=== PATIENT | female | born 1965 | race Caucasian/White ===

== ENCOUNTER 2024-09-06 22:33 | Inpatient (IN) ==
--- NOTE | 2024-09-06 22:55 | Emergency Department Note ---
Impression & Plan Bilateral flank pain, Hyponatremia, Dysuria, Hypomagnesemia, Tachycardia ED Provider Note CHIEF COMPLAINT: UTI, vomiting, fever HISTORY OF PRESENTING ILLNESS: This 59-year-old female patient presents to the emergency department for evaluation of burning with urination, blood in her urine, nausea, vomiting, and bilateral flank pain. Symptoms started 3-4 days ago, but getting progressively worsened. She now feels like she has a fever. She rates her discomfort as 7/10. She has a history of UTIs in the past and has had pyelonephritis in the past. She sees a [facility] Urologist because of frequent infections in the past, but she states that she has been doing well recently. She takes methenamine BID and Vitamin C to prevent UTIs. Denies chest pain or SOB. Denies problems with her BMs. REVIEW OF SYSTEMS: See HPI for pertinent positives and pertinent negatives. ALLERGIES: Doxycycline - unknown reaction, Keflex - Rash MEDICATIONS: Atenolol, Lisinopril, Pristiq, Metformin, Methenamine, Singulair, Pantoprazole, Lipitor, Basaglar PAST MEDICAL HISTORY: HTN, DM, Allergic Rhinitis, GERD, high cholesterol, Depression, frequent UTIs PHYSICAL EXAM: VITALS: Vitals are noted on the nurse's note and reviewed by myself. GENERAL: Non toxic, no acute distress, non-diaphoretic. SKIN: Capillary refill <2 sec. EYES: PERRLA. EOMI. Conjunctivae without injection, sclerae without icterus. NOSE: Patent without discharge. MOUTH: Mucous membranes moist. Uvula midline. Airway patent. NECK: Supple without nuchal rigidity. HEART: Regular rate and rhythm without murmurs gallops or rubs. LUNGS: Clear to auscultation bilaterally without wheezes, rales or rhonchi. No retractions or accessory muscle use. ABDOMEN: Positive bowel sounds x 4. Normal tympanic percussion. Soft, tender to palpation in the bilateral flanks as well as mildly in the left lower quadrant. Mildly positive bilateral CVA tenderness. No masses or organomegaly. Saldaña sign negative. No guarding or rebound tenderness. No focal RLQ tenderness. MUSCULOSKELETAL: No gross musculoskeletal defects. NEURO: Patient was alert and oriented. No focal neurological deficits. DIFFERENTIAL DIAGNOSIS: Differential diagnosis includes hepatitis, pancreatitis, cholecystitis, cholelithiasis, appendicitis, kidney stone, pyelonephritis, UTI, gastritis, gastroenteritis, mesenteric adenitis, obstruction, constipation, hernia, abdominal abscess, perforation, diverticulitis, IBD, ischemic colitis, abdominal aortic aneurysm, , ectopic , ovarian cyst, ovarian torsion, acute salpingitis, or others. ED COURSE AND MEDICAL DECISION MAKING: MEDICATIONS GIVEN: Toradol 10 mg IV, Zofran 4 mg IV, 1 L normal saline solution bolus. 1 g magnesium IV. MONITOR: Continuous equipment monitor phototypesetting: Order was placed for continuous equipment monitor phototypesetting. Patient was placed on the equipment monitor phototypesetting and continuous pulse ox. Patient was noted to be in sinus tachycardia at an initial rate of 105 bpm per my interpretation. EKG: EKG was interpreted by myself and Dr. Tracy as sinus tachycardia at 130 bpm with possible supraventricular tachycardia, but no acute ST or T wave changes. INTERPRETATION OF LABS: I interpreted the labs with full lab results as below in the lab section of this note. Pertinent lab results discussed in the MDM section below. INTERPRETATION OF IMAGING: Chest x-ray was interpreted by myself is negative for acute cardiopulmonary etiology. Radiology report is still pending. Additional imaging studies were interpreted by myself and read by radiology as per the imaging section of this note. CT scan of the abdomen and pelvis with IV contrast showed no evidence of hydronephrosis, nephrolithiasis, or obstructive uropathy. There is hepatic steatosis and status postcholecystectomy. Diverticulosis with no evidence of diverticulitis. No bowel obstruction. No other acute abnormalities. EXTERNAL RECORDS REVIEWED: I reviewed the patient's last PCP visit from April 2024 to confirm her medication list. No recent urology office visit note in the system per case management. CONSULTATIONS: On-call hospitalist MDM SUMMARY: I examined the patient. The patient has a history of frequent UTIs and history of pyelonephritis. She started with urinary symptoms and bilateral flank pain 3 to 4 days ago. She now feels like she might have a fever, but was afebrile upon presentation. The patient states that she had been doing well recently with her UTIs after being started on methenamine BID and Vitamin C to prevent UTIs. An IV lock was placed and labs were drawn. The patient's blood sugar was elevated at 315 and she was initially tachycardic at 126, but she improved to the low 100s to 90s after 1 L normal saline solution bolus. She was given Toradol 10 mg IV and Zofran 4 mg IV with improvement of her pain. White blood cell count elevated 11.43. Hemoglobin normal at 12.8. Platelet count normal at 329. PT/INR normal. Sodium low at 124 with a normal potassium of 3.6. Glucose elevated at 315 and alk phos 125, but CMP otherwise unremarkable. Magnesium low 1.6 and she was given 1 g of magnesium IV. Lipase normal. Urinalysis with 2+ glucose, but no evidence for UTI and no blood. CT scan of the abdomen and pelvis with IV contrast showed no evidence of hydronephrosis, nephrolithiasis, or obstructive uropathy. There is hepatic steatosis and status postcholecystectomy. Diverticulosis with no evidence of diverticulitis. No bowel obstruction. No other acute abnormalities. When I was discussing the results of the patient's CT scan findings, the patient's heart rate went into the 150s. The patient states that she felt like her heart was beating faster, but she denied any chest pain or shortness of breath. EKG was interpreted by myself and Dr. Tracy as sinus tachycardia at 130 bpm with possible supraventricular tachycardia, but no acute ST or T wave changes. The patient's heart rate quickly resolved down to the low 100s and 90s again without any intervention. High-sensitivity troponin x 2 were normal. Chest x-ray was interpreted by myself is negative for acute cardiopulmonary etiology. I had a meaningful discussion about this patient with Dr. Tracy who agrees with my assessment and the treatment plan. Due to the patient's hyponatremia, hypomagnesemia, and episode of sinus tachycardia versus supraventricular tachycardia, we feel the patient requires admission for further evaluation and treatment. I spoke with the on-call hospitalist who agreed to admit the patient for further management. Please refer to their dictation for further details. The patient's care was transferred in stable condition. DIAGNOSIS: Bilateral flank pain Dysuria Hyponatremia Hypomagnesemia Tachycardia Past Med/Surg History Problem List (Updated 09/07/24 @ 20:30 by Marietta Barkley PA-C) Tachycardia (Acute) Hypomagnesemia (Acute) Dysuria (Acute) Hyponatremia (Acute) Bilateral flank pain (Acute) Irritable bladder Hypothyroidism Insulin-requiring or dependent type II diabetes mellitus Psychogenic polydipsia Hypo-osmolar hyponatremia Hyponatremia Social History Smoking Status: Never smoker Second Hand Exposure: No; Do You Dip or Chew Tobacco: No; Tobacco Cessation Education Requested by Patient: No Hx Alcohol Use: No Hx Substance Use: No Preferred Language: Monegasque Communication Ability: Effective Banquet Server Required: No Beliefs That Will Affect Care: None Current Living Situation: Alone Other Information That Helps Us Care for You: No Feels Safe at Home: Yes Safety Concerns: Feels Safe At This Time Assistive Devices: None Allergies Allergies Allergy/AdvReac Type Severity Reaction Status Date / Time cephalexin [From Keflex] Allergy Rash Verified 09/06/24 23:12 doxycycline Allergy Verified 09/06/24 23:12 Home Meds Home Medications Medication Instructions Recorded Confirmed atenolol 25 mg tablet 25 mg PO DAILY 09/07/24 09/07/24 atorvastatin 40 mg tablet (Lipitor) 40 mg PO DAILY 09/07/24 09/07/24 dulaglutide 4.5 mg/0.5 mL 4.5 mg subcut WK 09/07/24 09/07/24 subcutaneous pen injector (Trulicity) insulin aspart U-100 100 unit/mL subcut 09/07/24 (3 mL) subcutaneous pen (Novolog FlexPen U-100 Insulin aspart) insulin glargine 100 unit/mL (3 16 unit subcut 09/07/24 mL) subcutaneous pen (Basaglar KwikPen U-100 Insulin) levothyroxine 25 mcg tablet 25 mcg PO DAILY 09/07/24 09/07/24 lisinopril 2.5 mg tablet 2.5 mg PO DAILY 09/07/24 09/07/24 metformin 1,000 mg tablet 1,000 mg PO BID 09/07/24 09/07/24 methenamine hippurate 1 gram tablet g 09/07/24 montelukast 10 mg tablet 10 mg PO 09/07/24 nitrofurantoin 100 mg PO BID 09/07/24 09/07/24 monohydrate/macrocrystals 100 mg capsule pantoprazole 40 mg tablet,delayed 40 mg PO DAILY 09/07/24 09/07/24 release pregabalin 75 mg capsule 75 mg PO BID 09/07/24 09/07/24 trospium 20 mg tablet 20 mg PO BID 09/07/24 09/07/24 Results & Data (ED) Vital Signs Vital Signs - 24 hr 09/06/24 22:38 09/06/24 22:52 09/06/24 23:01 Temperature 36.2 C L Temperature Source Temporal Artery Scan Pulse Rate 126 H 103 H Pulse Rate [Left] 102 H Pulse Rhythm Pulse Rhythm [Left] Regular Pulse Strength [Left] Normal Respiratory Rate 17 20 Respiratory Effort / Characteristics Non-Labored Spontaneous Non-Labored Spontaneous Respiratory Depth Normal Normal Respiratory Pattern Regular Regular Blood Pressure 158/79 H Blood Pressure [Left Arm] 156/81 H Blood Pressure Mean 105 Blood Pressure Mean [Left Arm] 106 Blood Pressure Position [Left Arm] Lying Pulse Oximetry 99 100 Oxygen Delivery Method Room Air Room Air Sepsis Recent Fever Within 48 Hours Yes Sepsis New/Unexplained Change in Mental Status No Sepsis Action Taken by Nursing No Action Required 09/06/24 23:13 09/07/24 01:00 09/07/24 02:52 Temperature Temperature Source Pulse Rate 108 H 127 H Pulse Rate [Left] 104 H Pulse Rhythm Regular Pulse Rhythm [Left] Regular Pulse Strength [Left] Normal Respiratory Rate 20 20 Respiratory Effort / Characteristics Non-Labored Spontaneous Respiratory Depth Normal Respiratory Pattern Blood Pressure Blood Pressure [Left Arm] 147/83 H Blood Pressure Mean Blood Pressure Mean [Left Arm] 104 Blood Pressure Position [Left Arm] Lying Pulse Oximetry 100 99 Oxygen Delivery Method Room Air Room Air Sepsis Recent Fever Within 48 Hours Sepsis New/Unexplained Change in Mental Status Sepsis Action Taken by Nursing Laboratory Data 09/07/24 06:35 09/07/24 06:35 Lab Results 09/06/24 09/07/24 Range/Units 22:47 02:57 WBC 11.43 H (4.8-10.8) K/ul RBC 4.34 (4.20-5.40) M/uL Hgb 12.8 (12.0-16.0) g/dl Hct 36.1 L (37.0-47.0) % MCV 83.2 (80.0-100.0) fL MCH 29.5 (25.0-34.0) pg MCHC 35.5 (32.0-36.0) g/dL RDW Std Deviation 37.4 (36.4-46.3) fL RDW Coeff of Tye 12.3 (11.5-14.5) % Plt Count 329 (130-400) K/uL MPV 10.9 (9.4-12.4) fL Immature Gran % (Auto) 0.4 % Neut % (Auto) 68.2 % Lymph % (Auto) 22.3 % [place] % (Auto) 8.1 % Eos % (Auto) 0.6 % Baso % (Auto) 0.4 % Neut # (Auto) 7.78 H (1.40-6.50) K/uL Lymph # (Auto) 2.55 (1.20-3.40) K/uL [facility] # (Auto) 0.93 H (0.11-0.59) K/uL Eos # (Auto) 0.07 (0.00-0.50) K/uL Baso # (Auto) 0.05 (0.00-0.20) K/uL Immature Gran # (Auto) 0.05 (0.01-0.20) K/uL PT 10.3 (9.0-12.0) Seconds INR 0.9 (0.9-1.1) Sodium 124 L (136-145) mmol/L Potassium 3.6 (3.5-5.1) mmol/L Chloride 89 L (98-107) mmol/L Carbon Dioxide 26 (21-32) mmol/L Anion Gap 9 (3-11) BUN 7 (6-23) mg/dl Creatinine 0.62 (0.6-1.2) mg/dl Est Cr Clr Drug Dosing 99.2 ml/min eGFR 102.52 BUN/Creatinine Ratio 11.3 (10-20) Glucose 315 H* (70-99(Fasting)) mg/dl Osmolality 272 L (280-300) mOsm/kg Calcium 10.2 (8.6-10.3) mg/dl Magnesium 1.6 L (1.7-2.4) mg/dl Total Bilirubin 0.7 (0.2-1.0) mg/dl AST 16 (13-39) U/L ALT 20 (7-52) U/L Alkaline Phosphatase 125 H (34-104) U/L Troponin I High Sens 6.0 4.4 (0-14) pg/ml Total Protein 7.9 (6.0-8.3) gm/dl Albumin 4.7 (3.4-5.0) gm/dl Globulin 3.2 (2.5-4.0) gm/dl Albumin/Globulin Ratio 1.5 (0.9-2) Lipase 12 (11-82) U/L Procalcitonin < 0.02 (0-0.5) ng/ml TSH 2.532 (0.300-4.500) uIu/ml Urine Color Yellow Urine Appearance Clear (Clear) Urine pH 5.5 (4.5-7.5) Ur Specific [place] 1.005 (1.000-1.030) Urine Protein Negative (Negative) Urine Glucose (UA) 2+ H (Negative) Urine Ketones Negative (Negative) Urine Blood Negative (Negative) Urine Nitrite Negative (Negative) Urine Bilirubin Negative (Negative) Urine Urobilinogen Negative (Negative) Ur Leukocyte Esterase Negative (Negative) Urine Osmolality 81 L (500-800) mOsm/kg Ur Random Sodium < 10 mmol/L Urine Opiates Screen Neg (Neg) Ur Methadone, Qual Neg (Neg) Urine Fentanyl Screen Neg (Neg) Urine Barbiturates Neg (Neg) Ur Phencyclidine (PCP) Neg (Neg) U Amphetamin/Meth Scrn Neg (Neg) MDMA (Ecstasy) Screen Neg (Neg) U Benzodiazepines Scrn Neg (Neg) Ur Cocaine Metabolite Neg (Neg) U Marijuana (THC) Screen Neg (Neg) Administered Medications Acetaminophen (Acetaminophen 500 Mg Tab) 500 mg PO Q6H PRN PRN Reason: fever/pain Stop: 10/07/24 04:30 Last Admin: 09/07/24 13:31 Dose: 500 mg Documented By: LESA Atenolol (Atenolol 25 Mg Tablet) 25 mg PO DAILY [facility] Stop: 10/07/24 08:59 Last Admin: 09/07/24 08:29 Dose: 25 mg Documented By: LESA Atorvastatin Calcium (Atorvastatin 40 Mg Tab) 40 mg PO DAILY [facility] Stop: 10/07/24 08:59 Last Admin: 09/07/24 08:29 Dose: 40 mg Documented By: LESA Enoxaparin Sodium (Enoxaparin Inj 40 Mg/0.4 Ml Syr) 40 mg SQ QAM [facility] Stop: 10/07/24 08:59 Last Admin: 09/07/24 08:29 Dose: 40 mg Documented By: LESA Insulin Aspart (Insulin Aspart Per Unit Charge) 0 units SC ACHS [facility] Stop: 10/07/24 11:29 Last Admin: 09/07/24 17:05 Dose: 5 units Documented By: LESA Co-signed By: YVONNE Admin: 09/07/24 11:51 Dose: 8 units Documented By: LESA Co-signed By: KEVIN Levothyroxine Sodium (Levothyroxine Sodium 25 Mcg Tablet) 25 mcg PO DAILYBB TONEY Stop: 10/07/24 06:29 Last Admin: 09/07/24 08:29 Dose: 25 mcg Documented By: LESA Oxybutynin Chloride (Oxybutynin Chloride Xl 5 Mg Tabcr) 5 mg PO DAILY TONEY Stop: 10/07/24 08:59 Last Admin: 09/07/24 08:29 Dose: 5 mg Documented By: LESA Pantoprazole Sodium (Pantoprazole 40 Mg Tab) 40 mg PO DAILY TONEY Stop: 10/07/24 08:59 Last Admin: 09/07/24 08:29 Dose: 40 mg Documented By: LESA Pregabalin (Pregabalin 75 Mg Cap) 75 mg PO BID TONEY Stop: 10/07/24 08:59 Last Admin: 09/07/24 08:27 Dose: Not Given Documented By: LESA Discontinued Medications Sodium Chloride (Nss) 1,000 mls @ 999 mls/hr IV .Q1H1M ONE Stop: 09/07/24 01:14 Last Infusion: 09/07/24 02:03 Dose: Infused Documented By: Admin: 09/07/24 00:38 Dose: 999 mls/hr Documented By: KT Magnesium Sulfate/Dextrose (Magnesium Sulfate / D5w) 1 gm in 100 mls @ 100 mls/hr IV NOW STA Stop: 09/07/24 03:59 Last Infusion: 09/07/24 05:12 Dose: Infused Documented By: Admin: 09/07/24 04:12 Dose: 100 mls/hr Documented By: HÉCTOR Insulin Aspart (Insulin Aspart Per Unit Charge) 0 units SC ONE STA Stop: 09/07/24 03:59 Last Admin: 09/07/24 04:15 Dose: 6 units Documented By: HÉCTOR Co-signed By: CARTER Insulin Glargine (Lantus Per Unit Charge) 10 units SQ NOW STA Stop: 09/07/24 03:32 Last Admin: 09/07/24 04:15 Dose: 10 units Documented By: HÉCTOR Co-signed By: CARTER Ioversol (Optiray 320 100ml) 100 ml IV ONCE ONE Stop: 09/07/24 00:28 Last Admin: 09/07/24 00:27 Dose: 93 ml Documented By: RUBY Ketorolac Tromethamine (Ketorolac Tromethamine 15 Mg/Ml Vial) 10 mg IV NOW STA Stop: 09/06/24 23:13 Last Admin: 09/06/24 23:19 Dose: 10 mg Documented By: KT Metoprolol Tartrate (Metoprolol Tartrate 1 Mg/Ml Vial) 2.5 mg IV NOW STA Stop: 09/07/24 03:13 Last Admin: 09/07/24 04:14 Dose: 2.5 mg Documented By: HÉCTOR Nitrofurantoin Macrocrystals (Nitrofurantoin Monohydrate 100 Mg Cap) 100 mg PO BID TONEY Stop: 10/07/24 08:59 Last Admin: 09/07/24 08:29 Dose: 100 mg Documented By: LESA Ondansetron HCl (Ondansetron Inj 2 Mg/Ml 2 Ml Vial) 4 mg IV NOW STA Stop: 09/06/24 23:13 Last Admin: 09/06/24 23:19 Dose: 4 mg Documented By: KT Potassium Chloride (Potassium Chloride Pwd 20 Meq Pack) 40 meq PO NOW STA Stop: 09/07/24 05:36 Last Admin: 09/07/24 06:39 Dose: 40 meq Documented By: IVETTE Discharge Plan Visit Data Chief Complaint: Hematuria Stated Complaint: UTI, VOMIT, FEVER CHILLS, ED Provider: Meet Tracy ED Midlevel Provider: Marietta Barkley Discharge Problem: Bilateral flank pain, Hyponatremia, Dysuria, Hypomagnesemia, Tachycardia Patient Disposition: Admitted As Inpatient Condition: Good Discharge Instructions Interventions: ED Discharge Assessment Last Done: 09/07/24 04:50
[2024-09-06] MEDS: ONDANSETRON INJ 2 MG/ML 2 ML VIAL IV STA (23:19)
[2024-09-06] MEDS: KETOROLAC TROMETHAMINE 15 MG/ML VIAL IV STA (23:19)
[2024-09-06 23:37] LABS: Appearance Urine Clear (Clear); Basophils # (auto) 0.05 K/uL (0.00-0.20); Basophils % (auto) 0.4 %; Bilirubin Urine Negative (Negative); Blood Urine Negative (Negative); Color Urine Yellow; Eosinophils # (auto) 0.07 K/uL (0.00-0.50); Eosinophils % (auto) 0.6 %; Glucose Urine UA 2+ (Negative); Hematocrit (blood only) 36.1 % (37.0-47.0); Hemoglobin 12.8 g/dl (12.0-16.0); Immature Granulocytes # (auto) 0.05 K/uL (0.01-0.20); Immature Granulocytes % (auto) 0.4 %; Ketones Urine Negative (Negative); Leukocyte Esterase Urine Negative (Negative); Lymphocytes # (auto) 2.55 K/uL (1.20-3.40); Lymphocytes % (auto) 22.3 %; Mean Corpuscular Hemoglobin 29.5 pg (25.0-34.0); Mean Corpuscular Hgb Conc 35.5 g/dL (32.0-36.0); Mean Corpuscular Volume 83.2 fL (80.0-100.0); Mean Platelet Volume 10.9 fL (9.4-12.4); Monocytes # (auto) 0.93 K/uL (0.11-0.59); Monocytes % (auto) 8.1 %; Neutrophils # (auto) 7.78 K/uL (1.40-6.50); Neutrophils % (auto) 68.2 %; Nitrite Urine Negative (Negative); Platelet Count 329 K/uL (130-400); Protein Urine Negative (Negative); RDW Coefficient of Variation 12.3 % (11.5-14.5); RDW Standard Deviation 37.4 fL (36.4-46.3); Red Blood Count 4.34 M/uL (4.20-5.40); Specific Gravity Urine 1.005 (1.000-1.030); Urobilinogen Urine Negative (Negative); White Blood Count 11.43 K/ul (4.8-10.8); pH Urine 5.5 (4.5-7.5)
[2024-09-07 00:03] LABS: INR 0.9 (0.9-1.1); Prothrombin Time 10.3 Seconds (9.0-12.0)
[2024-09-07 00:11] LABS: Albumin Globulin Ratio 1.5 (0.9-2); Albumin Level 4.7 gm/dl (3.4-5.0); BUN Creatinine Ratio 11.3 (10-20); Bilirubin,Total 0.7 mg/dl (0.2-1.0); Calcium 10.2 mg/dl (8.6-10.3); Creatinine Clr Calc Pharmacy 99.2 ml/min; Globulin 3.2 gm/dl (2.5-4.0); Magnesium 1.6 mg/dl (1.7-2.4); Potassium 3.6 mmol/L (3.5-5.1); Total Protein 7.9 gm/dl (6.0-8.3)
[2024-09-07] MEDS: OPTIRAY 320 100ml IV ONE (00:27)
[2024-09-07] MEDS: SODIUM CHLORIDE 0.9% 1,000 ML IV ONE (00:38)
--- NOTE | 2024-09-07 02:27 | CT Scan Report ---
Exam(s): CT ABDOMEN + PELVIS With Contrast IV Amt: 93 ML OPTIRAY 320 EXAM: CT Abdomen and Pelvis With Intravenous Contrast CLINICAL HISTORY: Reason for exam: Bilateral flank pain, urinary symptoms, h/o pyelo. TECHNIQUE: Axial computed tomography images of the abdomen and pelvis with intravenous contrast. CTDI is 20 mGy and DLP is 1065 mGy-cm. Automated exposure control was utilized for the study. A dose lowering technique was utilized adhering to the principles of ALARA. CONTRAST: Patient received 93 ML OPTIRAY 320 of IV contrast COMPARISON: No relevant prior studies available. FINDINGS: Lung bases: Unremarkable. No mass. No consolidation. ABDOMEN: Liver: Hepatic steatosis. Gallbladder and bile ducts: Cholecystectomy. No ductal dilation. Pancreas: Unremarkable. No mass. No ductal dilation. Spleen: Unremarkable. No splenomegaly. Adrenals: Unremarkable. No mass. Kidneys and ureters: Unremarkable. No hydronephrosis, nephrolithiasis, or obstructive uropathy. Stomach and bowel: No acute diverticulitis. No small bowel obstruction. No free intraperitoneal air. PELVIS: Appendix: No findings to suggest acute appendicitis. Bladder: Unremarkable. No mass. Reproductive: Unremarkable as visualized. ABDOMEN and PELVIS: Intraperitoneal space: Unremarkable. No free air. No significant fluid collection. Bones/joints: Degenerative changes of the spine. No acute fracture. No dislocation. Soft tissues: Unremarkable. Vasculature: Atherosclerotic changes of the aorta. No abdominal aortic aneurysm. Lymph nodes: Unremarkable. No enlarged lymph nodes. IMPRESSION: 1. No hydronephrosis, nephrolithiasis, or obstructive uropathy. 2. Hepatic steatosis. 3. Cholecystectomy. 4. No acute diverticulitis. No small bowel obstruction. No free intraperitoneal air. Electronically signed by: Noé Melendez MD 09/07/24 02:26 AM
--- NOTE | 2024-09-07 03:29 | History & Physical Report ---
Date of Service September 07, 2024 Assessment & Plan (1) Hyponatremia: Plan: Acute on chronic Corrected serum sodium level for hyperglycemia 127 Possible to underlying psychogenic polydipsia Tachycardia secondary to illness rule out active amphetamine abuse hypertension, slightly elevated hyperlipidemia, on statin Rx bronchial asthma, not in acute exacerbation DM 2 insulin requiring, hyperglycemia on ER blood work, suboptimal control as of outpatient hemoglobin A1c of 7.7 from last year hypothyroidism, euthyroid as of today's TSH chronic anemia, hemoglobin better than baseline possibly from mild hemoconcentration IBS recurrent UTIs on chronic methenamine suppression Rx/chronic cystitis/history stress/urge urinary incontinence/neurogenic bladder as per records, workup negative for acute infection, suspect psychiatric component to patient's symptom s given normal UA and review of outpatient provider notes. schizoaffective disorder/anxiety/mood disorder, at baseline as per patient chronic pain/chronic fatigue syndrome past tobacco abuse PCU given tachycardia 1.5 L fluid restriction for now Hyponatremia workup Recheck serum sodium after initial fluid bolus at the ER Hold lisinopril for now given chronic hyponatremia Nephrology consult Re: Hyponatremia Urine tox IV Lopressor [address] of patient's home atenolol Basal bolus insulin, ISS BG goal 1 10-1 40, carb count coverage, update hemoglobin A1c DVT prophylaxis. Lovenox subcu Full code Text document was generated using [employer] voice recognition software. It may contain grammatical or spelling errors. Kindly contact undersigned for clarification of any documentation item in question. History of Present Illness Chief Complaint: UTI, hematuria Primary Care Provider: Dr. Escalera/Sandy TORRES History obtained from patient and records. Medical history significant for hypertension, hyperlipidemia, bronchial asthma, DM 2 insulin requiring, hypothyroidism, chronic hyponatremia, chronic anemia (baseline hemoglobin of 11), IBS, recurrent UTIs on chronic methenamine suppression Rx, chronic cystitis, history stress/urge urinary incontinence, neurogenic bladder as per records, schizoaffective disorder as per records, anxiety/mood disorder, chronic pain, chronic fatigue syndrome, history amphe tamine abuse as per records, past tobacco abuse. Patient is a resident of [place], [place] who drove to town yesterday looking for shopping places. Recent overnight confinement at [place], [place] last April 2024 for UTI symptoms and hyponatremia. Serum sodium 127 at time of admission. Hyponatremia attributed by patient to stress and dehydration as per documentation. Contradictory prescriptions during confinement as per discharge note. As per patient, she was pulled over the road by police because there were " a lot of accidents yesterday." She then told police dispatcher that she has had 2 days history of achy abdominal and flank pain and hematuria symptoms. No fever, no chills, no chest pain, no SOB. Admits to drinking at least 2 L of water every day. Denies unusual stress. She requested to be brought to a nearby hospital to get checked out while her vehicle was impounded. Highest heart rate of 150 documented at the ER. Medical History as above Surgical History : Dental surgery, silicone implant, cholecystectomy, urologic procedures Family History : Heart disease, DM, mental illness Personal/Social history : Past tobacco abuse, no EtOH intake Allergies Allergy/AdvReac Type Severity Reaction Status Date / Time cephalexin [From Keflex] Allergy Rash Verified 09/06/24 23:12 doxycycline Allergy Verified 09/06/24 23:12 Home Medications Medication Instructions Recorded Confirmed Type atenolol 25 mg tablet 25 mg PO DAILY 09/07/24 09/07/24 History atorvastatin 40 mg tablet (Lipitor) 40 mg PO DAILY 09/07/24 09/07/24 History dulaglutide 4.5 mg/0.5 mL 4.5 mg subcut WK 09/07/24 09/07/24 History subcutaneous pen injector (Trulicity) insulin aspart U-100 100 unit/mL subcut 09/07/24 History (3 mL) subcutaneous pen (Novolog FlexPen U-100 Insulin aspart) insulin glargine 100 unit/mL (3 16 unit subcut 09/07/24 History mL) subcutaneous pen (Basaglar KwikPen U-100 Insulin) levothyroxine 25 mcg tablet 25 mcg PO DAILY 09/07/24 09/07/24 History lisinopril 2.5 mg tablet 2.5 mg PO DAILY 09/07/24 09/07/24 History metformin 1,000 mg tablet 1,000 mg PO BID 09/07/24 09/07/24 History methenamine hippurate 1 gram tablet g 09/07/24 History montelukast 10 mg tablet 10 mg PO 09/07/24 History nitrofurantoin 100 mg PO BID 09/07/24 09/07/24 History monohydrate/macrocrystals 100 mg capsule pantoprazole 40 mg tablet,delayed 40 mg PO DAILY 09/07/24 09/07/24 History release pregabalin 75 mg capsule 75 mg PO BID 09/07/24 09/07/24 History trospium 20 mg tablet 20 mg PO BID 09/07/24 09/07/24 History Past Med/Surg History Problem List (Updated 09/07/24 @ 05:36 by Corona Phillips MD) Hyponatremia Social History Smoking Status: Never smoker Second Hand Exposure: No; Do You Dip or Chew Tobacco: No; Tobacco Cessation Education Requested by Patient: No Hx Alcohol Use: No Hx Substance Use: No Preferred Language: Lithuanian Communication Ability: Effective Technical Artist Required: No Beliefs That Will Affect Care: None Current Living Situation: Alone Other Information That Helps Us Care for You: No Feels Safe at Home: Yes Safety Concerns: Feels Safe At This Time Assistive Devices: None Review of Systems Review of Systems: As per HPI, all other systems reviewed and negative Physical Exam Physical Exam: GENERAL: Comfortable, pleasant, no respiratory distress SKIN: Normal color, warm HEENT: [place] palpebral conjunctivae, no ptosis, dry buccal mucosa NECK : Supple, no tenderness CHEST : CTA, no tenderness HEART : Tachycardic, no obvious murmurs ABDOMEN: Some distention, minimal hypogastric tenderness EXTREMITIES : No LE swelling/tenderness, no other conspicuous deformities noted NEUROLOGIC : Coherent, no facial asymmetry, no other gross focality Results & Data Results & Data Vital Signs (Past 12 Hours) Vital Signs Temp Pulse Pulse Resp BP BP Pulse Ox 09/07/24 01:00 104 H 20 147/83 H 99 09/06/24 23:13 108 H 20 100 09/06/24 23:01 102 H 20 156/81 H 100 09/06/24 22:52 103 H 09/06/24 22:38 36.2 C L 126 H 17 158/79 H 99 O2 Del Method 09/07/24 01:00 Room Air 09/06/24 23:13 Room Air 09/06/24 23:01 Room Air 09/06/24 22:52 09/06/24 22:38 Room Air Laboratory Results Laboratory Results WBC 11.43 K/ul (4.8-10.8) H 09/06/24 22:47 RBC 4.34 M/uL (4.20-5.40) 09/06/24 22:47 Hgb 12.8 g/dl (12.0-16.0) 09/06/24 22:47 Hct 36.1 % (37.0-47.0) L 09/06/24 22:47 MCV 83.2 fL (80.0-100.0) 09/06/24 22:47 MCH 29.5 pg (25.0-34.0) 09/06/24 22:47 MCHC 35.5 g/dL (32.0-36.0) 09/06/24 22:47 RDW Std Deviation 37.4 fL (36.4-46.3) 09/06/24 22:47 RDW Coeff of Tye 12.3 % (11.5-14.5) 09/06/24 22:47 Plt Count 329 K/uL (130-400) 09/06/24 22:47 MPV 10.9 fL (9.4-12.4) 09/06/24 22:47 Immature Gran % (Auto) 0.4 % 09/06/24 22:47 Neut % (Auto) 68.2 % 09/06/24 22:47 Lymph % (Auto) 22.3 % 09/06/24 22:47 [place] % (Auto) 8.1 % 09/06/24 22:47 Eos % (Auto) 0.6 % 09/06/24 22:47 Baso % (Auto) 0.4 % 09/06/24 22:47 Neut # (Auto) 7.78 K/uL (1.40-6.50) H 09/06/24 22:47 Lymph # (Auto) 2.55 K/uL (1.20-3.40) 09/06/24 22:47 [place] # (Auto) 0.93 K/uL (0.11-0.59) H 09/06/24 22:47 Eos # (Auto) 0.07 K/uL (0.00-0.50) 09/06/24 22:47 Baso # (Auto) 0.05 K/uL (0.00-0.20) 09/06/24 22:47 Immature Gran # (Auto) 0.05 K/uL (0.01-0.20) 09/06/24 22:47 PT 10.3 Seconds (9.0-12.0) 09/06/24 22:47 INR 0.9 (0.9-1.1) 09/06/24 22:47 Sodium 124 mmol/L (136-145) L 09/06/24 22:47 Potassium 3.6 mmol/L (3.5-5.1) 09/06/24 22:47 Chloride 89 mmol/L (98-107) L 09/06/24 22:47 Carbon Dioxide 26 mmol/L (21-32) 09/06/24 22:47 Anion Gap 9 (3-11) 09/06/24 22:47 BUN 7 mg/dl (6-23) 09/06/24 22:47 Creatinine 0.62 mg/dl (0.6-1.2) 09/06/24 22:47 Est Cr Clr Drug Dosing 99.2 ml/min 09/06/24 22:47 eGFR 102.52 09/06/24 22:47 BUN/Creatinine Ratio 11.3 (10-20) 09/06/24 22:47 Glucose 315 mg/dl (70-99(Fasting)) H* 09/06/24 22:47 Osmolality 272 mOsm/kg (280-300) L 09/06/24 22:47 Calcium 10.2 mg/dl (8.6-10.3) 09/06/24 22:47 Magnesium 1.6 mg/dl (1.7-2.4) L 09/06/24 22:47 Total Bilirubin 0.7 mg/dl (0.2-1.0) 09/06/24 22:47 AST 16 U/L (13-39) 09/06/24 22:47 ALT 20 U/L (7-52) 09/06/24 22:47 Alkaline Phosphatase 125 U/L (34-104) H 09/06/24 22:47 Troponin I High Sens 6.0 pg/ml (0-14) 09/06/24 22:47 Total Protein 7.9 gm/dl (6.0-8.3) 09/06/24 22:47 Albumin 4.7 gm/dl (3.4-5.0) 09/06/24 22:47 Globulin 3.2 gm/dl (2.5-4.0) 09/06/24 22:47 Albumin/Globulin Ratio 1.5 (0.9-2) 09/06/24 22:47 Lipase 12 U/L (11-82) 09/06/24 22:47 Urine Color Yellow 09/06/24 22:47 Urine Appearance Clear (Clear) 09/06/24 22:47 Urine pH 5.5 (4.5-7.5) 09/06/24 22:47 Ur Specific [place] 1.005 (1.000-1.030) 09/06/24 22:47 Urine Protein Negative (Negative) 09/06/24 22:47 Urine Glucose (UA) 2+ (Negative) H 09/06/24 22:47 Urine Ketones Negative (Negative) 09/06/24 22:47 Urine Blood Negative (Negative) 09/06/24 22:47 Urine Nitrite Negative (Negative) 09/06/24 22:47 Urine Bilirubin Negative (Negative) 09/06/24 22:47 Urine Urobilinogen Negative (Negative) 09/06/24 22:47 Ur Leukocyte Esterase Negative (Negative) 09/06/24 22:47 Impressions Abdomen/Pelvis CT 09/06/24 23:13 Exam(s): CT ABDOMEN + PELVIS With Contrast IV Amt: 93 ML OPTIRAY 320 EXAM: CT Abdomen and Pelvis With Intravenous Contrast CLINICAL HISTORY: Reason for exam: Bilateral flank pain, urinary symptoms, h/o pyelo. TECHNIQUE: Axial computed tomography images of the abdomen and pelvis with intravenous contrast. CTDI is 20 mGy and DLP is 1065 mGy-cm. Automated exposure control was utilized for the study. A dose lowering technique was utilized adhering to the principles of ALARA. CONTRAST: Patient received 93 ML OPTIRAY 320 of IV contrast COMPARISON: No relevant prior studies available. FINDINGS: Lung bases: Unremarkable. No mass. No consolidation. ABDOMEN: Liver: Hepatic steatosis. Gallbladder and bile ducts: Cholecystectomy. No ductal dilation. Pancreas: Unremarkable. No mass. No ductal dilation. Spleen: Unremarkable. No splenomegaly. Adrenals: Unremarkable. No mass. Kidneys and ureters: Unremarkable. No hydronephrosis, nephrolithiasis, or obstructive uropathy. Stomach and bowel: No acute diverticulitis. No small bowel obstruction. No free intraperitoneal air. PELVIS: Appendix: No findings to suggest acute appendicitis. Bladder: Unremarkable. No mass. Reproductive: Unremarkable as visualized. ABDOMEN and PELVIS: Intraperitoneal space: Unremarkable. No free air. No significant fluid collection. Bones/joints: Degenerative changes of the spine. No acute fracture. No dislocation. Soft tissues: Unremarkable. Vasculature: Atherosclerotic changes of the aorta. No abdominal aortic aneurysm. Lymph nodes: Unremarkable. No enlarged lymph nodes. IMPRESSION: 1. No hydronephrosis, nephrolithiasis, or obstructive uropathy. 2. Hepatic steatosis. 3. Cholecystectomy. 4. No acute diverticulitis. No small bowel obstruction. No free intraperitoneal air. Electronically signed by: Noé Melendez MD 09/07/24 02:26 AM Diagnostic Findings Laboratory Results EKG could not be located at time of dictation.
[2024-09-07] MEDS ORDERED: GLUCOSE 40% GEL 15 GM TUBE PO PRN (03:31)
[2024-09-07] MEDS ORDERED: CARBOHYDRATES FOR HYPOGLYCEMIA PO PRN (03:31)
[2024-09-07] MEDS ORDERED: GLUCAGON FOR INJ 1 MG VIAL SQ PRN (03:31)
[2024-09-07] MEDS ORDERED: GLUCOSE 10 TAB/TUBE PO PRN (03:31)
[2024-09-07] MEDS ORDERED: DEXTROSE 50% 50 ML SYRINGE IV PRN (03:31)
[2024-09-07 03:37] LABS: Troponin I High Sensitivity 4.4 pg/ml (0-14)
[2024-09-07 03:46] LABS: Thyroid Stimulating Hormone 2.532 uIu/ml (0.300-4.500)
[2024-09-07] MEDS: MAGNESIUM SULFATE / D5W 1 GM/100 ML BAG IV STA (04:12)
[2024-09-07] MEDS: METOPROLOL TARTRATE 1 MG/ML VIAL IV STA (04:14)
[2024-09-07] MEDS: LANTUS PER UNIT CHARGE SQ STA (04:15)
[2024-09-07] MEDS: INSULIN ASPART PER UNIT CHARGE SC STA (04:15)
[2024-09-07] MEDS ORDERED: oxyCODONE HCL IR 5 MG TAB (IMMEDIATE RELEASE) PO PRN (04:31)
[2024-09-07 05:21] LABS: Amphetamines+Metham, Urine Neg (Neg); Barbiturates, Urine Neg (Neg); Benzodiazepine, Urine Neg (Neg); Cocaine, Urine Neg (Neg); Fentanyl, Urine Neg (Neg); MDMA (Ecstacy), Urine Neg (Neg); Marijuana, Urine Neg (Neg); Methadone, Urine Neg (Neg); Opiate, Urine Neg (Neg); Phencyclidine, Urine Neg (Neg)
[2024-09-07] MEDS: POTASSIUM CHLORIDE PWD 20 MEQ PACK PO STA (06:39)
[2024-09-07 07:00] LABS: Basophils # (auto) 0.03 K/uL (0.00-0.20); Basophils % (auto) 0.4 %; Eosinophils # (auto) 0.19 K/uL (0.00-0.50); Eosinophils % (auto) 2.3 %; Hematocrit (blood only) 33.6 % (37.0-47.0); Hemoglobin 11.5 g/dl (12.0-16.0); Immature Granulocytes # (auto) 0.03 K/uL (0.01-0.20); Immature Granulocytes % (auto) 0.4 %; Lymphocytes # (auto) 2.55 K/uL (1.20-3.40); Lymphocytes % (auto) 31.1 %; Mean Corpuscular Hemoglobin 29.3 pg (25.0-34.0); Mean Corpuscular Hgb Conc 34.2 g/dL (32.0-36.0); Mean Corpuscular Volume 85.5 fL (80.0-100.0); Mean Platelet Volume 10.3 fL (9.4-12.4); Monocytes # (auto) 1.01 K/uL (0.11-0.59); Monocytes % (auto) 12.3 %; Neutrophils # (auto) 4.39 K/uL (1.40-6.50); Neutrophils % (auto) 53.5 %; Platelet Count 269 K/uL (130-400); RDW Coefficient of Variation 12.6 % (11.5-14.5); RDW Standard Deviation 39.4 fL (36.4-46.3); Red Blood Count 3.93 M/uL (4.20-5.40)
--- NOTE | 2024-09-07 07:21 | XRay Report ---
XR chest 1V portable HISTORY: 59 years-old Female Bilateral flank pain acute chest and bilateral flank pain COMPARISON: CT abdomen and pelvis of same day TECHNIQUE: AP view of the chest FINDINGS: Cardiomediastinal and hilar silhouettes are normal. No pneumothorax, pleural effusion or airspace con solidation. Spondylotic spurring of the spine. IMPRESSION: No acute process. ACT 112: Negative or not required by law. The above report was generated using voice recognition software. It may contain grammatical, syntax o r spelling errors. Electronically signed by: Karel Sargent M.D. 09/07/2024 7:19 AM
[2024-09-07 07:54] LABS: BUN Creatinine Ratio 12.5 (10-20); Calcium 9.4 mg/dl (8.6-10.3); Creatinine Clr Calc Pharmacy 104.5 ml/min; Magnesium 2.1 mg/dl (1.7-2.4)
[2024-09-07] MEDS: PREGABALIN 75 MG CAP PO SCH (08:27)
[2024-09-07] MEDS: ENOXAPARIN INJ 40 MG/0.4 ML SYR SQ SCH (08:29)
[2024-09-07] MEDS: OXYBUTYNIN CHLORIDE XL 5 MG TABCR PO SCH (08:29)
[2024-09-07] MEDS: ATENOLOL 25 MG TABLET PO SCH (08:29)
[2024-09-07] MEDS: ATORVASTATIN 40 MG TAB PO SCH (08:29)
[2024-09-07] MEDS: PANTOprazole 40 MG TAB PO SCH (08:29)
[2024-09-07] MEDS: NITROFURANTOIN MONOHYDRATE 100 MG CAP PO SCH (08:29)
[2024-09-07] MEDS: LEVOTHYROXINE SODIUM 25 MCG TABLET PO SCH (08:29)
--- NOTE | 2024-09-07 10:47 | Electrocardiogram Report ---
Test Reason : Blood Pressure : */* mmHG Vent. Rate : 130 BPM Atrial Rate : 130 BPM P-R Int : 88 ms QRS Dur : 88 ms QT Int : 414 ms P-R-T Axes : 60 27 56 degrees QTcB Int : 609 ms Supraventricular tachycardia Abnormal ECG No previous ECGs available Confirmed by Manjit Spear ([id number]) on 09/07/2024 10:46:19 AM Referred By: REFERRED SELF Confirmed By: Manjit Spear
[2024-09-07] MEDS: INSULIN ASPART PER UNIT CHARGE SC SCH (11:51)
[2024-09-07] MEDS: ACETAMINOPHEN 500 MG TAB PO PRN (13:31)
--- NOTE | 2024-09-07 13:38 | Hospitalist Progress Note ---
Date of Service September 07, 2024 Assessment & Plan (1) Hypo-osmolar hyponatremia: (2) Psychogenic polydipsia: (3) Insulin-requiring or dependent type II diabetes mellitus: (4) Hypothyroidism: (5) Irritable bladder: Plan Patient presented with symptomatic hyponatremia, now significantly improved with nearly fluid restriction. Continue fluid restriction [facility] recommendations pending Activity as tolerated Stressed to the patient importance of fluid restriction as the main treatment for her recurrent hyponatremia Anticipate if sodium remains stable discharge home tomorrow Admission and Anticipated Discharge Date Admission Date: September 07, 2024 Subjective Patient very evasive to direct questions and how much water she actually drinks. Nurse reports that she is constantly asking for more water and suspicious that she may be getting water from the bathroom faucet. Physical Exam Physical Exam: Constitutional: Alert, nontoxic, no acute distress HEENT: Mucous membranes moist. Lungs: Clear to auscultation, decreased, no wheezes rales or rhonchi CV: S1-S2, regular Abdomen: Soft, nontender, nondistended Extremities: No significant edema Neuro: No focal deficits Psych: Cooperative, normal mood Results & Data Results & Data Vital Signs (Past 12 Hours) Vital Signs Temp Pulse Pulse Resp BP BP BP 09/07/24 10:32 37.0 C 81 17 128/77 09/07/24 08:29 92 H 09/07/24 07:33 37.0 C 105 H 18 125/73 09/07/24 05:04 09/07/24 05:04 37.1 C 99 H 18 153/81 H 09/07/24 04:29 99 H 147/80 H 09/07/24 03:48 123 H 18 153/84 H 09/07/24 02:52 127 H Pulse Ox O2 Del Method 09/07/24 10:32 97 Room Air 09/07/24 08:29 09/07/24 07:33 99 Room Air 09/07/24 05:04 Room Air 09/07/24 05:04 99 Room Air 09/07/24 04:29 09/07/24 03:48 98 Room Air 09/07/24 02:52 Diagnostic Findings Reviewed imaging, laboratory and diagnostic studies. Pertinent findings as below. Hemoglobin 11.5 Sodium 133, significantly improved Creatinine 0.56 Osmolality 272 TSH 2.53 Urine osmolality 81 Urine sodium less than 10
--- NOTE | 2024-09-07 16:47 | Nephrology Consultation ---
Date of Consultation September 07, 2024 Assessment & Plan (1) Hypo-osmolar hyponatremia: Patient with hyponatremia due to psychogenic polydipsia. Admission sodium of 124 but with a glucose of 315. Patient admitted to drinking way too much water yesterday. Her urine osmolality was 81 and urine sodium less than 10. She has been on a fluid restriction of 1.5 L. Sodium is up to 133 today. - Okay to monitor sodium daily - continue fluid limit of 1.5 L daily. Patient should be encouraged to continue fluid limit even after discharge. (2) Insulin-requiring or dependent type II diabetes mellitus: Patient with uncontrolled type 2 diabetes. The hyperglycemia is also contributing to her hyponatremia. She will continue insulin per primary team. History of Present Illness Reason for Consultation: Hyponatremia Requesting Physician: Dayo Howard DO Attending Physician: Dayo Howard DO History of Present Illness this is a 59-year-old female with history of hypertension, hyperlipidemia, asthma, type 2 diabetes, hypothyroidism, bipolar disorder, chronic hyponatremia resident of [place] who was admitted yesterday with hyponatremia with sodium of 124. Glucose was 315. Patient drove to the area for shopping and was reportedly pulled over by police for making a wrong turn. Patient has been trying to get off her diabetes medications by diet and exercise. She has lost weight about 60 lb. She is still takes insulin and Trulicity. Sodium is up trending to 133 today. She is making urine. Urine osmolality was 81 and urine sodium was less than 10. Patient knows she is supposed to have a fluid limit but for some reason yesterday she drank too much. She was also recently admitted at the [facility] for hyponatremia with sodium of 127 back in May 10, 2024. She feels better this morning denies any shortness of breath or urinary symptoms such as dysuria and frequency. No leg swelling. She is eating well. No diarrhea or vomiting. Allergies Allergy/AdvReac Type Severity Reaction Status Date / Time cephalexin [From Keflex] Allergy Rash Verified 09/06/24 23:12 doxycycline Allergy Verified 09/06/24 23:12 Home Medications Medication Instructions Recorded Confirmed Type atenolol 25 mg tablet 25 mg PO DAILY 09/07/24 09/07/24 History atorvastatin 40 mg tablet (Lipitor) 40 mg PO DAILY 09/07/24 09/07/24 History dulaglutide 4.5 mg/0.5 mL 4.5 mg subcut WK 09/07/24 09/07/24 History subcutaneous pen injector (Trulicity) insulin aspart U-100 100 unit/mL subcut 09/07/24 History (3 mL) subcutaneous pen (Novolog FlexPen U-100 Insulin aspart) insulin glargine 100 unit/mL (3 16 unit subcut 09/07/24 History mL) subcutaneous pen (Basaglar KwikPen U-100 Insulin) levothyroxine 25 mcg tablet 25 mcg PO DAILY 09/07/24 09/07/24 History lisinopril 2.5 mg tablet 2.5 mg PO DAILY 09/07/24 09/07/24 History metformin 1,000 mg tablet 1,000 mg PO BID 09/07/24 09/07/24 History methenamine hippurate 1 gram tablet g 09/07/24 History montelukast 10 mg tablet 10 mg PO 09/07/24 History nitrofurantoin 100 mg PO BID 09/07/24 09/07/24 History monohydrate/macrocrystals 100 mg capsule pantoprazole 40 mg tablet,delayed 40 mg PO DAILY 09/07/24 09/07/24 History release pregabalin 75 mg capsule 75 mg PO BID 09/07/24 09/07/24 History trospium 20 mg tablet 20 mg PO BID 09/07/24 09/07/24 History Patient History Social History Smoking Status: Never smoker Second Hand Exposure: No; Do You Dip or Chew Tobacco: No; Tobacco Cessation Education Requested by Patient: No Hx Alcohol Use: No Hx Substance Use: No Preferred Language: Wallisian Communication Ability: Effective Apprenticeship Representative Required: No Beliefs That Will Affect Care: None Current Living Situation: Alone Other Information That Helps Us Care for You: No Feels Safe at Home: Yes Safety Concerns: Feels Safe At This Time Assistive Devices: None Review of Systems 2 Review of Systems: All other systems were reviewed and negative except as noted in HPI Physical Exam 2 Physical Exam: General exam: Appears comfortable, no acute distress HEENT: Pupils are equal and reactive to light Neck: No JVD, neck is supple trachea is midline Respiratory system: Clear breath sounds bilaterally. Gastrointestinal: Abdomen is soft, non distended, non tender, bowel sounds are present CVS: Regular rate and rhythm. No murmurs, rubs or gallops Musculoskeletal: No joint or muscle tenderness Extremities: Non tender, no edema, peripheral pulses are present Neuro: Oriented, no tremors, no focal neurological deficits Skin: No rashes Results & Data Vital Signs (Past 12 Hours) Vital Signs Temp Pulse Pulse Resp BP BP Pulse Ox 09/07/24 14:54 37.1 C 90 17 110/69 95 09/07/24 10:32 37.0 C 81 17 128/77 97 09/07/24 08:29 92 H 09/07/24 07:33 37.0 C 105 H 18 125/73 99 09/07/24 05:04 09/07/24 05:04 37.1 C 99 H 18 153/81 H 99 O2 Del Method 09/07/24 14:54 Room Air 09/07/24 10:32 Room Air 09/07/24 08:29 09/07/24 07:33 Room Air 09/07/24 05:04 Room Air 09/07/24 05:04 Room Air Laboratory Results 09/07/24 06:35 09/06/24 09/07/24 22:47 06:35 WBC 11.43 H 8.20 RBC 4.34 3.93 L MCV 83.2 85.5 MCH 29.5 29.3 MCHC 35.5 34.2 RDW Std Deviation 37.4 39.4 RDW Coeff of Tye 12.3 12.6 Plt Count 329 269 MPV 10.9 10.3 Albumin 4.7
[2024-09-08 07:40] LABS: BUN Creatinine Ratio 15.8 (10-20); Calcium 9.2 mg/dl (8.6-10.3); Potassium 4.3 mmol/L (3.5-5.1)
[2024-09-08] MEDS: LANTUS PER UNIT CHARGE SQ SCH (08:30)
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
--- NOTE | 2024-09-08 16:56 | Hospitalist Progress Note ---
Date of Service September 08, 2024 Assessment & Plan (1) Psychogenic polydipsia: (2) Schizoaffective disorder: (3) Hypo-osmolar hyponatremia: (4) Insulin-requiring or dependent type II diabetes mellitus: (5) Hypothyroidism: (6) Irritable bladder: (7) Bipolar disorder with psychotic features: Plan Patient presented with symptomatic hyponatremia due to psychogenic polydipsia. With fluid restriction her sodium levels rapidly improved. She initially did not seem to be unstable with her psychiatric disease and plan was for her to be discharged today. However when preparing for discharge she had no one to pick her up that we could confirm, she reports that she did not have her car and it was impounded by the police. We were able to confirm that her car is impounded by the [place] police. 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 During this time she has unfortunately not been able to control her urges to drink water. She has been observed getting water out of the toilet to drink and has consumes significantly more than her fluid restriction. This is despite given strict instructions this morning by myself to only drink 3 cups of her bedside water container per day. She now has started to have emesis due to the excessive amounts of water that she has consumed. She is at high risk for further decompensation, severe hyponatremia and severe adverse events from this. She needs to be maintained in the hospital. Cancel discharge due to unstable psychiatric disease causing psychogenic polydipsia and high risk for recurrent symptomatic hyponatremia. One-to-one observation to ensure fluid restriction and no other self-harm Nurse given instructions to not allow patient to drink anything for at least 6 hours Consult psychiatry, communication with Dr. Sanford-he is aware of the patient and will evaluate her tomorrow for possible behavioral health unit admission. Check BMP in a.m. Case management involved to continue to help coordinate discharge plan Extensive review of outside records/epic chart. Patient has documented numerous no-show/cancellation to [facility] psychiatry appointments. She also apparently sees [facility] health. Reportedly she was to be on Depakote. Patient had a hospitalization at [facility] in [place] in April 2024 for hyponatremia with a problem list there stating she has severe bipolar disorder. Admission and Anticipated Discharge Date Admission Date: September 07, 2024 Subjective Patient sodium level was normal this morning. Discharge orders were written, however patient was unable to get transportation. And has been staying here in the hospital. Since this morning she was told not to drink out of the faucet. However, patient was observed getting water out of toilet. Patient has no insight into her need for fluid restriction. Also concerned that there is really no one that is coming to pick her up. Have not been able to confirm any of her story or contacts. Physical Exam Physical Exam: Constitutional: Alert, not toxic in appearance HEENT: Mucous membranes moist. Lungs: Clear to auscultation, decreased, no wheezes rales or rhonchi CV: S1-S2, regular Abdomen: Soft, nontender, nondistended Extremities: No significant edema Neuro: No focal deficits Psych: No insight into her condition, multiple excuses for why she drinks so much water, denies that she is drinking a lot of water despite the fact that she has been observed taking water from the toilet when then we restricted her from the faucet. Results & Data Results & Data Vital Signs (Past 12 Hours) Vital Signs Temp Pulse Resp BP BP Pulse Ox O2 Del Method 09/08/24 15:26 36.6 C 72 155/70 H 100 Room Air 09/08/24 09:37 36.8 C 99 H 16 125/73 128/82 96 09/08/24 07:07 36.8 C 99 H 128/82 96 Room Air Diagnostic Findings Reviewed imaging, laboratory and diagnostic studies. Pertinent findings as below. Sodium 139 glucose 186
[2024-09-09 07:10] LABS: BUN Creatinine Ratio 16.9 (10-20); Calcium 9.7 mg/dl (8.6-10.3); Potassium 4.3 mmol/L (3.5-5.1)
[2024-09-09] MEDS ORDERED: IBUPROFEN 200 MG TAB PO PRN (14:02)
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
[2024-09-09] MEDS ORDERED: haloperidoL 5 MG TAB PO PRN (14:53)
[2024-09-09] MEDS ORDERED: HALOPERIDOL LACTATE 5 MG/ML 1 ML VIAL IM PRN (14:53)
[2024-09-09] MEDS ORDERED: LORazepam 2 MG/1 ML VIAL IM PRN (14:53)
--- NOTE | 2024-09-09 15:46 | Discharge Summary ---
Discharge Summary Date of Service September 09, 2024 Principal Dx & Hospital Course #1 = Principal Diagnosis (1) Bipolar disorder with psychotic features: (2) Psychogenic polydipsia: (3) Schizoaffective disorder: (4) Hypo-osmolar hyponatremia: (5) Insulin-requiring or dependent type II diabetes mellitus: (6) Hypothyroidism: (7) Irritable bladder: Plan Patient presented to the emergency room with initial complaints of urinary discomfort. In the emergency room was noted to be tachycardic and significantly hyponatremic. She was admitted to the hospital. Her history revealed concern for psychogenic polydipsia. Laboratory testing confirmed a hypoosmolar hyponatremia. She was placed on strict fluid restriction. With fluid restriction her sodium normalized. There is no significant issues with cardiac arrhythmia on telemetry. She was seen by nephrology who agreed with fluid restriction and management of her diabetes. She is continued to be monitored in the hospital overnight. She continued to do well with the fluid restriction without someone watching her. On the morning of discharge her vital signs are stable. Her sodium was 139. It was stressed to her multiple times the need for fluid restriction and management of her diabetes. She expressed understanding. She will be discharged home to follow-up with her outpatient providers. As to the time of discharge, patient reports that her car has been impounded and she may not have any rod. Patient will be referred to case management social worker to help coordinate discharge to the impound yard. Unfortunately, case management, nursing staff was unable to confirm with the patient someone to pick her up. The patient spent much of the day in the hospital. During this time patient became much more persistent on drinking large amounts of water. She rapidly exceeded her fluid restricted amount. Nursing staff noted that when she was restricted from the faucet she took water from the toilet to drink. She drank so much water that she ended up having emesis. I evaluated the patient and decided to cancel the discharge and consult psychiatry. Patient was placed on one-to-one observation to make sure that she did not exceed her fluid restriction. More extensive review of outside EMR revealed that she does have a history of schizoaffective disorder and bipolar disorder. Notes revealed that she had numerous cancellations and missed office visits with psychiatry. Also appears is that she was not taking medications for her mental health disorder as what had been on med list from previous visits. She was completely restricted from warm water or fluids for the next 6 hours after this behavior was noted. She otherwise had an uneventful night. On the morning of anticipated discharge her sodium was 138. Her other electrolytes within normal range. Her creatinine was 0.65. Psychiatry evaluated the patient they felt that the patient had poor insight into her condition and was in early phases of acute manic episode with psychosis. They pursued a 302 involuntary commitment. Patient will be discharged to behavioral health unit when this is completed. Psychiatry recommended use of Haldol and/or Ativan if the patient become more agitated or anxious. Recommend continuing her other medications for her diabetes, hypothyroidism and dyslipidemia and hypertension. Notes For Next Care Provider Medication Changes From Visit Haldol and Ativan added for behavior control if needed Admission HPI Per Admitting Provider History obtained from patient and records. Medical history significant for hypertension, hyperlipidemia, bronchial asthma, DM 2 insulin requiring, hypothyroidism, chronic hyponatremia, chronic anemia (baseline hemoglobin of 11), IBS, recurrent UTIs on chronic methenamine suppression Rx, chronic cystitis, history stress/urge urinary incontinence, neurogenic bladder as per records, schizoaffective disorder as per records, anxiety/mood disorder, chronic pain, chronic fatigue syndrome, history amphetamine abuse as per records, past tobacco abuse. Patient is a resident of [place], [place] who drove to [facility] yesterday looking for shopping places. Recent overnight confinement at [place], [place] last April 2024 for UTI symptoms and hyponatremia. Serum sodium 127 at time of admission. Hyponatremia attributed by patient to stress and dehydration as per documentation. Contradictory prescriptions during confinement as per discharge note. As per patient, she was pulled over the road by police because there were " a lot of accidents yesterday." She then told master police detective that she has had 2 days history of achy abdominal and flank pain and hematuria symptoms. No fever, no chills, no chest pain, no SOB. Admits to drinking at least 2 L of water every day. Denies unusual stress. She requested to be brought to a nearby hospital to get checked out while her vehicle was impounded. Highest heart rate of 150 documented at the ER. Medical History as above Surgical History : Dental surgery, silicone implant, cholecystectomy, urologic procedures Family History : Heart disease, DM, mental illness Personal/Social history : Past tobacco abuse, no EtOH intake Admission Exam Per Admitting Provider See H&P Discharge Exam Constitutional: Alert, nontoxic HEENT: Mucous membranes moist. Lungs: Clear to auscultation, decreased, no wheezes rales or rhonchi CV: S1-S2, regular Abdomen: Soft, nontender, nondistended Extremities: No significant edema Neuro: No focal deficits Psych: Overall cooperative with a one-to-one observer, seems to be quite paranoid, quite suspicious, often speaking in a low voice so others would not hear her. Seems to have some ideas of grandeur. Has no insight into her behaviors as a cause of her medical issues. Has no insight at all into her mental health issues. In fact even at 1 time stated that she did not have schizophrenia. Updated Medication List Medication Instructions Recorded Confirmed Type atenolol 25 mg tablet 25 mg PO DAILY 09/07/24 09/07/24 History atorvastatin 40 mg tablet (Lipitor) 40 mg PO DAILY 09/07/24 09/07/24 History dulaglutide 4.5 mg/0.5 mL 4.5 mg subcut WK 09/07/24 09/07/24 History subcutaneous pen injector (Trulicity) insulin aspart U-100 100 unit/mL subcut 09/07/24 History (3 mL) subcutaneous pen (Novolog FlexPen U-100 Insulin aspart) insulin glargine 100 unit/mL (3 16 unit subcut 09/07/24 History mL) subcutaneous pen (Basaglar KwikPen U-100 Insulin) levothyroxine 25 mcg tablet 25 mcg PO DAILY 09/07/24 09/07/24 History metformin 1,000 mg tablet 1,000 mg PO BID 09/07/24 09/07/24 History methenamine hippurate 1 gram tablet g 09/07/24 History montelukast 10 mg tablet 10 mg PO 09/07/24 History pantoprazole 40 mg tablet,delayed 40 mg PO DAILY 09/07/24 09/07/24 History release pregabalin 75 mg capsule 75 mg PO BID 09/07/24 09/07/24 History trospium 20 mg tablet 20 mg PO BID 09/07/24 09/07/24 History Hospital Stay Data Consultations 09/07/24 03:07 ED Decision to Admit Stat 09/07/24 05:39 Consult Nephrology Routine 09/08/24 16:41 Consult Psychiatry Routine Diagnostic Imagining Performed 09/06/24 23:13 CT abd pelvis IV con only Stat Reviewed imaging, laboratory and diagnostic studies. Pertinent findings as below. Hemoglobin 11.5 Sodium 139, 138 potassium 4.3 Creatinine 0.56 Glucose 200 TSH 2.5 Pending Results Patient Have Any Pending Studies at Discharge: No Discharge Instructions Given to Patient (Per Discharging Provider) It is critical that you adhere to the fluid restriction. Continue to monitor your glucose and discuss further treatment options with your PCP Total Time Total Time Spent Total Time Spent (In Minutes): 39
[2024-09-09] MEDS: KETOROLAC TROMETHAMINE 10 MG TABLET PO PRN (17:07)
--- NOTE | 2024-09-09 18:24 | Communication Note ---
Date of Service: September 09, 2024 Following up on c/s from 09/07 for hyponatremia attributed to psychogenic polydipsia Pt not seen yesterday since plan was for d/c ; however after reevaluation, today decision made for 302 given concerns for active lilly and psychosis. Serum sodium corrected easily with 1.5L fluid limit. Attempted to see the patient this evening to reinforce importance of fluid limit > on my arrival to the room, she was very agitated about change in her care and concerns her pain and UTI not being addressed and that she was in wrong facility and numerous other ongoing issues. 2 nurses already in room listening to her, keeping her safe, monitoring situation. Do not believe that pt in this state will be able to understand/reflect on information about need for limiting fluid intake. Inpatient visit deferred. Will sign off NEPHRO D/C RECOMMENDATIONS -consider trial of 2L fluid limit while inpatient at [facility] >> believe she should be able to tolerate this -if fluid limit liberalized, monitor bmp daily x 4 days -will need a workable strategy for/help with limiting daily fluid intake after discharge -suggest weekly bmp x 3 if not under close supervision of fluid intake to ensure sodium not downtrending -follow up with nephrology prn
[2024-09-09] MEDS: LORazepam 1 MG TAB PO PRN (18:42)
--- NOTE | 2024-09-09 21:02 | Communication Note ---
Date of Service: September 09, 2024 8:55 PM Patient complaining of chest pain going to the left jaw and heart arm as per RN. Patient about to be discharged to [facility] as per RN. Think she is having a heart attack. Similar episode in 2004 related to her psych meds being messed up. Chest pain improved by nitroglycerin as per patient. PPE Irate, tearful EKG as per my interpretation : Rate 90, NSR, normal axis, T wave inversions anterolateral leads QTc greater than 500 Troponin 138 AP NSTEMI QTc prolongation Cancel discharge to [facility] PCU transfer Aspirin, beta-cheri (metoprolol in place of patient's atenolol), statin Rx, IV heparin TTE, Cardiology consult Re: NSTEMI N.p.o. anticipation of ischemic workup Hold Haldol given QTc prolongation Patient demanded to be transferred to facility close to residence, [facility] in [place], [place], citing displeasure with care at [facility]. Patient request cannot be accommodated due to active 302 involuntary commitment as per discussion with upper caser on-call/[facility] transfer center agent.
[2024-09-09] MEDS: NITROGLYCERIN SL 0.4 MG/TAB TAB SL STA (21:27)
[2024-09-09] MEDS: NITROGLYCERIN SL 0.4 MG/TAB TAB SL PRN (22:10)
[2024-09-09] MEDS: SODIUM CHLORIDE 0.9% 1,000 ML IV ONE (22:27)
[2024-09-09] MEDS: ASPIRIN 81 MG ECTAB PO SCH (22:27)
[2024-09-09] MEDS: ACETAMINOPHEN 1,000 MG/100 ML VIAL IV STA (22:27)
[2024-09-09 22:43] LABS: Partial Thromboplastin Time 26 Seconds (21-31)
[2024-09-09] MEDS ORDERED: MoRPHine SULFATE 4 MG/ML 1 ML CARP\\VIAL IV PRN (23:04)
[2024-09-10] MEDS: HEPARIN SODIUM/DEXTROSE 25,000 UNITS/500 ML BAG IV SCH (00:02)
[2024-09-10 00:21] LABS: Basophils # (auto) 0.07 K/uL (0.00-0.20); Basophils % (auto) 0.6 %; Eosinophils # (auto) 0.26 K/uL (0.00-0.50); Eosinophils % (auto) 2.1 %; Hematocrit (blood only) 34.7 % (37.0-47.0); Hemoglobin 11.8 g/dl (12.0-16.0); Immature Granulocytes # (auto) 0.06 K/uL (0.01-0.20); Immature Granulocytes % (auto) 0.5 %; Lymphocytes # (auto) 3.87 K/uL (1.20-3.40); Mean Corpuscular Hemoglobin 29.6 pg (25.0-34.0); Mean Corpuscular Volume 87.2 fL (80.0-100.0); Mean Platelet Volume 10.4 fL (9.4-12.4); Monocytes # (auto) 1.24 K/uL (0.11-0.59); Monocytes % (auto) 9.9 %; Neutrophils # (auto) 6.98 K/uL (1.40-6.50); Neutrophils % (auto) 55.9 %; Platelet Count 288 K/uL (130-400); RDW Coefficient of Variation 13.5 % (11.5-14.5); RDW Standard Deviation 42.6 fL (36.4-46.3); Red Blood Count 3.98 M/uL (4.20-5.40); White Blood Count 12.48 K/ul (4.8-10.8)
[2024-09-10 00:55] LABS: ANTI-Xa, UFH(UnfractionatedHep < 0.10 IU/ml (0.3-0.7); Partial Thromboplastin Time 26 Seconds (21-31)
[2024-09-10] MEDS: Heparin IV Adult Wt-Based Standard *NO* INITIAL Bolus Protocol IV STA (01:49)
[2024-09-10] MEDS: oxyCODONE HCL IR 5 MG TAB (IMMEDIATE RELEASE) PO PRN (02:58)
[2024-09-10] MEDS ORDERED: Nursing to Pharmacy Communication SCH (05:15)
[2024-09-10] MEDS: INSULIN ASPART PER UNIT CHARGE SC SCH ×2 (06:05→12:17)
[2024-09-10 06:58] LABS: Basophils # (auto) 0.07 K/uL (0.00-0.20); Basophils % (auto) 0.7 %; Eosinophils # (auto) 0.39 K/uL (0.00-0.50); Eosinophils % (auto) 4.1 %; Hematocrit (blood only) 36.2 % (37.0-47.0); Immature Granulocytes # (auto) 0.05 K/uL (0.01-0.20); Immature Granulocytes % (auto) 0.5 %; Lymphocytes # (auto) 3.48 K/uL (1.20-3.40); Lymphocytes % (auto) 36.3 %; Mean Corpuscular Hemoglobin 29.3 pg (25.0-34.0); Mean Corpuscular Hgb Conc 33.1 g/dL (32.0-36.0); Mean Corpuscular Volume 88.3 fL (80.0-100.0); Mean Platelet Volume 10.3 fL (9.4-12.4); Monocytes # (auto) 0.97 K/uL (0.11-0.59); Monocytes % (auto) 10.1 %; Neutrophils # (auto) 4.63 K/uL (1.40-6.50); Neutrophils % (auto) 48.3 %; Platelet Count 265 K/uL (130-400); RDW Coefficient of Variation 13.5 % (11.5-14.5); RDW Standard Deviation 43.4 fL (36.4-46.3); White Blood Count 9.59 K/ul (4.8-10.8)
[2024-09-10 07:09] LABS: BUN Creatinine Ratio 23.3 (10-20); Calcium 8.9 mg/dl (8.6-10.3); Chol HDL Ratio 2.8 (0-5); Creatinine Clr Calc Pharmacy 80.2 ml/min; Potassium 3.9 mmol/L (3.5-5.1)
[2024-09-10 07:17] LABS: ANTI-Xa, UFH(UnfractionatedHep 0.41 IU/ml (0.3-0.7)
[2024-09-10 07:18] LABS: Troponin I High Sensitivity 67.8 pg/ml (0-14)
[2024-09-10 08:01] LABS: Estimated Average Glucose 166 mg/dl; Hemoglobin A1C 7.4 % (4.5-5.6)
[2024-09-10] MEDS: METOPROLOL SUCC 25MG EXT REL TAB PO SCH ×2 (08:10→20:22)
[2024-09-10] MEDS: LANTUS PER UNIT CHARGE SQ SCH (08:13)
--- NOTE | 2024-09-10 09:28 | Cardiology Consultation ---
Date of Consultation September 10, 2024 Assessment & Plan (1) Elevated troponin: (2) Precordial chest pain: (3) Abnormal echocardiogram: (4) Schizoaffective disorder: (5) Insulin-requiring or dependent type II diabetes mellitus: Plan Patient is a 59-year-old female admitted with hypo osmolar hyponatremia, acute lilly in association with chronic schizophrenic disorder. Marked emotional stressors in hospital Chest pain last evening throughout the night with associated EKG changes and elevation in troponin Echocardiogram today consistent with apical ballooning cardiomyopathy versus ischemic wall motion abnormalities with focal apical expansion and hypokinesis with hyperdynamic basilar sections. Reduced ejection fraction 40% Discussed above findings in detail with patient who appears to understand well Recommended proceeding urgently to diagnostic cardiac catheterization given ongoing symptoms of chest pain Patient agreeable Planned procedure this morning History of Present Illness Reason for Consultation: Chest pain, abnormal EKG, abnormal echocardiogram Requesting Physician: Gildardo jaffeist Attending Physician: Dayo Howard, DO History of Present Illness Patient is a 59-year-old female with cardiovascular risk factors of type 2 diabetes mellitus, hyperlipidemia on therapy admitted with hypoosmolar hyponatremia. Underlying issues include schizoaffective disorder. Patient notes marked emotional stressors in association with prehospital encounters with police and subsequent admission. Per records yesterday marked agitation and subsequent chest pain last night. Cardiac enzymes elevated EKG with T wave inversion in the lateral and anterior leads Echocardiogram this morning with wall motion abnormalities at the apex consistent with apical ballooning cardiomyopathy versus acute ischemia. Currently anticoagulated with heparin Has received aspirin Does admit to chest pressure pain on initial evaluation She notes having seen senior court office assistant in the remote past. Possible symptoms of myocardial infarction in 2004 but no findings of blockages per patient. History of "tachycardia" No congestive heart failure. Functional capacity high without exertional chest pain shortness of breath or dizziness Symptoms predominantly in association with current presentation Hyponatremia improved with fluid restriction No fevers or chills Ports possible recurrent urinary tract infections with hematuria. Noted hematuria this morning though not observed by nursing staff Appetite and weight are stable Allergies Allergy/AdvReac Type Severity Reaction Status Date / Time cephalexin [From Keflex] Allergy Rash Verified 09/06/24 23:12 doxycycline Allergy Verified 09/06/24 23:12 Home Medications Medication Instructions Recorded Confirmed Type atenolol 25 mg tablet 25 mg PO DAILY 09/07/24 09/07/24 History atorvastatin 40 mg tablet (Lipitor) 40 mg PO DAILY 09/07/24 09/07/24 History dulaglutide 4.5 mg/0.5 mL 4.5 mg subcut WK 09/07/24 09/07/24 History subcutaneous pen injector (Trulicity) insulin aspart U-100 100 unit/mL subcut 09/07/24 History (3 mL) subcutaneous pen (Novolog FlexPen U-100 Insulin aspart) insulin glargine 100 unit/mL (3 16 unit subcut 09/07/24 History mL) subcutaneous pen (Basaglar KwikPen U-100 Insulin) levothyroxine 25 mcg tablet 25 mcg PO DAILY 09/07/24 09/07/24 History metformin 1,000 mg tablet 1,000 mg PO BID 09/07/24 09/07/24 History methenamine hippurate 1 gram tablet g 09/07/24 History montelukast 10 mg tablet 10 mg PO 09/07/24 History pantoprazole 40 mg tablet,delayed 40 mg PO DAILY 09/07/24 09/07/24 History release pregabalin 75 mg capsule 75 mg PO BID 09/07/24 09/07/24 History trospium 20 mg tablet 20 mg PO BID 09/07/24 09/07/24 History Patient History Social History Smoking Status: Never smoker Second Hand Exposure: No; Do You Dip or Chew Tobacco: No; Tobacco Cessation Education Requested by Patient: No Hx Alcohol Use: No Hx Substance Use: No Preferred Language: Bangladeshi Communication Ability: Effective 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: No Beliefs That Will Affect Care: None Current Living Situation: Alone Other Information That Helps Us Care for You: No Feels Safe at Home: Yes Safety Concerns: Feels Safe At This Time Assistive Devices: None Review of Systems Review of Systems: All systems reviewed & are unremarkable except as noted in HPI & below Physical Exam Constitutional: + behavioral limitations (Tangential spe ech); no acute distress Eyes: PERRL, conjunctivae normal, anicteric sclerae ENMT: external ear and nose normal, oropharynx normal Neck: trachea midline, no thyromegaly Respiratory: normal respiratory effort, lungs clear to auscultation Cardiovascular: Rate/Rhythm: regular rate and regular rhythm Heart Sounds: normal S1 and normal S2; no murmur and no cardiac rub Vessels: femoral pulses present and radial pulses present; no JVD, no carotid bruit and no femoral bruit Gastrointestinal (Abdomen): normal bowel sounds, soft, nontender, no hepatosplenomegaly Musculoskeletal: no cyanosis or clubbing, extremities motor strength 5/5 Results & Data Vital Signs (Past 12 Hours) Vital Signs Temp Pulse Pulse Resp BP BP Pulse Ox 09/10/24 08:44 115 H 09/10/24 07:26 36.7 C 90 18 120/78 97 09/10/24 04:00 36.8 C 87 16 121/78 94 09/09/24 23:27 90 09/09/24 22:59 36.6 C 91 H 18 125/84 96 09/09/24 21:34 36.3 C L 92 H 16 122/78 94 O2 Del Method 09/10/24 08:44 09/10/24 07:26 Room Air 09/10/24 04:00 Room Air 09/09/24 23:27 09/09/24 22:59 Room Air 09/09/24 21:34 Room Air Laboratory Results Laboratory Results - last 24 hr 09/09/24 09/09/24 09/09/24 11:51 16:40 21:28 WBC RBC Hgb Hct MCV MCH MCHC RDW Std Deviation RDW Coeff of Tye Plt Count MPV Immature Gran % (Auto) Neut % (Auto) Lymph % (Auto) Hardin % (Auto) Eos % (Auto) Baso % (Auto) Neut # (Auto) Lymph # (Auto) Hardin # (Auto) Eos # (Auto) Baso # (Auto) Immature Gran # (Auto) PT INR APTT PTT Ratio Heparin Anti-Xa, Unfract Sodium Potassium Chloride Carbon Dioxide Anion Gap BUN Creatinine Est Cr Clr Drug Dosing eGFR BUN/Creatinine Ratio Glucose POC Glucose 183 H 240 H 108 H Estimat Average Glucose Hemoglobin A1c Calcium Troponin I High Sens Triglycerides Cholesterol LDL Cholesterol, Calc VLDL Cholesterol, Calc HDL Cholesterol Cholesterol/HDL Ratio SARS-CoV-2, RNA, NAAT 09/09/24 09/09/24 09/09/24 21:59 23:57 Unknown WBC 12.48 H RBC 3.98 L Hgb 11.8 L Hct 34.7 L MCV 87.2 MCH 29.6 MCHC 34.0 RDW Std Deviation 42.6 RDW Coeff of Tye 13.5 Plt Count 288 MPV 10.4 Immature Gran % (Auto) 0.5 Neut % (Auto) 55.9 Lymph % (Auto) 31.0 Hardin % (Auto) 9.9 Eos % (Auto) 2.1 Baso % (Auto) 0.6 Neut # (Auto) 6.98 H Lymph # (Auto) 3.87 H Hardin # (Auto) 1.24 H Eos # (Auto) 0.26 Baso # (Auto) 0.07 Immature Gran # (Auto) 0.06 PT 11.0 INR 1.0 APTT 26 26 PTT Ratio 1.0 1.0 Heparin Anti-Xa, Unfract < 0.10 L Sodium Potassium Chloride Carbon Dioxide Anion Gap BUN Creatinine Est Cr Clr Drug Dosing eGFR BUN/Creatinine Ratio Glucose POC Glucose Estimat Average Glucose Hemoglobin A1c Calcium Troponin I High Sens 138.3 H* Triglycerides Cholesterol LDL Cholesterol, Calc VLDL Cholesterol, Calc HDL Cholesterol Cholesterol/HDL Ratio SARS-CoV-2, RNA, NAAT NEGATIVE 09/10/24 09/10/24 05:55 06:28 WBC 9.59 RBC 4.10 L Hgb 12.0 Hct 36.2 L MCV 88.3 MCH 29.3 MCHC 33.1 RDW Std Deviation 43.4 RDW Coeff of Tye 13.5 Plt Count 265 MPV 10.3 Immature Gran % (Auto) 0.5 Neut % (Auto) 48.3 Lymph % (Auto) 36.3 Hardin % (Auto) 10.1 Eos % (Auto) 4.1 Baso % (Auto) 0.7 Neut # (Auto) 4.63 Lymph # (Auto) 3.48 H Hardin # (Auto) 0.97 H Eos # (Auto) 0.39 Baso # (Auto) 0.07 Immature Gran # (Auto) 0.05 PT INR APTT PTT Ratio Heparin Anti-Xa, Unfract 0.41 Sodium 138 Potassium 3.9 Chloride 104 Carbon Dioxide 26 Anion Gap 8 BUN 17 Creatinine 0.73 Est Cr Clr Drug Dosing 80.2 eGFR 94.68 BUN/Creatinine Ratio 23.3 H Glucose 172 H POC Glucose 170 H Estimat Average Glucose 166 Hemoglobin A1c 7.4 H Calcium 8.9 Troponin I High Sens 67.8 H* D Triglycerides 115 Cholesterol 138 LDL Cholesterol, Calc 66 VLDL Cholesterol, Calc 23 HDL Cholesterol 49 Cholesterol/HDL Ratio 2.8 SARS-CoV-2, RNA, NAAT
[2024-09-10] MEDS: niCARdipine HCL INJ 2.5 MG/ML 10 ML AMP ONE (10:37)
[2024-09-10] MEDS: NITROGLYCERIN/D5W 100MCG/ML 20ML SYR ONE (10:38)
[2024-09-10] MEDS: ONDANSETRON INJ 2 MG/ML 2 ML VIAL ONE (10:39)
[2024-09-10] MEDS: fentaNYL citrate PF 100 MCG/2 ML VIAL ONE (10:45)
[2024-09-10] MEDS: MIDAZOLAM HCL 1 MG/ML 2ML VIAL ONE (10:45)
[2024-09-10] MEDS: OPTIRAY 350 ONE (10:46)
--- NOTE | 2024-09-10 10:52 | Pre Anesthesia Assessment ---
Date of Service September 10, 2024 Pre Sedation Assessment Vital Signs Temp Pulse Pulse Resp BP BP Pulse Ox 09/10/24 10:02 86 16 137/83 98 09/10/24 08:44 115 H 09/10/24 07:26 98.1 F 90 18 120/78 97 09/10/24 04:00 98.2 F 87 16 121/78 94 09/09/24 23:27 90 09/09/24 22:59 97.9 F 91 H 18 125/84 96 09/09/24 21:34 97.3 F L 92 H 16 122/78 94 09/09/24 20:36 98.1 F 92 H 18 112/75 99 09/09/24 20:11 98.4 F 95 H 16 125/80 145/85 H 99 O2 Del Method 09/10/24 10:02 Room Air 09/10/24 08:44 09/10/24 07:26 Room Air 09/10/24 04:00 Room Air 09/09/24 23:27 09/09/24 22:59 Room Air 09/09/24 21:34 Room Air 09/09/24 20:36 Room Air 09/09/24 20:11 Cardiovascular + regular rate Respiratory + respiratory effort normal Pre-Sedation Airway Assessment Smoking Status: Never smoker Hx Sleep Apnea: No Hx Difficult Intubation: No Short, Thick Neck: No Thyromental Distance: > or= 3.5 Finger Breadths Oral Cavity: + Dentures Mallampati Class: II ASA: ASA3 NPO Status Date of Last Intake of Fluids: 09/09/24 Time of Last Intake of Fluids: 21:00 Date of Last Intake of Solid Food: 09/09/24 Time of Last Intake of Solid Foods: 21:00 Procedure Planning Contraindications for Sedation: none Current Medications Reviewed: Yes Notes The planned sedation has been discussed with the patient. Informed Consent was obtained. I have identified the patient, determined the appropriateness of sedation and have assessed the patient immediately prior to the procedure. All medicine(s) and interventions are by my order.
--- NOTE | 2024-09-10 10:52 | Post Anesthesia Assessment ---
Date of Service September 10, 2024 Post Sedation Assessment Vital Signs Temp Pulse Pulse Resp BP BP Pulse Ox 09/10/24 10:02 86 16 137/83 98 09/10/24 08:44 115 H 09/10/24 07:26 98.1 F 90 18 120/78 97 09/10/24 04:00 98.2 F 87 16 121/78 94 09/09/24 23:27 90 09/09/24 22:59 97.9 F 91 H 18 125/84 96 09/09/24 21:34 97.3 F L 92 H 16 122/78 94 09/09/24 20:36 98.1 F 92 H 18 112/75 99 09/09/24 20:11 98.4 F 95 H 16 125/80 145/85 H 99 O2 Del Method 09/10/24 10:02 Room Air 09/10/24 08:44 09/10/24 07:26 Room Air 09/10/24 04:00 Room Air 09/09/24 23:27 09/09/24 22:59 Room Air 09/09/24 21:34 Room Air 09/09/24 20:36 Room Air 09/09/24 20:11 Recovery Score Activity: Moves 4 extremities Respiration: Deep Breath/Cough Circulation: +/-20% PreAnes Value Consciousness: Fully Awake Oxygen Saturation: O2 needed for >90% Discharge Sedation Level of Care: Fast Track Phase II Post Sedation Plan On clinical assessment, the patient appears to have tolerated the sedation without complications. Patient is recovering as anticipated. Patient will continue to be monitored by nursing and may be discharged when sedation discharge criteria are met per below protocol. Upon Completions of procedure up to 15 minutes continue every 5 minute vital signs and the P.A.R. score; then discharge to a Phase I or Fast Track to Phase II per the following guidelines: * Discharge Patient to appropriate Phase II area if PAR is 8 or greater or return to pre- procedure baseline. The post - procedure orders will be as directed. * If PAR score is less than 8 or not return to pre-procedure baseline then patient will follow Phase I monitoring till PAR is reached for Phase II. The Phase I may be done in procedure room or may call to secure a Phase I area. * If naloxone or flumazenil are used for reversal, hold in Phase I for continued monitoring from when last reversal dose was given for a minimum of 60 minutes or longer pending the nurse and/or physician discretion of patient condition before discharge to Phase II. Please call the Sedation Physician to re-evaluate and complete post-note for discharge to Phase II area. Do NOT discharge from procedure sedation or Phase 1 until post- sedation evaluation note is complete by procedure /sedation MD Sedation Discharge Instructions to be given to the patient at discharge to home.
--- NOTE | 2024-09-10 11:01 | Cardiac Catheterization ---
[facility] Data: Cipher Expert Cardiac Status Clinical evaluation leading to the procedure CAD Presenation: Non STEMI Anginal Classification: CCS IV Diagnostic Physicians Name: Bogdan Bloom MD Closure Device Recommendations: Medical Therapy and/or Counseling Cardiac Cath Procedure Full Procedure Date September 10, 2024 Pre-Procedure Diagnosis Pre-Procedure Diagnosis: Non STEMI and Cardiomyopathy AUC Score AUC Score: 7 Post-Procedure Diagnosis Post-Procedure Diagnosis: Normal Coronary Arteries and Normal Intracardiac Pressures Procedure(s) Performed Procedure(s) Performed: Coronary Angiography and Left Heart Cath Driver Medic Bogdan Bloom MD Intermission Coordinator(s) aT Estimated Blood Loss Estimated Blood Loss: 5 Medication(s) Medication(s): Fentanyl, Lidocaine 1%, Nicardipine, Nitroglycerin and Versed Summary of Findings Indication: NSTEMI, apical wall motion abnormality on echo Access: 6 Fr slender right radial artery Catheters: Hercules Findings: LM -normal caliber, no significant disease LAD -medium caliber, no significant disease, distal vessel wraps around apex. Small D1, D2 without disease. Circumflex -medium caliber, no significant disease. Small OM1 with 20% ostial stenosis. Medium OM 3 without significant disease. RCA -dominant, medium caliber, no significant disease. PDA with luminal irregularities. LVEDP -13 Arterial Closure: TR band Summary: 1. Angiographically normal coronary arteries 2. Normal intracardiac filling pressure Recommendations: No acute or high risk CAD to explain patient's recent symptoms. Echo findings suggestive of Takotsubo's cardiomyopathy. Continue GDMT, ASCVD risk factor modification per Dr. Luna. Hemodynamics Rest Ao:: 105/58/78 Final Ao: 114/60/75 LV: 107/13 Recommendations Recommendations: Medical Therapy and/or Counseling Radiation Exposure (mGy) 431 Contrast (mls) 35 Anesthesia Moderate [id number] Procedural Complication(s) None Disposition Cipher Expert Holding/Recovery I attest to the content of the Intraoperative Record and any orders documented therein. Any exceptions are noted below. [facility] Card Cath Procedure Codes Cardiac Catheterization Procedure 1: Cardiovascular Cath Procedures: 00335 Coronaries and LHC (+/-LV) Moderate Sedation Procedure 1: Sedation/Anesthesia: 85517 Mod Sedation by the same physician;Init15 Min Child Age 5 & Up PG Care Time/CCT Total # of Minutes Spent Total Time Spent with Patient: Total time spent is greater than 50% in coordination of care (as documented) at patient's floor/unit and/or counseling patient:
--- NOTE | 2024-09-10 11:53 | Communication Note ---
Date of Service: September 10, 2024 Patient referred and underwent diagnostic coronary angiography demonstrating normal coronaries, normal intravascular filling pressures Patient tolerated procedure well Recommendations: Continue aspirin 81 mg/day, increase metoprolol succinate to 25 mg twice per day. Telemetry overnight Treat underlying psychiatric concerns Repeat echocardiogram 1 month
--- NOTE | 2024-09-10 15:03 | Psychiatric Progress Note ---
Date of Service September 10, 2024 Impression / Recommendations Impression 59-year-old female history of recurrent UTIs, hypertension, hyperlipidemia, asthma, diabetes type 2 on insulin, hypothyroidism, IBS, chronic anemia who presents on 09/07/2024 with psychogenic polydipsia, hyponatremia with a corrected sodium of 127 in the context of excess water consumption and poor adherence to insulin. Sodium level corrected and within expected limits now. Past hospitalization in April 2024 for hyponatremia and UTI. Psychiatry consulted for evaluation. Concern for active lilly and psychosis. Differential includes SAD bipolar type vs Bipolar 1 Lilly with psychosis vs unspecified psychosis. Likely psychogenic polydipsia from active mood and psychotic condition and expecting resolution once underling condition improves. Patient presents poor insight and judgement and unable to engage in rational conversation regarding her care. Concern for her physical safety and worsening health condition if discharged in her current state. Would benefit from inpatient psychiatry admission under involuntary commitment. 302 commitment accepted. Patient presented recent chest pain and undergoing w/u. EKG showing NSTEMI and prolonged QTc. Limit antipsychotics at this time and utilize benzodiazepines for agitation and anxiety management. Overall, I spent a total of 40 minutes with this case including review of chart records, nursing report, review of lab work, direct evaluation of the patient at bedside, counseling the patient, discussion with the psychiatric liaison during clinical rounds, and documentation in the electronic health record. (1) Lilly: (2) Psychotic disorder: (3) Psychogenic polydipsia: (4) Insulin-requiring or dependent type II diabetes mellitus: Plan -302 involuntary commitment for inpatient behavioral health once medically cleared -[facility] -Fluid restriction -Lorazepam 2mg HS scheduled -Lorazepam 2mg PO/IM Q6hr PRN for agitation, anxiety Interval History Identifying Information 59-year-old female history of recurrent UTIs, hypertension, hyperlipidemia, asthma, diabetes type 2 on insulin, hypothyroidism, IBS, chronic anemia who presents on 09/07/2024 with psychogenic polydipsia, hyponatremia with a corrected sodium of 127 in the context of excess water consumption and poor adherence to insulin. Sodium level corrected and within expected limits now. Past hospitalization in April 2024 for hyponatremia and UTI. Psychiatry consulted for evaluation. Chief Complaint "Apartment is secure" Subjective Subjective Patient was seen & assessed and interval progress reviewed with treatment team nursing and social work Upon interview she immediately tells me that her apartment is secure and that she lives in a 2 bedroom apartment. She starts to ramble and says that I am a good doctor. Reports coming to [employer] for a [place] [employer] game. When she was told that there was no game this past weekend she says that she came here to see the [facility]. She reports she got in trouble for campaigning for [employer] as the emmie she was with did not like that and was a racist but she is not a racist. Reports having a heart attack and stroke when the police initially came. When asked about past mental health conditions she minimally denies having schizophrenia and bipolar and says that she is depressed. She denies suicidal ideation and reports feeling safe. She then talks in a whisper tone and says that the nurses are doing things behind her back. Talks about her not minding conflict and that Latinos don't like conflict. She reports past treatment with Pristiq 100 mg, risperidone, clonazepam, Wellbutrin 150 mg. Reports past psychiatric follow-up at [facility] in [place]. She provides permission for us to contact her brother-Patrice Virgen [phone] Procedures Performed Operation Date: 09/10/24 10:00 Actual Procedures p Cineradiography w/Routine Exam - Bogdan Bloom MD p Cath, Left with Cors and Vent - Bogdan Bloom MD Physical Exam Mental Examination Appearance: Disheveled Eye Contact: Prolonged Contact Motor Behavior: Restless Speech: Excessive, Tangential and Pressured Mood: Irritable and Expansive Affect: Congruent Thought Process: Disorganized and Tangential Thought Content: Preoccupation (paranoia, delusions) Hallucinations: None Insight: Poor Judgement: Poor Vital Signs (Past 24 Hours) Last Vital Signs Temp 36.8 C 09/10/24 13:11 Pulse 94 H 09/10/24 13:11 Resp 18 09/10/24 13:11 BP 115/71 09/10/24 13:11 Pulse Ox 95 09/10/24 13:11 O2 Del Method Room Air 09/10/24 13:11 Results & Data ([facility]) Laboratory Results Laboratory Results - last 24 hr 09/09/24 09/09/24 09/09/24 16:40 21:28 21:59 WBC RBC Hgb Hct MCV MCH MCHC RDW Std Deviation RDW Coeff of Tye Plt Count MPV Immature Gran % (Auto) Neut % (Auto) Lymph % (Auto) Republic % (Auto) Eos % (Auto) Baso % (Auto) Neut # (Auto) Lymph # (Auto) Republic # (Auto) Eos # (Auto) Baso # (Auto) Immature Gran # (Auto) PT INR APTT 26 PTT Ratio 1.0 Heparin Anti-Xa, Unfract Sodium Potassium Chloride Carbon Dioxide Anion Gap BUN Creatinine Est Cr Clr Drug Dosing eGFR BUN/Creatinine Ratio Glucose POC Glucose 240 H 108 H Estimat Average Glucose Hemoglobin A1c Calcium Troponin I High Sens 138.3 H* Triglycerides Cholesterol LDL Cholesterol, Calc VLDL Cholesterol, Calc HDL Cholesterol Cholesterol/HDL Ratio SARS-CoV-2, RNA, NAAT 09/09/24 09/09/24 09/10/24 23:57 Unknown 05:55 WBC 12.48 H RBC 3.98 L Hgb 11.8 L Hct 34.7 L MCV 87.2 MCH 29.6 MCHC 34.0 RDW Std Deviation 42.6 RDW Coeff of Tye 13.5 Plt Count 288 MPV 10.4 Immature Gran % (Auto) 0.5 Neut % (Auto) 55.9 Lymph % (Auto) 31.0 Republic % (Auto) 9.9 Eos % (Auto) 2.1 Baso % (Auto) 0.6 Neut # (Auto) 6.98 H Lymph # (Auto) 3.87 H Republic # (Auto) 1.24 H Eos # (Auto) 0.26 Baso # (Auto) 0.07 Immature Gran # (Auto) 0.06 PT 11.0 INR 1.0 APTT 26 PTT Ratio 1.0 Heparin Anti-Xa, Unfract < 0.10 L Sodium Potassium Chloride Carbon Dioxide Anion Gap BUN Creatinine Est Cr Clr Drug Dosing eGFR BUN/Creatinine Ratio Glucose POC Glucose 170 H Estimat Average Glucose Hemoglobin A1c Calcium Troponin I High Sens Triglycerides Cholesterol LDL Cholesterol, Calc VLDL Cholesterol, Calc HDL Cholesterol Cholesterol/HDL Ratio SARS-CoV-2, RNA, NAAT NEGATIVE 09/10/24 09/10/24 06:28 11:22 WBC 9.59 RBC 4.10 L Hgb 12.0 Hct 36.2 L MCV 88.3 MCH 29.3 MCHC 33.1 RDW Std Deviation 43.4 RDW Coeff of Tye 13.5 Plt Count 265 MPV 10.3 Immature Gran % (Auto) 0.5 Neut % (Auto) 48.3 Lymph % (Auto) 36.3 Republic % (Auto) 10.1 Eos % (Auto) 4.1 Baso % (Auto) 0.7 Neut # (Auto) 4.63 Lymph # (Auto) 3.48 H Republic # (Auto) 0.97 H Eos # (Auto) 0.39 Baso # (Auto) 0.07 Immature Gran # (Auto) 0.05 PT INR APTT PTT Ratio Heparin Anti-Xa, Unfract 0.41 Sodium 138 Potassium 3.9 Chloride 104 Carbon Dioxide 26 Anion Gap 8 BUN 17 Creatinine 0.73 Est Cr Clr Drug Dosing 80.2 eGFR 94.68 BUN/Creatinine Ratio 23.3 H Glucose 172 H POC Glucose 119 H Estimat Average Glucose 166 Hemoglobin A1c 7.4 H Calcium 8.9 Troponin I High Sens 67.8 H* D Triglycerides 115 Cholesterol 138 LDL Cholesterol, Calc 66 VLDL Cholesterol, Calc 23 HDL Cholesterol 49 Cholesterol/HDL Ratio 2.8 SARS-CoV-2, RNA, NAAT Current Inpatient Medications Current Inpatient Medications: Current Inpatient Medications Acetaminophen (Acetaminophen 500 Mg Tab) 500 mg PO Q6H PRN PRN Reason: fever/pain Stop: 10/07/24 04:30 Last Admin: 09/07/24 20:43 Dose: 500 mg Aspirin (Aspirin 81 Mg Ectab) 81 mg PO DAILY TONEY Stop: 10/09/24 21:59 Last Admin: 09/09/24 22:27 Dose: 81 mg Atorvastatin Calcium (Atorvastatin 40 Mg Tab) 40 mg PO DAILY TONEY Stop: 10/07/24 08:59 Last Admin: 09/10/24 09:18 Dose: 40 mg Dextrose (Dextrose 50% 50 Ml Syringe) 25 - 50 ml IV UD PRN; Protocol PRN Reason: Hypoglycemia Protocol Stop: 10/07/24 03:30 Glucagon (Glucagon For Inj 1 Mg Vial) 1 mg SQ UD PRN; Protocol PRN Reason: Hypoglycemia Protocol Stop: 10/07/24 03:30 Glucose (Glucose 40% Gel 15 Gm Tube) 15 - 30 gm PO UD PRN; Protocol PRN Reason: Hypoglycemia Protocol Stop: 10/07/24 03:30 Glucose (Glucose 10 Tab/Tube) 4 - 8 tab PO UD PRN; Protocol PRN Reason: Hypoglycemia Treatment Stop: 10/07/24 03:30 Haloperidol (Haloperidol 5 Mg Tab) 5 mg PO Q6H PRN PRN Reason: Anxiety/Agitation Stop: 10/09/24 14:59 Haloperidol Lactate (Haloperidol Lactate 5 Mg/Ml 1 Ml Vial) 5 mg IM Q6H PRN PRN Reason: Agitation Stop: 10/09/24 14:52 Promethazine HCl (Phenergan) 6.25 mg in 50.25 mls @ 201 mls/hr IV Q6H PRN PRN Reason: Nausea And Vomiting Stop: 10/07/24 04:30 Insulin Aspart (Insulin Aspart Per Unit Charge) 0 units SC ACHS TONEY Stop: 10/10/24 11:29 Last Admin: 09/10/24 12:17 Dose: 2 units Insulin Glargine (Lantus Per Unit Charge) 5 units SQ DAILY TONEY Stop: 10/10/24 08:59 Last Admin: 09/10/24 08:13 Dose: 5 units Levothyroxine Sodium (Levothyroxine Sodium 25 Mcg Tablet) 25 mcg PO DAILYBB [facility] Stop: 10/07/24 06:29 Last Admin: 09/10/24 09:18 Dose: 25 mcg Lorazepam (Lorazepam 2 Mg/1 Ml Vial) 2 mg IM Q6H PRN PRN Reason: Agitation Stop: 10/09/24 14:59 Lorazepam (Lorazepam 1 Mg Tab) 2 mg PO Q6H PRN PRN Reason: Anxiety/Agitation Stop: 10/09/24 14:52 Last Admin: 09/09/24 18:47 Dose: 1 mg Metoprolol Succinate (Metoprolol Succ 25mg Ext Rel Tab) 25 mg PO BID [facility] Stop: 10/10/24 20:59 Miscellaneous (Carbohydrates For Hypoglycemia ) 15 - 30 gm PO UD PRN PRN Reason: Hypoglycemia Protocol Stop: 10/07/24 03:30 Morphine Sulfate (Morphine Sulfate 4 Mg/Ml 1 Ml Carp\\Vial) 4 mg IV Q4H PRN PRN Reason: Pain Stop: 09/23/24 23:03 Nitroglycerin (Nitroglycerin Sl 0.4 Mg/Tab Tab) 0.4 mg SL Q5M PRN PRN Reason: Chest Pain Stop: 10/09/24 21:54 Last Admin: 09/09/24 22:10 Dose: 0.4 mg Oxybutynin Chloride (Oxybutynin Chloride Xl 5 Mg Tabcr) 5 mg PO DAILY TONEY Stop: 10/07/24 08:59 Last Admin: 09/10/24 08:11 Dose: Not Given Oxycodone HCl (Oxycodone Hcl Ir 5 Mg Tab (Immediate Release)) 5 mg PO Q4H PRN PRN Reason: Pain Stop: 09/23/24 21:05 Pantoprazole Sodium (Pantoprazole 40 Mg Tab) 40 mg PO DAILY TONEY Stop: 10/07/24 08:59 Last Admin: 09/10/24 09:18 Dose: 40 mg Pregabalin (Pregabalin 75 Mg Cap) 75 mg PO BID TONEY Stop: 10/07/24 08:59 Last Admin: 09/10/24 08:10 Dose: 75 mg
--- NOTE | 2024-09-10 15:37 | Hospitalist Progress Note ---
Date of Service September 10, 2024 Assessment & Plan (1) Bipolar disorder with psychotic features: (2) Non-ST elevated myocardial infarction (non-STEMI): (3) Cardiomyopathy, dilated, nonischemic: (4) Psychogenic polydipsia: (5) Schizoaffective disorder: (6) Hypo-osmolar hyponatremia: (7) Insulin-requiring or dependent type II diabetes mellitus: (8) Hypothyroidism: (9) Irritable bladder: Plan Events of last night reviewed, communication with cardiology team, cardiac cath this morning. No significant coronary disease no interventions required Medical management of cardiomyopathy Reviewed psychiatry recommendations Continue postcardiac cath care Continue telemetry monitoring overnight Continue to monitor glucose and treat with insulin Follow EKG for QTc duration for management of psychiatric meds Anticipate if no significant arrhythmias or other acute issues I will plan for [facility] transfer tomorrow Admission and Anticipated Discharge Date Admission Date: September 07, 2024 Subjective Patient seen postcardiac cath. Chest pain resolved. Physical Exam Physical Exam: Constitutional: Alert, sitting up eating lunch HEENT: Mucous membranes moist. Lungs: Clear to auscultation, decreased, no wheezes rales or rhonchi CV: S1-S2, regular Abdomen: Soft, nontender, nondistended Extremities: No significant edema Neuro: No focal deficits Psych: Cooperative, depressed, not willing to talk a whole lot, did agree to exam Results & Data Results & Data Vital Signs (Past 12 Hours) Vital Signs Temp Pulse Pulse Resp BP BP Pulse Ox 09/10/24 15:04 36.6 C 98 H 17 126/75 99 09/10/24 13:11 36.8 C 94 H 18 115/71 95 09/10/24 12:45 36.5 C 81 17 109/70 98 09/10/24 12:15 36.4 C L 78 17 113/70 98 09/10/24 12:00 36.4 C L 82 18 112/61 99 09/10/24 11:45 36.3 C L 80 18 105/70 99 09/10/24 11:26 36.5 C 79 16 115/69 98 09/10/24 10:58 79 14 138/90 95 09/10/24 10:02 86 16 137/83 98 09/10/24 08:44 115 H 09/10/24 07:26 36.7 C 90 18 120/78 97 09/10/24 04:00 36.8 C 87 16 121/78 94 O2 Del Method 09/10/24 15:04 Room Air 09/10/24 13:11 Room Air 09/10/24 12:45 Room Air 09/10/24 12:15 Room Air 09/10/24 12:00 Room Air 09/10/24 11:45 Room Air 09/10/24 11:26 Room Air 09/10/24 10:58 Room Air 09/10/24 10:02 Room Air 09/10/24 08:44 09/10/24 07:26 Room Air 09/10/24 04:00 Room Air Diagnostic Findings [facility] Cardiac cath report reviewed, no significant coronary artery disease, no event intervention Echocardiogram reviewed, ejection fraction 40 to 45%, severe hypokinesis of the apical segments with some apical ballooning, refer to the full report for details Troponin peaked at 138.3, declining 67.8 Hemoglobin A1c 7.4% Sodium 138 Personally reviewed EKGs, sinus rhythm, anterior lateral ischemic changes
[2024-09-10] MEDS: HEPARIN (PORCINE) 1000 UNIT/ML 10 ML (CATH LAB USE ONLY) ONE (16:15)
[2024-09-10] MEDS: IODIXANOL (VISIPAQUE) 320 MG/ML 100ML IV ONE (16:15)
[2024-09-10] MEDS: ACETAMINOPHEN 325 MG TAB PO PRN (17:09)
--- NOTE | 2024-09-10 17:35 | Hospitalist Progress Note ---
Date of Service September 09, 2024 This is a late note for services provided on 09/09/2024. Patient initially was planning to be discharged however discharge was discontinued due to that patient started to have additional symptoms. Assessment & Plan (1) Bipolar disorder with psychotic features: (2) Non-ST elevated myocardial infarction (non-STEMI): (3) Cardiomyopathy, dilated, nonischemic: (4) Psychogenic polydipsia: (5) Schizoaffective disorder: (6) Hypo-osmolar hyponatremia: (7) Insulin-requiring or dependent type II diabetes mellitus: (8) Hypothyroidism: (9) Irritable bladder: Plan Continue current medical management Await psychiatry consultation, anticipate transfer to [facility] for admission possibly under 302. Encouraged patient to go voluntarily Update: Discharge was discontinued due to the fact the patient started with substernal chest pain late in the evening of 09/09/2024. Troponins elevated. Was treated for non-STEMI. 52 minutes spent in coordinating care with specialist throughout the day, review of records. Admission and Anticipated Discharge Date Admission Date: September 07, 2024 Subjective Patient seen early in the morning of September 09, was very suspicious of those around her, somewhat paranoid, at times speaking in whispers to no one could overhear her. Denied any chest pain denied any shortness of breath. Very poor insight into her water intake and how her behaviors impacted her medical status. Physical Exam Physical Exam: Constitutional: Alert HEENT: Mucous membranes moist. Lungs: Clear to auscultation, decreased, no wheezes rales or rhonchi CV: S1-S2, regular Abdomen: Soft, nontender, nondistended Extremities: No significant edema Neuro: No focal deficits Psych: Cooperative with the one-to-one observer, somewhat paranoid and suspicious, some delusions of grandeur, Results & Data Results & Data Vital Signs (Past 12 Hours) Vital Signs Temp Pulse Pulse Resp BP BP Pulse Ox 09/10/24 15:44 85 09/10/24 15:04 36.6 C 98 H 17 126/75 99 09/10/24 13:11 36.8 C 94 H 18 115/71 95 09/10/24 12:45 36.5 C 81 17 109/70 98 09/10/24 12:15 36.4 C L 78 17 113/70 98 09/10/24 12:00 36.4 C L 82 18 112/61 99 09/10/24 11:45 36.3 C L 80 18 105/70 99 09/10/24 11:26 36.5 C 79 16 115/69 98 09/10/24 10:58 79 14 138/90 95 09/10/24 10:02 86 16 137/83 98 09/10/24 08:44 115 H 09/10/24 07:26 36.7 C 90 18 120/78 97 O2 Del Method 09/10/24 15:44 09/10/24 15:04 Room Air 09/10/24 13:11 Room Air 09/10/24 12:45 Room Air 09/10/24 12:15 Room Air 09/10/24 12:00 Room Air 09/10/24 11:45 Room Air 09/10/24 11:26 Room Air 09/10/24 10:58 Room Air 09/10/24 10:02 Room Air 09/10/24 08:44 09/10/24 07:26 Room Air Diagnostic Findings Sodium 138
[2024-09-10] MEDS: LORazepam 1 MG TAB PO SCH (20:22)
[2024-09-10] MEDS: PROMETHAZINE 6.25 MG/50.25 ML BAG IV PRN (22:35)
[2024-09-11 06:29] LABS: Hematocrit (blood only) 35.5 % (37.0-47.0); Hemoglobin 11.9 g/dl (12.0-16.0); Mean Corpuscular Hemoglobin 29.5 pg (25.0-34.0); Mean Corpuscular Hgb Conc 33.5 g/dL (32.0-36.0); Mean Corpuscular Volume 88.1 fL (80.0-100.0); Mean Platelet Volume 10.4 fL (9.4-12.4); Platelet Count 288 K/uL (130-400); RDW Coefficient of Variation 13.3 % (11.5-14.5); RDW Standard Deviation 43.2 fL (36.4-46.3); Red Blood Count 4.03 M/uL (4.20-5.40); White Blood Count 8.21 K/ul (4.8-10.8)
[2024-09-11 06:52] LABS: Magnesium 1.8 mg/dl (1.7-2.4); Potassium 3.9 mmol/L (3.5-5.1)
--- NOTE | 2024-09-11 10:00 | Discharge Summary ---
Discharge Summary Date of Service September 11, 2024 Principal Dx & Hospital Course #1 = Principal Diagnosis (1) Bipolar disorder with psychotic features: (2) Non-ST elevated myocardial infarction (non-STEMI): (3) Cardiomyopathy, dilated, nonischemic: (4) Psychogenic polydipsia: (5) Schizoaffective disorder: (6) Hypo-osmolar hyponatremia: (7) Insulin-requiring or dependent type II diabetes mellitus: (8) Hypothyroidism: (9) Irritable bladder: Plan Patient presented to the emergency room with initial complaints of urinary discomfort. In the emergency room was noted to be tachycardic and significantly hyponatremic. She was admitted to the hospital. Her history revealed concern for psychogenic polydipsia. Laboratory testing confirmed a hypoosmolar hyponatremia. She was placed on strict fluid restriction. With fluid restriction her sodium normalized. There is no significant issues with cardiac arrhythmia on telemetry. She was seen by nephrology who agreed with fluid restriction and management of her diabetes. She is continued to be monitored in the hospital overnight. She continued to do well with the fluid restriction without someone watching her. On the morning of discharge her vital signs are stable. Her sodium was 139. It was stressed to her multiple times the need for fluid restriction and management of her diabetes. She expressed understanding. She will be discharged home to follow-up with her outpatient providers. As to the time of discharge, patient reports that her car has been impounded and she may not have any rod. Patient will be referred to social sciences instructor to help coordinate discharge to the impound yard. Unfortunately, case management, nursing staff was unable to confirm with the patient someone to pick her up. The patient spent much of the day in the hospital. During this time patient became much more persistent on drinking large amounts of water. She rapidly exceeded her fluid restricted amount. Nursing staff noted that when she was restricted from the faucet she took water from the toilet to drink. She drank so much water that she ended up having emesis. I evaluated the patient and decided to cancel the discharge and consult psychiatry. Patient was placed on one-to-one observation to make sure that she did not exceed her fluid restriction. More extensive review of outside EMR revealed that she does have a history of schizoaffective disorder and bipolar disorder. Notes revealed that she had numerous cancellations and missed office visits with psychiatry. Also appears is that she was not taking medications for her mental health disorder as what had been on med list from previous visits. She was completely restricted from warm water or fluids for the next 6 hours after this behavior was noted. She otherwise had an uneventful night. On the morning of anticipated discharge her sodium was 138. Her other electrolytes within normal range. Her creatinine was 0.65. Psychiatry evaluated the patient they felt that the patient had poor insight into her condition and was in early phases of acute manic episode with psychosis. They pursued a 302 involuntary commitment. Patient will be discharged to behavioral health unit when this is completed. Psychiatry recommended use of Haldol and/or Ativan if the patient become more agitated or anxious. Recommend continuing her other medications for her diabetes, hypothyroidism and dyslipidemia and hypertension. On the evening that patient was anticipating going to behavioral health unit, she started to complain of substernal chest pain. EKG question some ischemic changes and troponins were elevated. She was treated for non-STEMI with IV heparin. Cardiology consultation was obtained. Her troponins continue to trend upward in the following days patient underwent cardiac catheterization. She also had an echocardiogram performed. Cardiac catheterization did not show any of the occlusive coronary artery disease but did show some ballooning of the apex. It was recommended medical management with adjustment of her beta-cheri to metoprolol and daily aspirin use. Her postcardiac cath course was uneventful. There was no significant arrhythmias on monitoring. Her radial c ath site was stable. She was now much more significantly depressed on the day of discharge. Anticipate patient will go to behavioral health for ongoing psychiatric treatments with outpatient cardiology and PCP follow-up. Notes For Next Care Provider Medication Changes From Visit Atenolol changed for metoprolol Aspirin added Admission HPI Per Admitting Provider History obtained from patient and records. Medical history significant for hypertension, hyperlipidemia, bronchial asthma, DM 2 insulin requiring, hypothyroidism, chronic hyponatremia, chronic anemia (baseline hemoglobin of 11), IBS, recurrent UTIs on chronic methenamine suppress ion Rx, chronic cystitis, history stress/urge urinary incontinence, neurogenic bladder as per records, schizoaffective disorder as per records, anxiety/mood disorder, chronic pain, chronic fatigue syndrome, history amphetamine abuse as per records, past tobacco abuse. Patient is a resident of [place], [place] who drove to town yesterday looking for shopping places. Recent overnight confinement at [place], [place] last April 2024 for UTI symptoms and hyponatremia. Serum sodium 127 at time of admission. Hyponatremia attributed by patient to stress and dehydration as per d ocumentation. Contradictory prescriptions during confinement as per discharge note. As per patient, she was pulled over the road by police because there were " a lot of accidents yesterday." She then told water resources technical officer that she has had 2 days history of achy abdominal and flank pain and hematuria symptoms. No fever, no chills, no chest pain, no SOB. Admits to drinking at least 2 L of water every day. Denies unusual stress. She requested to be brought to a nearby hospital to get checked out while her vehicle was impounded. Highest heart rate of 150 documented at the ER. Medical History as above Surgical History : Dental surgery, silicone implant, cholecystectomy, urologic procedures Family History : Heart disease, DM, mental illness Personal/Social history : Past tobacco abuse, no EtOH intake Admission Exam Per Admitting Provider See H&P Discharge Exam Constitutional: Alert, no acute distress HEENT: Mucous membranes moist. Lungs: Clear to auscultation, decreased, no wheezes rales or rhonchi CV: S1-S2, regular Abdomen: Soft, nontender, nondistended Extremities: No significant edema, radial cath site stable Neuro: No focal deficits Psych: Today very depressed, withdrawn, does not make eye contact, 1-2 word statements in random order without any significant meaning. Updated Medication List Medication Instructions Recorded Confirmed Type atorvastatin 40 mg tablet (Lipitor) 40 mg PO DAILY 09/07/24 09/07/24 History dulaglutide 4.5 mg/0.5 mL 4.5 mg subcut WK 09/07/24 09/07/24 History subcutaneous pen injector (Trulicity) insulin aspart U-100 100 unit/mL subcut 09/07/24 History (3 mL) subcutaneous pen (Novolog FlexPen U-100 Insulin aspart) insulin glargine 100 unit/mL (3 16 unit subcut 09/07/24 History mL) subcutaneous pen (Basaglar KwikPen U-100 Insulin) levothyroxine 25 mcg tablet 25 mcg PO DAILY 09/07/24 09/07/24 History metformin 1,000 mg tablet 1,000 mg PO BID 09/07/24 09/07/24 History methenamine hippurate 1 gram tablet g 09/07/24 History montelukast 10 mg tablet 10 mg PO 09/07/24 History pantoprazole 40 mg tablet,delayed 40 mg PO DAILY 09/07/24 09/07/24 History release pregabalin 75 mg capsule 75 mg PO BID 09/07/24 09/07/24 History trospium 20 mg tablet 20 mg PO BID 09/07/24 09/07/24 History aspirin 81 mg tablet,delayed 81 mg PO DAILY #1 tab 09/11/24 Rx release insulin glargine 100 unit/mL 5 unit (0.05 mL) subcut DAILY #10 09/11/24 Rx subcutaneous solution (Lantus mL U-100 Insulin) lorazepam 1 mg tablet 2 mg (2 x 1 mg) PO HS #1 tab 09/11/24 Rx lorazepam 1 mg tablet 2 mg (2 x 1 mg) PO Q6H PRN anxiety 09/11/24 Rx #1 tab lorazepam 2 mg/mL injection 2 mg IM Q6H PRN anxiety #1 mL 09/11/24 Rx solution metoprolol succinate 25 mg 25 mg PO BID 30 days #60 tabs 09/11/24 Rx tablet,extended release 24 hr Hospital Stay Data Consultations 09/07/24 03:07 ED Decision to Admit Stat 09/07/24 05:39 Consult Nephrology Routine 09/08/24 16:41 Consult Psychiatry Routine 09/09/24 22:45 Consult Cardiology Routine Procedures Performed Operation Date: 09/10/24 10:00 Actual Procedures p Cineradiography w/Routine Exam - Bogdan Bloom MD p Cath, Left with Cors and Vent - Bogdan Bloom MD Diagnostic Imagining Performed 09/06/24 23:13 CT abd pelvis IV con only Stat 09/10/24 09:32 CL Cath Imgs for PACS use only Routine Cardiac catheterization, no occlusive disease, ejection fraction 4045%, refer you for report for details Echocardiogram showed ejection fraction 4045%, severe hypokinesis of the apical segments with some apical ballooning consistent with cardiomyopathy. I refer you to the full report for details EKG reviewed by myself on the day of discharge sinus rhythm with ST-T wave abnormalities anterior laterally and inferiorly. QTc 528 ms Hemoglobin 11.9, other indices within normal range Sodium 136 Creatinine 0.63 Glucose 202 Pending Results Patient Have Any Pending Studies at Discharge: No Discharge Instructions Given to Patient (Per Discharging Provider) It is critical that you adhere to the fluid restriction. Continue to monitor your glucose and discuss further treatment options with your PCP Follow-up with cardiology after your discharge from [facility] Total Time Total Time Spent Total Time Spent (In Minutes): 35
--- NOTE | 2024-09-11 12:12 | Cardiology Progress Note ---
Date of Service September 11, 2024 Assessment & Plan (1) Elevated troponin: (2) Precordial chest pain: (3) Abnormal echocardiogram: (4) Schizoaffective disorder: (5) Insulin-requiring or dependent type II diabetes mellitus: (6) Apical ballooning syndrome: (7) Cardiomyopathy, dilated, nonischemic: Plan Patient is a 59-year-old female admitted with hypo osmolar hyponatremia, acute lilly in association with chronic schizophrenic disorder. Marked emotional stressors in hospital Chest pain last evening throughout the night with associated EKG changes and elevation in troponin Echocardiogram today consistent with apical ballooning cardiomyopathy versus ischemic wall motion abnormalities with focal apical expansion and hypokinesis with hyperdynamic basilar sections. Reduced ejection fraction 40% Discussed above findings in detail with patient who appears to understand well Recommended proceeding urgently to diagnostic cardiac catheterization given ongoing symptoms of chest pain Patient agreeable Planned procedure this morning 09/11/2024 Patient underwent cardiac catheterization on 09/10/2024 with normal coronary arteries. Echocardiogram consistent with stress mediated apical ballooning cardiomyopathy. Expect improvement with beta-cheri therapy and would continue metoprolol succinate 25 mg twice per day. No signs or symptoms of congestive heart for Needs echocardiogram 1 month Follow-up cardiology after echocardiogram Okay to proceed with inpatient psychiatric management Admission and Anticipated Discharge Date Admission Date: September 07, 2024 Subjective Patient seen and examined, chart, telemetry reviewed. No further chest pain Feels more fatigued when up but no signs of fluid retention or edema Right radial access site healing well Results of testing reviewed in detail with patient Review of Systems Review of Systems: All systems reviewed & are unremarkable except as noted in Subjective Physical Exam Constitutional: no acute distress Eyes: PERRL, conjunctivae normal, anicteric sclerae ENMT: external ear and nose normal, oropharynx normal Neck: trachea midline, no thyromegaly Respiratory: normal respiratory effort, lungs clear to auscultation Cardiovascular: Rate/Rhythm: regular rate and regular rhythm Heart Sounds: normal S1 and normal S2; no murmur and no cardiac rub Vessels: femoral pulses present and radial pulses present (Right radial access site healing well); no JVD, no carotid bruit and no femoral bruit Gastrointestinal (Abdomen): normal bowel sounds, soft, nontender, no hepatospl enomegaly Musculoskeletal: no cyanosis or clubbing, extremities motor strength 5/5 Results & Data Vital Signs (Past 12 Hours) Vital Signs Temp Pulse Pulse Resp BP Pulse Ox O2 Del Method 09/11/24 11:03 36.6 C 78 20 120/74 100 Room Air 09/11/24 09:00 Room Air 09/11/24 06:55 36.6 C 90 19 133/81 99 Room Air 09/11/24 06:00 72 09/11/24 04:43 36.8 C 84 16 118/65 97 Room Air, Nasal Cannula Laboratory Results Laboratory Results - last 24 hr 09/10/24 09/10/24 09/11/24 15:52 20:06 05:51 WBC 8.21 RBC 4.03 L Hgb 11.9 L Hct 35.5 L MCV 88.1 MCH 29.5 MCHC 33.5 RDW Std Deviation 43.2 RDW Coeff of Tye 13.3 Plt Count 288 MPV 10.4 Sodium 136 Potassium 3.9 Chloride 103 Carbon Dioxide 25 Anion Gap 8 BUN 12 Creatinine 0.63 Est Cr Clr Drug Dosing 91.0 eGFR 102.13 BUN/Creatinine Ratio 19.0 Glucose 190 H POC Glucose 148 H 171 H Calcium 9.0 Magnesium 1.8 09/11/24 09/11/24 07:45 11:10 WBC RBC Hgb Hct MCV MCH MCHC RDW Std Deviation RDW Coeff of Tye Plt Count MPV Sodium Potassium Chloride Carbon Dioxide Anion Gap BUN Creatinine Est Cr Clr Drug Dosing eGFR BUN/Creatinine Ratio Glucose POC Glucose 202 H 219 H Calcium Magnesium
--- NOTE | 2024-09-11 15:11 | Psychiatric Progress Note ---
Date of Service September 11, 2024 Impression / Recommendations Impression 59-year-old female history of recurrent UTIs, hypertension, hyperlipidemia, asthma, diabetes type 2 on insulin, hypothyroidism, IBS, chronic anemia who presents on 09/07/2024 with psychogenic polydipsia, hyponatremia with a corrected sodium of 127 in the context of excess water consumption and poor adherence to insulin. Sodium level corrected and within expected limits now. Past hospitalization in April 2024 for hyponatremia and UTI. Psychiatry consulted for evaluation. Concern for active lilly and psychosis. Differential includes Bipolar 1 Lilly with psychosis vs SAD bipolar type vs unspecified psychosis. Likely psychogenic polydipsia from active mood and psychotic condition and expecting resolution once underling condition improves. Patient continues to present goal directed activity, pressured speech, dec need for sleep, paranoia. Demonstrates poor insight into condition, [facility]. Continues to have an increased thirst response. Concern for her physical safety and worsening health condition if discharged in her current state. Would benefit from inpatient psychiatry admission under involuntary commitment. Under 302 commitment. EKG continues to show prolonged QTc. Recommend to monitor and repeat EKG tomorrow.Limit antipsychotics at this time and utilize benzodiazepines for agitation and anxiety management. Overall, I spent a total of 50 minutes with this case including review of chart records, nursing report, review of lab work, direct evaluation of the patient at bedside, counseling the patient, discussion with the psychiatric liaison during clinical rounds, and documentation in the electronic health record. (1) Lilly: (2) Psychotic disorder: (3) Psychogenic polydipsia: (4) Insulin-requiring or dependent type II diabetes mellitus: Plan -302 involuntary commitment for inpatient behavioral health once medically cleared -[facility] -Fluid restriction -Lorazepam 2mg HS scheduled -Lorazepam 2mg PO/IM Q6hr PRN for agitation, anxiety Interval History Identifying Information 59-year-old female history of recurrent UTIs, hypertension, hyperlipidemia, asthma, diabetes type 2 on insulin, hypothyroidism, IBS, chronic anemia who presents on 09/07/2024 with psychogenic polydipsia, hyponatremia with a corrected sodium of 127 in the context of excess water consumption and poor adherence to insulin. Sodium level corrected and within expected limits now. Past hospitalization in April 2024 for hyponatremia and UTI. Psychiatry consulted for evaluation. Chief Complaint Lilly Subjective Subjective Chart review: EKG with QTc of 528 ms, normal rate Collateral from brother: half brother with same mother. Patient's mother had severe bipolar disorder. Patient has 6 siblings all with different fathers. She is the youngest sibling. Half sibling sister by overdose. Father killed himself while patient was baby. Past day hospitalization. Patient grew up in the foster care system. [facility] The patient reports sleeping well last night. Complements me as a doctor immediately. Says that her psychiatrist did the lead interview on [place]. Says that she only needs antidepressants. Says she came to [facility]. because she went the wrong way and was then arrested. Says that she went to [email or web address] to go shopping and that she wanted to go to [employer]. She is tangential and speaks of different topics. Reports being unemployed and currently on disability "temporarily". Making multiple plans. Nursing reports patient continues to keep asking for water. Procedures Performed Operation Date: 09/10/24 10:00 Actual Procedures p Cineradiography w/Routine Exam - Bogdan Bloom MD p Cath, Left with Cors and Vent - Bogdan Bloom MD Physical Exam Mental Examination Appearance: Disheveled Eye Contact: Prolonged Contact Motor Behavior: Restless Speech: Excessive, Tangential and Pressured Mood: Irritable and Expansive Affect: Congruent Thought Process: Disorganized and Tangential Thought Content: Preoccupation (paranoia, delusions) Hallucinations: None Insight: Poor Judgement: Poor Vital Signs (Past 24 Hours) Last Vital Signs Temp 36.7 C 09/11/24 15:10 Pulse 87 09/11/24 15:10 Resp 20 09/11/24 15:10 BP 128/79 09/11/24 15:10 Pulse Ox 97 09/11/24 15:10 O2 Del Method Room Air 09/11/24 15:10 Results & Data ([facility]) Laboratory Results Laboratory Results - last 24 hr 09/10/24 09/10/24 09/11/24 15:52 20:06 05:51 WBC 8.21 RBC 4.03 L Hgb 11.9 L Hct 35.5 L MCV 88.1 MCH 29.5 MCHC 33.5 RDW Std Deviation 43.2 RDW Coeff of Tye 13.3 Plt Count 288 MPV 10.4 Sodium 136 Potassium 3.9 Chloride 103 Carbon Dioxide 25 Anion Gap 8 BUN 12 Creatinine 0.63 Est Cr Clr Drug Dosing 91.0 eGFR 102.13 BUN/Creatinine Ratio 19.0 Glucose 190 H POC Glucose 148 H 171 H Calcium 9.0 Magnesium 1.8 09/11/24 09/11/24 07:45 11:10 WBC RBC Hgb Hct MCV MCH MCHC RDW Std Deviation RDW Coeff of Tye Plt Count MPV Sodium Potassium Chloride Carbon Dioxide Anion Gap BUN Creatinine Est Cr Clr Drug Dosing eGFR BUN/Creatinine Ratio Glucose POC Glucose 202 H 219 H Calcium Magnesium Current Inpatient Medications Current Inpatient Medications: Current Inpatient Medications Acetaminophen (Acetaminophen 325 Mg Tab) 650 mg PO Q4H PRN PRN Reason: fever/pain Stop: 10/07/24 04:30 Last Admin: 09/11/24 06:23 Dose: 650 mg Aspirin (Aspirin 81 Mg Ectab) 81 mg PO DAILY TONEY Stop: 10/09/24 21:59 Last Admin: 09/11/24 08:31 Dose: 81 mg Atorvastatin Calcium (Atorvastatin 40 Mg Tab) 40 mg PO DAILY TONEY Stop: 10/07/24 08:59 Last Admin: 09/11/24 08:31 Dose: 40 mg Dextrose (Dextrose 50% 50 Ml Syringe) 25 - 50 ml IV UD PRN; Protocol PRN Reason: Hypoglycemia Protocol Stop: 10/07/24 03:30 Glucagon (Glucagon For Inj 1 Mg Vial) 1 mg SQ UD PRN; Protocol PRN Reason: Hypoglycemia Protocol Stop: 10/07/24 03:30 Glucose (Glucose 40% Gel 15 Gm Tube) 15 - 30 gm PO UD PRN; Protocol PRN Reason: Hypoglycemia Protocol Stop: 10/07/24 03:30 Glucose (Glucose 10 Tab/Tube) 4 - 8 tab PO UD PRN; Protocol PRN Reason: Hypoglycemia Treatment Stop: 10/07/24 03:30 Promethazine HCl (Phenergan) 6.25 mg in 50.25 mls @ 201 mls/hr IV Q6H PRN PRN Reason: Nausea And Vomiting Stop: 10/07/24 04:30 Insulin Aspart (Insulin Aspart Per Unit Charge) 0 units SC ACHS TONEY Stop: 10/10/24 11:29 Last Admin: 09/11/24 12:03 Dose: 6 units Insulin Glargine (Lantus Per Unit Charge) 5 units SQ DAILY TONEY Stop: 10/10/24 08:59 Last Admin: 09/11/24 08:38 Dose: 5 units Levothyroxine Sodium (Levothyroxine Sodium 25 Mcg Tablet) 25 mcg PO DAILYBB TONEY Stop: 10/07/24 06:29 Last Admin: 09/11/24 06:16 Dose: 25 mcg Lorazepam (Lorazepam 2 Mg/1 Ml Vial) 2 mg IM Q6H PRN PRN Reason: Agitation Stop: 10/09/24 14:59 Lorazepam (Lorazepam 1 Mg Tab) 2 mg PO Q6H PRN PRN Reason: Anxiety/Agitation Stop: 10/09/24 14:52 Last Admin: 09/09/24 18:47 Dose: 1 mg Lorazepam (Lorazepam 1 Mg Tab) 2 mg PO HS TONEY Stop: 10/10/24 20:59 Last Admin: 09/10/24 20:22 Dose: Not Given Metoprolol Succinate (Metoprolol Succ 25mg Ext Rel Tab) 25 mg PO BID TONEY Stop: 10/10/24 20:59 Last Admin: 09/11/24 08:33 Dose: 25 mg Miscellaneous (Carbohydrates For Hypoglycemia ) 15 - 30 gm PO UD PRN PRN Reason: Hypoglycemia Protocol Stop: 10/07/24 03:30 Nitroglycerin (Nitroglycerin Sl 0.4 Mg/Tab Tab) 0.4 mg SL Q5M PRN PRN Reason: Chest Pain Stop: 10/09/24 21:54 Last Admin: 09/09/24 22:10 Dose: 0.4 mg Oxybutynin Chloride (Oxybutynin Chloride Xl 5 Mg Tabcr) 5 mg PO DAILY TONEY Stop: 10/07/24 08:59 Last Admin: 09/11/24 08:31 Dose: 5 mg Pantoprazole Sodium (Pantoprazole 40 Mg Tab) 40 mg PO DAILY TONEY Stop: 10/07/24 08:59 Last Admin: 09/11/24 08:32 Dose: 40 mg Pregabalin (Pregabalin 75 Mg Cap) 75 mg PO BID TONEY Stop: 10/07/24 08:59 Last Admin: 09/11/24 08:37 Dose: 75 mg
--- NOTE | 2024-09-11 15:18 | Hospitalist Progress Note ---
Date of Service September 11, 2024 Assessment & Plan (1) Bipolar disorder with psychotic features: (2) Non-ST elevated myocardial infarction (non-STEMI): (3) Cardiomyopathy, dilated, nonischemic: (4) Psychogenic polydipsia: (5) Schizoaffective disorder: (6) Hypo-osmolar hyponatremia: (7) Insulin-requiring or dependent type II diabetes mellitus: (8) Hypothyroidism: (9) Irritable bladder: (10) Prolonged QT interval: Plan Continue current care Communication with cardiology no further recommendations, okay for transfer to [facility] Communication with psychiatry, prefer to see QTc below 500 before excepting transfer to [facility] Continue daily EKG Admission and Anticipated Discharge Date Admission Date: September 07, 2024 Subjective No acute issues overnight Physical Exam Physical Exam: Constitutional: Alert, no acute distress HEENT: Mucous membranes moist. Lungs: Clear to auscultation, decreased, no wheezes rales or rhonchi CV: S1-S2, regular Abdomen: Soft, nontender, nondistended Extremities: No significant edema, radial cath site stable Neuro: No focal deficits Psych: Today very depressed, withdrawn, does not make eye contact, 1-2 word statements in random order without any significant meaning. Results & Data Results & Data Vital Signs (Past 12 Hours) Vital Signs Temp Pulse Pulse Resp BP Pulse Ox O2 Del Method 09/11/24 15:10 36.7 C 87 20 128/79 97 Room Air 09/11/24 14:41 85 09/11/24 11:03 36.6 C 78 20 120/74 100 Room Air 09/11/24 09:00 Room Air 09/11/24 06:55 36.6 C 90 19 133/81 99 Room Air 09/11/24 06:00 72 09/11/24 04:43 36.8 C 84 16 118/65 97 Room Air, Nasal Cannula Diagnostic Findings Personally reviewed EKG, sinus rhythm, ST-T wave abnormalities anterior laterally and inferiorly, QTc 528 ms Sodium 136
[2024-09-12] MEDS: METOPROLOL SUCC 50MG EXT REL TAB PO SCH (08:46)
--- NOTE | 2024-09-12 10:31 | Cardiology Progress Note ---
Date of Service September 12, 2024 Assessment & Plan (1) Elevated troponin: (2) Precordial chest pain: (3) Abnormal echocardiogram: (4) Schizoaffective disorder: (5) Insulin-requiring or dependent type II diabetes mellitus: (6) Apical ballooning syndrome: (7) Cardiomyopathy, dilated, nonischemic: Plan Patient is a 59-year-old female admitted with hypo osmolar hyponatremia, acute lilly in association with chronic schizophrenic disorder. Marked emotional stressors in hospital Chest pain last evening throughout the night with associated EKG changes and elevation in troponin Echocardiogram today consistent with apical ballooning cardiomyopathy versus ischemic wall motion abnormalities with focal apical expansion and hypokinesis with hyperdynamic basilar sections. Reduced ejection fraction 40% Discussed above findings in detail with patient who appears to understand well Recommended proceeding urgently to diagnostic cardiac catheterization given ongoing symptoms of chest pain Patient agreeable Planned procedure this morning 09/11/2024 Patient underwent cardiac catheterization on 09/10/2024 with normal coronary arteries. Echocardiogram consistent with stress mediated apical ballooning cardiomyopathy. Expect improvement with beta-cheri therapy and would continue metoprolol succinate 25 mg twice per day. No signs or symptoms of congestive heart for Needs echocardiogram 1 month Follow-up cardiology after echocardiogram Okay to proceed with inpatient psychiatric management 09/12/2024 Issues addressed as follows 1. Apical ballooning cardiomyopathy with return to normal LV function on echocardiogram today. Discussed management with patient would continue metoprolol succinate at least 3 months. Episode stress mediated. Patient notes having obfuscated morning metoprolol dosing. Will repeat continue 50 mg twice per day. If blood pressure remains elevated would add losartan 25 mg/day 2. Abnormal EKG consistent with apical ballooning cardiomyopathy continuing to improve QT corrected below 500 Okay to proceed with psychiatric evaluation Admission and Anticipated Discharge Date Admission Date: September 07, 2024 Subjective Patient was seen and examined, chart, medications, telemetry reviewed. No arrhythmias on telemetry Patient leery of medications and notes did not take her morning metoprolol succinate by hiding pill. Physical Exam Constitutional: + behavioral limitations (Tangential spe ech); no acute distress Eyes: PERRL, conjunctivae normal, anicteric sclerae ENMT: external ear and nose normal, oropharynx normal Neck: trachea midline, no thyromegaly Respiratory: normal respiratory effort, lungs clear to auscultation Cardiovascular: Rate/Rhythm: regular rate and regular rhythm Heart Sounds: normal S1 and normal S2; no murmur and no cardiac rub Vessels: femoral pulses present and radial pulses present (Right radial access site healing well); no JVD, no carotid bruit and no femoral bruit Gastrointestinal (Abdomen): normal bowel sounds, soft, nontender, no hepatosplenomegaly Musculoskeletal: no cyanosis or clubbing, extremities motor strength 5/5 Results & Data Vital Signs (Past 12 Hours) Vital Signs Temp Pulse Pulse Resp BP Pulse Ox O2 Del Method 09/12/24 08:00 82 09/12/24 07:08 37.0 C 109 H 20 164/96 H 100 Room Air Diagnostic Findings Laboratory Results - last 24 hr 09/11/24 09/11/24 09/11/24 11:10 16:26 19:50 POC Glucose 219 H 149 H 156 H 09/12/24 07:39 POC Glucose 148 H Limited echocardiogram 09/12/2024 Very mild hypokinesis of the apical septum with marked improvement in LV systolic function and apical expansion. EF 55 to 60% ECG Additional Comments: EKG 09/12/2024 Normal sinus rhythm at 77 bpm with T wave inversion anterolateral leads QT corrected 497
--- NOTE | 2024-09-12 13:46 | Psychiatric Progress Note ---
Date of Service September 12, 2024 Impression / Recommendations Impression 59-year-old female history of recurrent UTIs, hypertension, hyperlipidemia, asthma, diabetes type 2 on insulin, hypothyroidism, IBS, chronic anemia who presents on 09/07/2024 with psychogenic polydipsia, hyponatremia with a corrected sodium of 127 in the context of excess water consumption and poor adherence to insulin. Sodium level corrected and within expected limits now. Past hospitalization in April 2024 for hyponatremia and UTI. Psychiatry consulted for evaluation. Concern for active lilly and psychosis. Differential includes Bipolar 1 Lilly with psychosis vs SAD bipolar type vs unspecified psychosis. Likely psychogenic polydipsia from active mood and psychotic condition and expecting resolution once underling condition improves. Patient continues to present goal directed activity, pressured speech, dec need for sleep, paranoia. Demonstrates poor insight into condition, [facility], after care plans. Continues to have an increased thirst response. Concern for her physical safety and worsening health condition if discharged in her current state. Would benefit from inpatient psychiatry admission under involuntary commitment. Under 302 commitment. EKG continues to show prolonged QTc, however improved from yesterday. Limit antipsychotics at this time and utilize benzodiazepines for agitation and anxiety management. Overall, I spent a total of 50 minutes with this case including review of chart records, nursing report, review of lab work, direct evaluation of the patient at bedside, counseling the patient, discussion with the psychiatric liaison during clinical rounds, and documentation in the electronic health record. (1) Lilly: (2) Psychotic disorder: (3) Psychogenic polydipsia: (4) Insulin-requiring or dependent type II diabetes mellitus: Plan -Transfer to inpatient behavioral health -302 involuntary commitment for inpatient behavioral health -[facility] -Fluid restriction -Lorazepam 2mg HS scheduled -Lorazepam 2mg PO/IM Q6hr PRN for agitation, anxiety Interval History Identifying Information 59-year-old female history of recurrent UTIs, hypertension, hyperlipidemia, asthma, diabetes type 2 on insulin, hypothyroidism, IBS, chronic anemia who presents on 09/07/2024 with psychogenic polydipsia, hyponatremia with a co rrected sodium of 127 in the context of excess water consumption and poor adherence to insulin. Sodium level corrected and within expected limits now. Past hospitalization in April 2024 for hyponatremia and UTI. Psychiatry consulted for evaluation. Chief Complaint "Serious issues" Subjective Subjective Patient reports here to get her heart stabilized and has serious issues. "Type of myocardium, heart attack". She immediately starts complimenting the nurse liaison. 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 Reports good sleep overnight and energy is "not good". 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 When asked about next steps she seems confused and then says that she just has to call. When asked about where she would work she could not immediately state a location or place. Tangential on interview. Report multiple people are after her and wants to put them in a PFA. When told about inpatient behavioral health stay she says her counselor does not feel that she needs inpatient. When asked her if we can talk to her counselor she says she does not have her number. Procedures Performed Operation Date: 09/10/24 10:00 Actual Procedures p Cineradiography w/Routine Exam - Bogdan Bloom MD p Cath, Left with Cors and Vent - Bogdan Bloom MD Physical Exam Mental Examination Appearance: Disheveled Eye Contact: Prolonged Contact Motor Behavior: Unremarkable Speech: Excessive and Tangential Mood: Euphoric Affect: Congruent Thought Process: Disorganized and Tangential Thought Content: Preoccupation (paranoia, delusions) Hallucinations: None Insight: Poor Judgement: Poor Vital Signs (Past 24 Hours) Last Vital Signs Temp 37.0 C 09/12/24 12:49 Pulse 103 H 09/12/24 12:49 Resp 18 09/12/24 12:49 BP 142/67 H 09/12/24 12:49 Pulse Ox 100 09/12/24 12:49 O2 Del Method Room Air 09/12/24 11:33 Results & Data ([facility]) Laboratory Results Laboratory Results - last 24 hr 09/11/24 09/11/24 09/12/24 16:26 19:50 07:39 POC Glucose 149 H 156 H 148 H 09/12/24 11:55 POC Glucose 221 H Current Inpatient Medications Current Inpatient Medications: Current Inpatient Medications Acetaminophen (Acetaminophen 325 Mg Tab) 650 mg PO Q4H PRN PRN Reason: fever/pain Stop: 10/07/24 04:30 Last Admin: 09/11/24 18:02 Dose: 650 mg Aspirin (Aspirin 81 Mg Ectab) 81 mg PO DAILY TNOEY Stop: 10/09/24 21:59 Last Admin: 09/12/24 09:06 Dose: Not Given Atorvastatin Calcium (Atorvastatin 40 Mg Tab) 40 mg PO DAILY TONEY Stop: 10/07/24 08:59 Last Admin: 09/12/24 09:07 Dose: Not Given Dextrose (Dextrose 50% 50 Ml Syringe) 25 - 50 ml IV UD PRN; Protocol PRN Reason: Hypoglycemia Protocol Stop: 10/07/24 03:30 Glucagon (Glucagon For Inj 1 Mg Vial) 1 mg SQ UD PRN; Protocol PRN Reason: Hypoglycemia Protocol Stop: 10/07/24 03:30 Glucose (Glucose 40% Gel 15 Gm Tube) 15 - 30 gm PO UD PRN; Protocol PRN Reason: Hypoglycemia Protocol Stop: 10/07/24 03:30 Glucose (Glucose 10 Tab/Tube) 4 - 8 tab PO UD PRN; Protocol PRN Reason: Hypoglycemia Treatment Stop: 10/07/24 03:30 Promethazine HCl (Phenergan) 6.25 mg in 50.25 mls @ 201 mls/hr IV Q6H PRN PRN Reason: Nausea And Vomiting Stop: 10/07/24 04:30 Insulin Aspart (Insulin Aspart Per Unit Charge) 0 units SC ACHS TONEY Stop: 10/10/24 11:29 Last Admin: 09/12/24 12:10 Dose: 7 units Insulin Glargine (Lantus Per Unit Charge) 5 units SQ DAILY TONEY Stop: 10/10/24 08:59 Last Admin: 09/12/24 08:57 Dose: 5 units Levothyroxine Sodium (Levothyroxine Sodium 25 Mcg Tablet) 25 mcg PO DAILYBB [facility] Stop: 10/07/24 06:29 Last Admin: 09/12/24 06:28 Dose: Not Given Lorazepam (Lorazepam 2 Mg/1 Ml Vial) 2 mg IM Q6H PRN PRN Reason: Agitation Stop: 10/09/24 14:59 Lorazepam (Lorazepam 1 Mg Tab) 2 mg PO Q6H PRN PRN Reason: Anxiety/Agitation Stop: 10/09/24 14:52 Last Admin: 09/09/24 18:47 Dose: 1 mg Lorazepam (Lorazepam 1 Mg Tab) 2 mg PO HS TONEY Stop: 10/10/24 20:59 Last Admin: 09/11/24 20:51 Dose: Not Given Metoprolol Succinate (Metoprolol Succ 50mg Ext Rel Tab) 50 mg PO BID TONEY Stop: 10/12/24 08:59 Last Admin: 09/12/24 10:28 Dose: 50 mg Miscellaneous (Carbohydrates For Hypoglycemia ) 15 - 30 gm PO UD PRN PRN Reason: Hypoglycemia Protocol Stop: 10/07/24 03:30 Nitroglycerin (Nitroglycerin Sl 0.4 Mg/Tab Tab) 0.4 mg SL Q5M PRN PRN Reason: Chest Pain Stop: 10/09/24 21:54 Last Admin: 09/09/24 22:10 Dose: 0.4 mg Oxybutynin Chloride (Oxybutynin Chloride Xl 5 Mg Tabcr) 5 mg PO DAILY TONEY Stop: 10/07/24 08:59 Last Admin: 09/12/24 08:46 Dose: 5 mg Pantoprazole Sodium (Pantoprazole 40 Mg Tab) 40 mg PO DAILY TONEY Stop: 10/07/24 08:59 Last Admin: 09/12/24 08:46 Dose: 40 mg Pregabalin (Pregabalin 75 Mg Cap) 75 mg PO BID TONEY Stop: 10/07/24 08:59 Last Admin: 09/12/24 08:58 Dose: 75 mg
[2024-09-12 16:09] VITALS: BP 132/83; PULSE 80; RESP 17; TEMP 97.3; O2SAT 99
--- NOTE | 2024-09-13 05:14 | Electrocardiogram Report ---
Test Reason : Blood Pressure : */* mmHG Vent. Rate : 90 BPM Atrial Rate : 90 BPM P-R Int : 154 ms QRS Dur : 90 ms QT Int : 414 ms P-R-T Axes : 21 31 150 degrees QTcB Int : 506 ms Normal sinus rhythm Prolonged QT Abnormal ECG When compared with ECG of 07-Sep-2024 02:53, T wave inversion now evident in Lateral leads Confirmed by Gadiel Villeda ([id number]) on 09/13/2024 5:14:05 AM Referred By: REFERRED SELF Confirmed By: Gadiel Villeda
--- NOTE | 2024-09-13 05:20 | Electrocardiogram Report ---
Test Reason : Blood Pressure : */* mmHG Vent. Rate : 90 BPM Atrial Rate : 90 BPM P-R Int : 160 ms QRS Dur : 88 ms QT Int : 434 ms P-R-T Axes : 33 27 168 degrees QTcB Int : 530 ms Normal sinus rhythm Prolonged QT Abnormal ECG When compared with ECG of 09-Sep-2024 21:12, T wave inversion more evident in Lateral leads Confirmed by Gadiel Villeda ([id number]) on 09/13/2024 5:20:14 AM Referred By: REFERRED SELF Confirmed By: Gadiel Villeda
--- NOTE | 2024-09-13 05:49 | Electrocardiogram Report ---
Test Reason : Blood Pressure : */* mmHG Vent. Rate : 73 BPM Atrial Rate : 73 BPM P-R Int : 154 ms QRS Dur : 90 ms QT Int : 480 ms P-R-T Axes : 80 81 193 degrees QTcB Int : 528 ms Normal sinus rhythm Prolonged QT Abnormal ECG When compared with ECG of 10-Sep-2024 05:54, T wave inversion more evident in Inferior leads Confirmed by Gadiel Villeda ([id number]) on 09/13/2024 5:48:58 AM Referred By: REFERRED SELF Confirmed By: Gadiel Villeda
--- NOTE | 2024-09-13 05:49 | Electrocardiogram Report ---
Test Reason : Blood Pressure : */* mmHG Vent. Rate : 77 BPM Atrial Rate : 77 BPM P-R Int : 150 ms QRS Dur : 92 ms QT Int : 440 ms P-R-T Axes : 68 63 153 degrees QTcB Int : 497 ms Normal sinus rhythm Prolonged QT Abnormal ECG When compared with ECG of 11-Sep-2024 05:35, T wave inversion less evident in Inferior leads Confirmed by Gadiel Villeda ([id number]) on 09/13/2024 5:49:13 AM Referred By: REFERRED SELF Confirmed By: Gadiel Villeda
== END 2024-09-12 20:05 | DRG 640 ==
LOC: ED 22:33 → 2S 09-07 03:30 → 3N 09-07 18:15 → 2S 09-09 22:56

== ENCOUNTER 2024-09-12 13:57 | Inpatient (IN) ==
[2024-09-12] MEDS ORDERED: hydrOXYzine HCl 25 MG TAB PO PRN (14:32)
[2024-09-12] MEDS ORDERED: SODIUM CHLORIDE 0.65% NA SOLN 45 ML (OCEAN) PRN (14:32)
[2024-09-12] MEDS ORDERED: ALUMINUM/MAGNESIUM SUSP 30 ML UDC PO PRN (14:32)
[2024-09-12] MEDS ORDERED: BISMUTH SUBSALICYLATE 262 MG CHEW PO PRN (14:32)
[2024-09-12] MEDS ORDERED: LORazepam 1 MG TAB PO PRN (14:35)
[2024-09-12] MEDS ORDERED: LORazepam 2 MG/1 ML VIAL IM PRN ×2 (14:35→21:02)
[2024-09-12] MEDS: LORazepam 1 MG TAB PO SCH (21:21)
[2024-09-12] MEDS: INSULIN ASPART PER UNIT CHARGE SC SCH (21:30)
[2024-09-12] MEDS: PREGABALIN 75 MG CAP PO SCH (21:32)
[2024-09-12] MEDS: METOPROLOL SUCC 50MG EXT REL TAB PO SCH (21:39)
[2024-09-12] MEDS ORDERED: PHARMACY GLYCEMIC MGMT CONSULT PRN (22:56)
--- NOTE | 2024-09-13 09:44 | Pharmacy Report ---
Pharmacy Glycemic Short Note 2 - Date of Service September 13, 2024 - Glycemic Short BSG Results (Last 24 hours): 09/12/24 09/13/24 20:41 09:25 POC Glucose 212 H 145 H OUTPATIENT ANTIDIABETIC REGIMEN: * Basaglar 16 units SC HS * Novolog Sliding scale * Metformin 1 gm PO BID * Trulicity 4.5 mg SC weekly ASSESSMENT: * 59 y/o F admitted on inpatient unit around a week ago for hyponatremia, UTI and cardiac condition requiring cath in addition to llily. She has history of bipolar disorder and schizophrenia, Type 2 diabetes requiring insulin. Transferred to [facility] last night for psychiatric evaluation. * On the inpatient unit, patient had been receiving 5 units of basal insulin and Novolog ACHS- correction factor with stress between 2 and 3 but looser carb ratio. * BSGs yesterday were [phone] mg/dl. She received 5 units of basal and 14 units of bolus insulins yesterday. * Fasting BSG today was 145 mg/dl. * Metformin home dose was added to her meds today. * Will hold off on AM basal and move it to HS to be similar to home regimen. Initiated today's basal dose at 50% of home dose. PLAN FOR INPATIENT GLYCEMIC CONTROL: * Metformin 1 gm PO BID * Basal insulin * Lantus 8 units SQ HS * Bolus insulin * NovoLog per scale ACHS or Q6hrs while NPO * Goal Range: Low 110 mg/dL - High 140 mg/dL * Correction Factor: 20 mg/dL/unit * Nutritional / Prandial insulin per carb ratio of 1 unit per 15 grams CHO consumed
[2024-09-13] MEDS: ASPIRIN 81 MG CHEW PO SCH (10:09)
[2024-09-13] MEDS: ATORVASTATIN 40 MG TAB PO SCH (10:10)
[2024-09-13] MEDS: metFORMIN HCL 500 MG TAB PO SCH (10:10)
[2024-09-13] MEDS: LEVOTHYROXINE SODIUM 25 MCG TABLET PO SCH (10:10)
[2024-09-13] MEDS: PANTOprazole 40 MG TAB PO SCH (10:12)
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
[2024-09-13 12:33] LABS: Anion Gap 5 (3-11); BUN Creatinine Ratio 22.6 (10-20); Blood Urea Nitrogen 14 mg/dl (6-23); Calcium 8.9 mg/dl (8.6-10.3); Carbon Dioxide 27 mmol/L (21-32); Chloride 98 mmol/L (98-107); Glucose 182 mg/dl (70-99(Fasting)); Sodium 130 mmol/L (136-145)
[2024-09-13] MEDS: HYDROCORTISONE 1% OINT 30 GM TUBE EXT PRN (16:42)
[2024-09-13 17:08] LABS: Appearance Urine Clear (Clear); Bilirubin Urine Negative (Negative); Blood Urine Negative (Negative); Color Urine Yellow; Glucose Urine UA Negative (Negative); Ketones Urine Negative (Negative); Leukocyte Esterase Urine Negative (Negative); Nitrite Urine Negative (Negative); Protein Urine Negative (Negative); Specific Gravity Urine 1.004 (1.000-1.030); Urobilinogen Urine Negative (Negative); pH Urine 5.5 (4.5-7.5)
[2024-09-13] MEDS: ASCORBIC ACID 500 MG TAB PO SCH (17:16)
[2024-09-13] MEDS: ACETAMINOPHEN 325 MG TAB PO PRN (20:24)
[2024-09-13] MEDS: ARIPiprazole 10 MG TAB PO SCH (21:46)
[2024-09-13] MEDS: LANTUS PER UNIT CHARGE SC SCH (22:19)
--- NOTE | 2024-09-14 05:59 | Electrocardiogram Report ---
Test Reason : Blood Pressure : */* mmHG Vent. Rate : 86 BPM Atrial Rate : 86 BPM P-R Int : 152 ms QRS Dur : 90 ms QT Int : 400 ms P-R-T Axes : 38 40 99 degrees QTcB Int : 479 ms Normal sinus rhythm Prolonged QT Abnormal ECG When compared with ECG of 12-Sep-2024 05:39, No significant change was found Confirmed by Gadiel Villeda ([id number]) on 09/14/2024 5:59:05 AM Referred By: Bill Sanford Confirmed By: Gadiel Villeda
[2024-09-14] MEDS: CHOLECALCIFEROL 125 MCG (5,000 UNITS) TAB PO SCH (09:34)
--- NOTE | 2024-09-14 13:35 | Psychiatric Progress Note ---
Date of Service September 14, 2024 Impression / Recommendations Impression WILL PERSAUD is a 59-year-old F who currently lives in alone, has a history of psychosis, corine, and was admitted on 09/12/24 20:08 on a 302 involuntary commitment for psychosis, corine, polygenic polydipsia. Initially hospitalized for management of hyponatremia and stabilized; had NSTEMI and stabilized; now transferred to inpatient U. Currently on 303 involuntary commitment. Recent labs showed low urine osmolality and a sodium that is trending down at 130. There is concern patient continues to have an excess thirst response due to her mood and psychotic condition and is diverting fluids from her bathroom. Plan to turn off water and bathroom and have supervised bathroom visits given hyponatremia concerns. Vitamin D resulted is low and we will start supplementation. Plan for EKG to monitor QTc. Given Abilify refusal will discontinue and start risperidone 1 mg at bedtime. Given ongoing psychogenic polydipsia and patient's inability to control thirst response and concern for hyponatremia (potential cause of AMS, seizures, coma) she would benefit from medications against objection to treat her underlying mood and psychotic condition as her current condition may pose a risk of harm to her physical safety. Overall, I spent a total of 40 minutes with this case including review of chart records, nursing report, review of lab work, direct evaluation of the patient at bedside, counseling the patient, multidisciplinary team meeting, orders, and documentation in the electronic health record. (1) Corine: (2) Psychotic disorder: (3) Psychogenic polydipsia: (4) Cardiomyopathy, dilated, nonischemic: (5) Prolonged QT interval: (6) Abnormal echocardiogram: Plan 09/14/2024: Water restriction at 1500 mL. Water turned off in bathroom with supervised bathroom visits. Discontinue Abilify and start risperidone 1 mg at bedtime. Draw blood sodium and urine osmolality tomorrow morning. Zofran ODT as needed started. EKG scheduled for tomorrow to monitor QTc prolongation. Vit D 5000un daily started. 09/13/2024: The patient was admitted to the [facility] ([facility] mental health unit) on q15 min checks (behavioral with suicide precautions) for safety. The patient will participate in group, recreational, and milieu therapies and will be offered additional individual and family sessions as clinically appropriate. - Repeat EKG. Draw labs for BMP, vitamin D, B12. Draw urinalysis, urine osmolality. - Start Abilify 10 mg at bedtime. - Continue Lorazepam 2mg PO HS Inventory Assets Strengths: adherent to treatment, future oriented Needs: improved insight, social supports Suicide Risk Level Suicide Risk Level: Moderate (q15 min suicide checks) Risk Factors Assessment Male: No : Yes Do You Have Access To A Gun?: No Health Problems: Yes Mental Health Diagnoses: Yes Substance Use Disorders: No Previous Attempt: No Family History of Suicide: No Previous Psychiatric Hospitalization: Yes Hopelessness: No Protective Factors Assessment Worship Beliefs: Yes : No Responsible for Young Children: No Employed: No Stable Relationships: No Supportive Family: No Good Rapport with Provider: Yes Absence of Any Risk Factors Above: No Interval History Identifying Information WILL PERSAUD is a 59-year-old F who currently lives in alone, has a history of psychosis, corine, and was admitted on 09/12/24 20:08 on a 302 involuntary commitment for psychosis, corine, polygenic polydipsia. Initially hospitalized for management of hyponatremia and stabilized; had NSTEMI and stabilized; now transferred to inpatient U. Chief Complaint "Tired" Review of Systems Sleep Information Total Hours of Sleep: 7 Meal Information Percent Meal Consumed - Breakfast: 90 Percent Meal Consumed - Lunch: 100 Percent Meal Consumed - Dinner: 100 Subjective Subjective Patient was seen & assessed and interval progress reviewed with treatment team nursing and social work Nursing reports patient was incontinent of urine. Refused nightly Abilify. Slept 7 hours. On interview patient reports sleeping well and continues to be tired. She complains of chest pain and back pain. Says that she is not supposed to be here and was supposed to be on the medical floor. Complains of nausea. Says that she needs to be on an antibiotic for UTI. Says that her urine has blood and she is having fevers. When I tell her that the urinalysis was normal and that her vitals are stable she says that sometimes the test strips are ineffective. Reports that she lives alone. When I discuss her antipsychotic medication she reports being allergic to Abilify. I bring up alternative options such as other antipsychotics and mood stabilizers and then she is hesitant to take anything. Says that she wants antidepressants and negotiates trying to get Cymbalta. Patient is labile in her conversation and becomes tearful. She reports she admires what I do and complements me. Physical Exam Mental Examination Appearance: Well Groomed Eye Contact: Maintains Eye Contact Motor Behavior: Unremarkable Speech: Normal Mood: Anxious and Irritable Affect: Labile Thought Process: Disorganized Thought Content: Racing and Preoccupation (grandiose, persecutory delusions) Hallucinations: None Insight: Poor Judgement: Poor Vital Signs (Past 24 Hours) Last Vital Signs Temp 36.2 C L 09/14/24 06:17 Pulse 93 H 09/14/24 06:17 Resp 18 09/14/24 06:17 BP 122/77 09/14/24 06:17 Pulse Ox 99 09/14/24 06:17 O2 Del Method Room Air 09/14/24 06:17 Results & Data ([facility]) Laboratory Results Laboratory Results - last 24 hr 09/13/24 09/13/24 09/13/24 16:35 16:45 21:56 POC Glucose 112 H 155 H Urine Color Yellow Urine Appearance Clear Urine pH 5.5 Ur Specific [place] 1.004 Urine Protein Negative Urine Glucose (UA) Negative Urine Ketones Negative Urine Blood Negative Urine Nitrite Negative Urine Bilirubin Negative Urine Urobilinogen Negative Ur Leukocyte Esterase Negative Urine Osmolality 124 L 09/14/24 09/14/24 09:27 12:37 POC Glucose 160 H 205 H Urine Color Urine Appearance Urine pH Ur Specific [place] Urine Protein Urine Glucose (UA) Urine Ketones Urine Blood Urine Nitrite Urine Bilirubin Urine Urobilinogen Ur Leukocyte Esterase Urine Osmolality Current Inpatient Medications Current Inpatient Medications: Current Inpatient Medications Acetaminophen (Acetaminophen 325 Mg Tab) 650 mg PO Q4H PRN PRN Reason: Headache or Minor Fever Stop: 10/12/24 14:31 Last Admin: 09/14/24 10:30 Dose: 650 mg Al Hydrox/Mg Hydrox/Simethicone (Aluminum/Magnesium Susp 30 Ml Udc) 30 ml PO Q4H PRN PRN Reason: GI Upset Stop: 10/12/24 14:31 Ascorbic Acid (Ascorbic Acid 500 Mg Tab) 1,000 mg PO QAM [facility] Stop: 10/13/24 13:44 Last Admin: 09/14/24 09:32 Dose: 1,000 mg Aspirin (Aspirin 81 Mg Chew) 81 mg PO DAILY [facility] Stop: 10/13/24 08:59 Last Admin: 09/14/24 09:33 Dose: 81 mg Atorvastatin Calcium (Atorvastatin 40 Mg Tab) 40 mg PO QAM TONEY Stop: 10/13/24 08:59 Last Admin: 09/14/24 09:34 Dose: 40 mg Bismuth Subsalicylate (Bismuth Subsalicylate 262 Mg Chew) 2 tab PO Q30M PRN PRN Reason: Loose Stool/Diarrhea Stop: 10/12/24 14:31 Hydrocortisone (Hydrocortisone 1% Oint 30 Gm Tube) 1 appln EXT BID PRN PRN Reason: Affected Skin Folds Stop: 10/12/24 21:58 Last Admin: 09/13/24 16:42 Dose: 1 appln Hydroxyzine HCl (Hydroxyzine Hcl 25 Mg Tab) 50 mg PO HSZ PRN PRN Reason: Insomnia Stop: 10/12/24 14:31 Hydroxyzine HCl (Hydroxyzine Hcl 25 Mg Tab) 25 mg PO Q4H PRN PRN Reason: Anxiety Stop: 10/12/24 14:31 Insulin Aspart (Insulin Aspart Per Unit Charge) 0 units SC ACHS TONEY Stop: 10/12/24 21:59 Last Admin: 09/14/24 13:23 Dose: 8 units Insulin Glargine (Lantus Per Unit Charge) 8 units SC HS TONEY Stop: 10/13/24 21:59 Last Admin: 09/13/24 22:19 Dose: 8 units Levothyroxine Sodium (Levothyroxine Sodium 25 Mcg Tablet) 25 mcg PO DAILYBB TONEY Stop: 10/13/24 07:59 Last Admin: 09/14/24 09:32 Dose: 25 mcg Lorazepam (Lorazepam 1 Mg Tab) 2 mg PO Q8H PRN PRN Reason: Anxiety/Agitation Stop: 10/12/24 14:34 Lorazepam (Lorazepam 1 Mg Tab) 2 mg PO HS TONEY Stop: 10/12/24 21:59 Last Admin: 09/13/24 21:47 Dose: 2 mg Lorazepam (Lorazepam 2 Mg/1 Ml Vial) 2 mg IM Q8H PRN PRN Reason: Anxiety/Agitation Stop: 10/12/24 21:01 Magnesium Hydroxide (Magnesium Hydroxide Susp 30 Ml Udc) 30 ml PO DAILY PRN PRN Reason: Constipation Stop: 10/12/24 14:31 Metformin HCl (Metformin Hcl 500 Mg Tab) 1,000 mg PO BIDM TONEY Stop: 10/13/24 08:59 Last Admin: 09/14/24 09:40 Dose: 1,000 mg Metoprolol Succinate (Metoprolol Succ 50mg Ext Rel Tab) 50 mg PO BID [facility] Stop: 10/12/24 20:59 Last Admin: 09/14/24 09:34 Dose: 50 mg Miscellaneous Information (Pharmacy Glycemic Mgmt Consult) 1 each N/A UD PRN; Protocol PRN Reason: Consult Stop: 10/12/24 22:55 Ondansetron HCl (Ondansetron 4 Mg Od Tab) 4 mg PO Q6H PRN PRN Reason: Nausea Stop: 10/14/24 11:27 Pantoprazole Sodium (Pantoprazole 40 Mg Tab) [facility] Stop: 10/13/24 08:59 Last Admin: 09/14/24 09:34 Dose: 40 mg Pregabalin (Pregabalin 75 Mg Cap) 75 mg PO BID [facility] Stop: 10/12/24 20:59 Last Admin: 09/14/24 09:34 Dose: 75 mg Risperidone (Risperidone 1 Mg Tablet) 1 mg PO HS [facility] Stop: 10/14/24 21:59 Sodium Chloride (Sodium Chloride 0.65% Na Soln 45 Ml ([place])) 1 - 2 sprays NA PRN PRN PRN Reason: Nasal Dryness/Congestion Stop: 10/12/24 14:31 Vitamin D (Cholecalciferol 125 Mcg (5,000 Units) Tab) 125 mcg PO QAM [facility] Stop: 10/14/24 08:59 Last Admin: 09/14/24 09:34 Dose: 125 mcg
[2024-09-14] MEDS: ONDANSETRON 4 MG OD TAB PO PRN (14:30)
--- NOTE | 2024-09-14 15:15 | Pharmacy Report ---
Pharmacy Glycemic Short Note 2 - Date of Service September 14, 2024 - Glycemic Short BSG Results (Last 24 hours): 09/13/24 09/13/24 09/14/24 16:35 21:56 09:27 POC Glucose 112 H 155 H 160 H 09/14/24 12:37 POC Glucose 205 H OUTPATIENT ANTIDIABETIC REGIMEN: * Basaglar 16 units SC HS * Novolog Sliding scale * Metformin 1 gm PO BID * Trulicity 4.5 mg SC weekly ASSESSMENT: 09/13 * Total of 21 units of insulin given yesterday. 8 units were basal and 13 units were bolus. * Fasting BSG this morning was 160mg/dL and then increased to 205mg/dL at lunch time. The Lantus dose was increased to 10 units starting this evening. (still ~40% less than her home dose of basal insulin) * Parameters of the bolus insulin were tightened yesterday and this will be continued for now. Patient still continues on her home metformin dose bid. 09/12 * 59 y/o F admitted on inpatient unit around a week ago for hyponatremia, UTI and cardiac condition requiring cath in addition to lilly. She has history of bipolar disorder and schizophrenia, Type 2 diabetes requiring insulin. Transferred to [facility] last night for psychiatric evaluation. * On the inpatient unit, patient had been receiving 5 units of basal insulin and Novolog ACHS- correction factor with stress between 2 and 3 but looser carb ratio. * BSGs yesterday were [id number] mg/dl. She received 5 units of basal and 14 units of bolus insulins yesterday. * Fasting BSG today was 145 mg/dl. * Metformin home dose was added to her meds today. * Will hold off on AM basal and move it to HS to be similar to home regimen. Initiated today's basal dose at 50% of home dose. PLAN FOR INPATIENT GLYCEMIC CONTROL: * Metformin 1 gm PO BID * Basal insulin * Lantus 10 units SQ HS * Bolus insulin * NovoLog per scale ACHS or Q6hrs while NPO * Goal Range: Low 110 mg/dL - High 140 mg/dL * Correction Factor: 20 mg/dL/unit * Nutritional / Prandial insulin per carb ratio of 1 unit per 15 grams CHO consumed
[2024-09-14] MEDS: risperiDONE 1 MG TABLET PO SCH (22:27)
[2024-09-14] MEDS: LANTUS PER UNIT CHARGE SC SCH (22:28)
--- NOTE | 2024-09-15 09:30 | Psychiatric Progress Note ---
Date of Service September 15, 2024 Impression / Recommendations Impression WILL PERSAUD is a 59-year-old wm with a history of psychosis, lilly, and was admitted on 09/12/24 20:08 on a 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 Initially hospitalized for management of hyponatremia and stabilized; had NSTEMI and stabilized; now transferred to inpatient BHU. Currently on 303 involuntary commitment. Diagnostically consistent with unpsecified psychosis-differential includes schizoaffective d/o vs schizophrenia vs BPAD current mixed episode. Substance-induced unlikely given negative UDS and history of past psychiatric hospitalizations. Also with psycho genic polydipsia. A: Ongoing psychosis and observed responding to internal stimuli most of the morning. Mood lability with periods of irritability and reports subjective depression. Encouragingly after refusing risperidone last night she did accept lowered dose this morning. Repeat labwork today shows improved and now normal sodium with cutting off access to excess water and EKG reviewed and QTc remains <500ms and therefore stable for use of antipsychotic medication as risk/benefit profile favors treatment of her psychosis and mood changes. Given her psychosis and significant risk for further decompensation from psychogenic polydipsia (required bathroom water to be shut off) and disorganization including driving the wrong way on a highway ramp she is also at risk of harm to others and herself, she would benefit from medications over objection to treat her mood and psychotic disorder as she remains at risk of harm to self, others and physical decompensation with potential for irreversible harm (especially given recent required medical admission due to severity of her hyponatremia and ongoing poor insight into this). Overall, I spent a total of 55 minutes with this case including review of chart records, nursing report, review of lab work, direct evaluation of the patient at bedside, counseling the patient, multidisciplinary team meeting, orders, and documentation in the electronic health record. (1) Lilly: (2) Psychotic disorder: (3) Psychogenic polydipsia: (4) Cardiomyopathy, dilated, nonischemic: (5) Prolonged QT interval: (6) Abnormal echocardiogram: Plan 09/15/2024: -Start risperidone 0.5mg QAM po and olanzapine 10mg prn IM for medication over objection -Continue risperidone 1mg HS -Continue water restriction and use of separate bathroom to avoid excess intake -Continue with routine EKG q2-3 days to assess QTc as further doses of antipsychotic medication are utilized 09/14/2024: Water restriction at 1500 mL. Water turned off in bathroom with supervised bathroom visits. Discontinue Abilify and start risperidone 1 mg at bedtime. Draw blood sodium and urine osmolality tomorrow morning. Zofran ODT as needed started. EKG scheduled for tomorrow to monitor QTc prolongation. Vit D 5000un daily started. 09/13/2024: The patient was admitted to the [facility] ([facility]) on q15 min checks (behavioral with suicide precautions) for safety. The patient will participate in group, recreational, and milieu therapies and will be offered additional individual and family sessions as clinically appropriate. - Repeat EKG. Draw labs for BMP, vitamin D, B12. Draw urinalysis, urine osmolality. - Start Abilify 10 mg at bedtime. - Continue Lorazepam 2mg PO HS Inventory Assets Strengths: adherent to treatment, future oriented Needs: improved insight, social supports Suicide Risk Level Suicide Risk Level: Moderate (q15 min suicide checks) (mood changes and psychosis with disorganization but denies SI and feels safe in the hospital, feels able to ask for support) Risk Factors Assessment Male: No : Yes Do You Have Access To A Gun?: No Health Problems: Yes Mental Health Diagnoses: Yes Substance Use Disorders: No Previous Attempt: No Family History of Suicide: No Previous Psychiatric Hospitalization: Yes Hopelessness: No Protective Factors Assessment [employer] Beliefs: Yes : No Responsible for Young Children: No Employed: No Stable Relationships: No Supportive Family: No Good Rapport with Provider: Yes Absence of Any Risk Factors Above: No Interval History Identifying Information WILL PERSAUD is a 59-year-old F who currently lives in alone, has a history of psychosis, lilly, and was admitted on 09/12/24 20:08 on a 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 Initially hospitalized for management of hyponatremia and stabilized; had NSTEMI and stabilized; now transferred to inpatient U. Chief Complaint "Lied on about". Review of Systems Sleep Information Total Hours of Sleep: 8.5 Meal Information Percent Meal Consumed - Breakfast: 90 Percent Meal Consumed - Lunch: 100 Percent Meal Consumed - Dinner: 90 Subjective Subjective Patient was seen & assessed and interval progress reviewed with treatment team nursing and social work. Making inappropriate sexual comments, unable to t olerate groups. Irritable at times. Refused medications yesterday, accepted medications this morning. Did allow labwork. Tells me: "us Willie's don't get psychosis, just depression". Minimizes co ncerns prior to admission, states she only drove the wrong direction because she was following someone else. Reports she's been "lied on about". Denies drinking from toilet previously. Feels tired. Feels she needs something for depression. Tells me she has been in her room all morning and that "someone asked me to dance for his penis". States 'I couldn't understand the group" so she plans to remain in her room. Denies having an allergy to risperidone and recalls taking this before "at low doses otherwise I'll just sleep". Reports allergy to abilify when asked about this as an option for medication. References past trials of Wellbutrin and Pristiq while on risperidone. Observed talking to herself most of the morning. Physical Exam Psychiatric Orientation: alert, oriented to person and oriented to place Apperance: appropriately dressed Eye Contact: + fair eye contact Speech: normal rate/rhythm/volume of speech (refers to herself in the third person frequently) Affect: + flat affect Mood: + depressed mood Thought Process: + looseness of associations Thought Content: + paranoid and + delusions Suicidal Thoughts: denies suicidal thoughts Homicidal Thoughts: denies homicidal thoughts Hallucinations: + auditory hallucinations Insight: + severely impaired insight Judgment: + limited judgement Vital Signs (Past 24 Hours) Last Vital Signs Temp 36.4 C 09/15/24 05:51 Pulse 87 09/15/24 05:52 Resp 18 09/15/24 05:51 BP 111/74 09/15/24 05:52 Pulse Ox 97 09/15/24 05:51 O2 Del Method Room Air 09/15/24 05:51 Results & Data ([facility]) Laboratory Results Laboratory Results - last 24 hr 09/14/24 09/14/24 09/14/24 09:27 12:37 17:01 Sodium POC Glucose 160 H 205 H 87 Urine Osmolality 09/15/24 09/15/24 09/15/24 06:57 09:07 Unknown Sodium Pending POC Glucose 144 H Urine Osmolality 663 Current Inpatient Medications Current Inpatient Medications: Current Inpatient Medications Acetaminophen (Acetaminophen 325 Mg Tab) 650 mg PO Q4H PRN PRN Reason: Headache or Minor Fever Stop: 10/12/24 14:31 Last Admin: 09/14/24 22:09 Dose: 650 mg Al Hydrox/Mg Hydrox/Simethicone (Aluminum/Magnesium Susp 30 Ml Udc) 30 ml PO Q4H PRN PRN Reason: GI Upset Stop: 10/12/24 14:31 Ascorbic Acid (Ascorbic Acid 500 Mg Tab) 1,000 mg PO QAM [facility] Stop: 10/13/24 13:44 Last Admin: 09/15/24 09:15 Dose: 1,000 mg Aspirin (Aspirin 81 Mg Chew) 81 mg PO DAILY [facility] Stop: 10/13/24 08:59 Last Admin: 09/15/24 09:15 Dose: 81 mg Atorvastatin Calcium (Atorvastatin 40 Mg Tab) 40 mg PO QAM [facility] Stop: 10/13/24 08:59 Last Admin: 09/15/24 09:15 Dose: 40 mg Bismuth Subsalicylate (Bismuth Subsalicylate 262 Mg Chew) 2 tab PO Q30M PRN PRN Reason: Loose Stool/Diarrhea Stop: 10/12/24 14:31 Hydrocortisone (Hydrocortisone 1% Oint 30 Gm Tube) 1 appln EXT BID PRN PRN Reason: Affected Skin Folds Stop: 10/12/24 21:58 Last Admin: 09/13/24 16:42 Dose: 1 appln Hydroxyzine HCl (Hydroxyzine Hcl 25 Mg Tab) 50 mg PO HSZ PRN PRN Reason: Insomnia Stop: 10/12/24 14:31 Hydroxyzine HCl (Hydroxyzine Hcl 25 Mg Tab) 25 mg PO Q4H PRN PRN Reason: Anxiety Stop: 10/12/24 14:31 Insulin Aspart (Insulin Aspart Per Unit Charge) 0 units SC ACHS [facility] Stop: 10/12/24 21:59 Last Admin: 09/14/24 22:27 Dose: Not Given Insulin Glargine (Lantus Per Unit Charge) 10 units SC HS [facility] Stop: 10/13/24 21:59 Last Admin: 09/14/24 22:28 Dose: Not Given Levothyroxine Sodium (Levothyroxine Sodium 25 Mcg Tablet) 25 mcg PO DAILYBB [facility] Stop: 10/13/24 07:59 Last Admin: 09/15/24 09:16 Dose: 25 mcg Lorazepam (Lorazepam 1 Mg Tab) 2 mg PO Q8H PRN PRN Reason: Anxiety/Agitation Stop: 10/12/24 14:34 Lorazepam (Lorazepam 1 Mg Tab) 2 mg PO HS [facility] Stop: 10/12/24 21:59 Last Admin: 09/14/24 22:27 Dose: Not Given Lorazepam (Lorazepam 2 Mg/1 Ml Vial) 2 mg IM Q8H PRN PRN Reason: Anxiety/Agitation Stop: 10/12/24 21:01 Magnesium Hydroxide (Magnesium Hydroxide Susp 30 Ml Udc) 30 ml PO DAILY PRN PRN Reason: Constipation Stop: 10/12/24 14:31 Metformin HCl (Metformin Hcl 500 Mg Tab) 1,000 mg PO BIDM [facility] Stop: 10/13/24 08:59 Last Admin: 09/15/24 09:16 Dose: 1,000 mg Metoprolol Succinate (Metoprolol Succ 50mg Ext Rel Tab) 50 mg PO BID [facility] Stop: 10/12/24 20:59 Last Admin: 09/15/24 09:16 Dose: 50 mg Miscellaneous Information (Pharmacy Glycemic Mgmt Consult) 1 each N/A UD PRN; Protocol PRN Reason: Consult Stop: 10/12/24 22:55 Ondansetron HCl (Ondansetron 4 Mg Od Tab) 4 mg PO Q6H PRN PRN Reason: Nausea Stop: 10/14/24 11:27 Last Admin: 09/14/24 14:30 Dose: 4 mg Pantoprazole Sodium (Pantoprazole 40 Mg Tab) 40 mg PO QAM [facility] Stop: 10/13/24 08:59 Last Admin: 09/15/24 09:16 Dose: 40 mg Pregabalin (Pregabalin 75 Mg Cap) 75 mg PO BID [facility] Stop: 10/12/24 20:59 Last Admin: 09/15/24 09:17 Dose: 75 mg Risperidone (Risperidone 1 Mg Tablet) 1 mg PO HS [facility] Stop: 10/14/24 21:59 Last Admin: 09/14/24 22:27 Dose: Not Given Sodium Chloride (Sodium Chloride 0.65% Na Soln 45 Ml ([place])) 1 - 2 sprays NA PRN PRN PRN Reason: Nasal Dryness/Congestion Stop: 11/22/24 14:31 Vitamin D (Cholecalciferol 125 Mcg (5,000 Units) Tab) 125 mcg PO [facility] Stop: 10/14/24 08:59 Last Admin: 09/15/24 09:16 Dose: 125 mcg
[2024-09-15] MEDS: risperiDONE 1 MG TABLET PO SCH (10:10)
[2024-09-15] MEDS: risperiDONE 0.5 MG TABLET PO SCH (11:18)
[2024-09-15] MEDS ORDERED: OLANZapine 10 MG/2.1 ML SDV IM PRN (15:56)
--- NOTE | 2024-09-16 07:38 | Electrocardiogram Report ---
Test Reason : Blood Pressure : */* mmHG Vent. Rate : 83 BPM Atrial Rate : 83 BPM P-R Int : 156 ms QRS Dur : 94 ms QT Int : 402 ms P-R-T Axes : 80 72 21 degrees QTcB Int : 472 ms Normal sinus rhythm T wave abnormality, consider anterolateral ischemia Prolonged QT Abnormal ECG When compared with ECG of 13-Sep-2024 11:08, T wave inversion less evident in Lateral leads Confirmed by Bogdan Owen ([id number]) on 09/16/2024 7:38:16 AM Referred By: Bill Sanford Confirmed By: Bogdan Owen
--- NOTE | 2024-09-16 09:56 | Psychiatric Progress Note ---
Date of Service September 16, 2024 Impression / Recommendations Impression WILL PERSAUD is a 59-year-old wm with a history of psychosis, corine, and was admitted on 09/12/24 20:08 on a 302 involuntary commitment for psychosis, corine, polygenic polydipsia. Initially hospitalized for management of hyponatremia and stabilized; had NSTEMI and stabilized; now transferred to inpatient BHU. Currently on 303 involuntary commitment. Diagnostically consistent with unpsecified psychosis-differential includes schizoaffective d/o vs schizophrenia vs BPAD current mixed episode. Substance-induced unlikely given negative UDS and history of past psychiatric hospitalizations. Also with psycho genic polydipsia. A: Psychosis continues, suspect may also be component of hypomania vs mixed episode of schizoaffective disorder given mood lability, poor sleep and hypersexual comments at times. Ongoing delusions including somatic focus. Bizarre behaviors and disorganization at times. Remains resistant to medications but accepting risperidone as she prefers to avoid IM medication. Increasing m orning risperidone dose since she is refusing HS dose. No evidence for side effects so far. Overall, I spent a total of 35 minutes with this case including review of chart records, nursing report, review of lab work, direct evaluation of the patient at bedside, counseling the patient, multidisciplinary team meeting, orders, and documentation in the electronic health record. (1) Corine: (2) Psychotic disorder: (3) Psychogenic polydipsia: (4) Cardiomyopathy, dilated, nonischemic: (5) Prolonged QT interval: (6) Abnormal echocardiogram: Plan 09/16/2024: -Increase risperidone to 1mg qAM and olanzapine 10mg prn IM for medication over objection -Continue risperidone 1mg HS -Continue water restriction and use of separate bathroom to avoid excess intake -Will repeat EKG again on 09/18/2024 to assess QTc 09/15/2024: -Start risperidone 0.5mg QAM po and olanzapine 10mg prn IM for medication over objection -Continue risperidone 1mg HS -Continue water restriction and use of separate bathroom to avoid excess intake -Continue with routine EKG q2-3 days to assess QTc as further doses of antipsychotic medication are utilized 09/14/2024: Water restriction at 1500 mL. Water turned off in bathroom with supervised bathroom visits. Discontinue Abilify and start risperidone 1 mg at bedtime. Draw blood sodium and urine osmolality tomorrow morning. Zofran ODT as needed started. EKG scheduled for tomorrow to monitor QTc prolongation. Vit D 5000un daily started. 09/13/2024: The patient was admitted to the [facility] ([facility]) on q15 min checks (behavioral with suicide precautions) for safety. The patient will participate in group, recreational, and milieu therapies and will be offered additional individual and family sessions as clinically appropriate. - Repeat EKG. Draw labs for BMP, vitamin D, B12. Draw urinalysis, urine osmolality. - Start Abilify 10 mg at bedtime. - Continue Lorazepam 2mg PO HS Inventory Assets Strengths: adherent to treatment, future oriented Needs: improved insight, social supports Suicide Risk Level Suicide Risk Level: Moderate (q15 min suicide checks) (mood changes and psychosis with disorganization and reports depression but denies SI and feels safe in the hospital, feels able to ask for support) Risk Factors Assessment Male: No : Yes Do You Have Access To A Gun?: No Health Problems: Yes Mental Health Diagnoses: Yes Substance Use Disorders: No Previous Attempt: No Family History of Suicide: No Previous Psychiatric Hospitalization: Yes Hopelessness: No Protective Factors Assessment [employer] Beliefs: Yes : No Responsible for Young Children: No Employed: No Stable Relationships: No Supportive Family: No Good Rapport with Provider: Yes Absence of Any Risk Factors Above: No Interval History Identifying Information WILL PERSAUD is a 59-year-old F who currently lives in alone, has a history of psychosis, corine, and was admitted on 09/12/24 20:08 on a 302 involuntary commitment for psychosis, corine, polygenic polydipsia. Initially hospitalized for management of hyponatremia and stabilized; had NSTEMI and stabilized; now transferred to inpatient U. Chief Complaint "Tired and crying and sleeping all the time". Review of Systems Sleep Information Total Hours of Sleep: 4.25 Meal Information Percent Meal Consumed - Breakfast: 100 Percent Meal Consumed - Lunch: 100 Percent Meal Consumed - Dinner: 90 Nutrition Comment: states "I can't eat when I'm nervous". Subjective Subjective Patient was seen & assessed and interval progress reviewed with treatment team nursing. During the evening very irritable, paranoid and delusional about reading minds, that she's here on a secret mission. Believes she has kidney stones that need to be "flushed out" and states that is why she needs to drink excessive amounts of water. Of note she had CT abdomen/pelvis on 09/06/2024 that showed no kidney stones despite her differing beliefs about the imaging. She refused some of her medications last night including risperidone HS. Slept only 4.5 hours. Today she is pleasant, giving staff compliments, then crying on the phone, but did then get a shower. Bragging about her muscles and how much weight she can bench press. Somatic complaints, then asks us to call her by a different name. Tells me she was "nasty to her (referencing last evening) because of the depression". Reports "I can't even move from the depression, see how slowly I move" but then proceeds to lay on the ground and show me yoga stretches she can do. Reports some back pain, then nausea-offered zofran which she accepted. Reluctant to take risperidone but did this morning as she feels "it will just ma ke me sleep". Continues to report "my mind is just ridiculously slow" Physical Exam Psychiatric Orientation: alert, oriented to person and oriented to place Apperance: appropriately dressed Eye Contact: + fair eye contact Motor Behavior: no abnormal motor movements; no psychomotor retardation Speech: normal rate/rhythm/volume of speech Affect: + flat affect Mood: + depressed mood Thought Process: + tangential thought process and + looseness of associations Thought Content: + preoccupation, + paranoid and + delusions Suicidal Thoughts: denies suicidal thoughts Homicidal Thoughts: denies homicidal thoughts Hallucinations: + auditory hallucinations Insight: + severely impaired insight Judgment: + limited judgement Vital Signs (Past 24 Hours) Last Vital Signs Temp 36.4 C 09/16/24 09:15 Pulse 89 09/16/24 09:15 Resp 18 09/16/24 09:15 BP 110/74 09/16/24 09:15 Pulse Ox 96 09/16/24 09:15 O2 Del Method Room Air 09/16/24 09:15 Results & Data ([facility]) Laboratory Results Laboratory Results - last 24 hr 09/15/24 09/15/24 09/15/24 09:07 11:49 16:38 Sodium 139 D POC Glucose 215 H 94 09/15/24 09/16/24 21:16 08:36 Sodium POC Glucose 102 H 180 H Current Inpatient Medications Current Inpatient Medications: Current Inpatient Medications Acetaminophen (Acetaminophen 325 Mg Tab) 650 mg PO Q4H PRN PRN Reason: Headache or Minor Fever Stop: 10/12/24 14:31 Last Admin: 09/16/24 01:34 Dose: 650 mg Al Hydrox/Mg Hydrox/Simethicone (Aluminum/Magnesium Susp 30 Ml Udc) 30 ml PO Q4H PRN PRN Reason: GI Upset Stop: 10/12/24 14:31 Ascorbic Acid (Ascorbic Acid 500 Mg Tab) 1,000 mg PO QAM [facility] Stop: 10/13/24 13:44 Last Admin: 09/15/24 09:15 Dose: 1,000 mg Aspirin (Aspirin 81 Mg Chew) 81 mg PO DAILY [facility] Stop: 10/13/24 08:59 Last Admin: 09/15/24 09:15 Dose: 81 mg Atorvastatin Calcium (Atorvastatin 40 Mg Tab) 40 mg PO QAM [facility] Stop: 10/13/24 08:59 Last Admin: 09/15/24 09:15 Dose: 40 mg Bismuth Subsalicylate (Bismuth Subsalicylate 262 Mg Chew) 2 tab PO Q30M PRN PRN Reason: Loose Stool/Diarrhea Stop: 10/12/24 14:31 Hydrocortisone (Hydrocortisone 1% Oint 30 Gm Tube) 1 appln EXT BID PRN PRN Reason: Affected Skin Folds Stop: 10/12/24 21:58 Last Admin: 09/13/24 16:42 Dose: 1 appln Hydroxyzine HCl (Hydroxyzine Hcl 25 Mg Tab) 50 mg PO HSZ PRN PRN Reason: Insomnia Stop: 10/12/24 14:31 Hydroxyzine HCl (Hydroxyzine Hcl 25 Mg Tab) 25 mg PO Q4H PRN PRN Reason: Anxiety Stop: 10/12/24 14:31 Insulin Aspart (Insulin Aspart Per Unit Charge) 0 units SC ACHS [facility] Stop: 10/12/24 21:59 Last Admin: 09/15/24 21:51 Dose: Not Given Insulin Glargine (Lantus Per Unit Charge) 10 units SC HS [facility] Stop: 10/13/24 21:59 Last Admin: 09/15/24 21:51 Dose: Not Given Levothyroxine Sodium (Levothyroxine Sodium 25 Mcg Tablet) 25 mcg PO DAILYBB [facility] Stop: 10/13/24 07:59 Last Admin: 09/15/24 09:16 Dose: 25 mcg Lorazepam (Lorazepam 1 Mg Tab) 2 mg PO Q8H PRN PRN Reason: Anxiety/Agitation Stop: 10/12/24 14:34 Lorazepam (Lorazepam 1 Mg Tab) 2 mg PO HS [facility] Stop: 10/12/24 21:59 Last Admin: 09/15/24 21:50 Dose: Not Given Lorazepam (Lorazepam 2 Mg/1 Ml Vial) 2 mg IM Q8H PRN PRN Reason: Anxiety/Agitation Stop: 10/12/24 21:01 Magnesium Hydroxide (Magnesium Hydroxide Susp 30 Ml Udc) 30 ml PO DAILY PRN PRN Reason: Constipation Stop: 10/12/24 14:31 Metformin HCl (Metformin Hcl 500 Mg Tab) 1,000 mg PO BIDM [facility] Stop: 10/13/24 08:59 Last Admin: 09/15/24 17:54 Dose: 1,000 mg Metoprolol Succinate (Metoprolol Succ 50mg Ext Rel Tab) 50 mg PO BID [facility] Stop: 10/12/24 20:59 Last Admin: 09/15/24 21:20 Dose: 50 mg Miscellaneous Information (Pharmacy Glycemic Mgmt Consult) 1 each N/A UD PRN; Protocol PRN Reason: Consult Stop: 10/12/24 22:55 Olanzapine (Olanzapine 10 Mg/2.1 Ml Sdv) 10 mg IM DAILY PRN PRN Reason: medication over objection Stop: 10/16/24 08:59 Ondansetron HCl (Ondansetron 4 Mg Od Tab) 4 mg PO Q6H PRN PRN Reason: Nausea Stop: 10/14/24 11:27 Last Admin: 09/16/24 01:34 Dose: 4 mg Pantoprazole Sodium (Pantoprazole 40 Mg Tab) 40 mg PO QAM [facility] Stop: 10/13/24 08:59 Last Admin: 09/15/24 09:16 Dose: 40 mg Pregabalin (Pregabalin 75 Mg Cap) 75 mg PO BID [facility] Stop: 10/12/24 20:59 Last Admin: 09/15/24 21:28 Dose: 75 mg Risperidone (Risperidone 1 Mg Tablet) 1 mg PO HS [facility] Stop: 10/14/24 21:59 Last Admin: 09/15/24 21:51 Dose: Not Given Risperidone (Risperidone 0.5 Mg Tablet) 0.5 mg PO QAM [facility] Stop: 10/15/24 10:44 Last Admin: 09/15/24 11:18 Dose: 0.5 mg Sodium Chloride (Sodium Chloride 0.65% Na Soln 45 Ml ([place])) 1 - 2 sprays NA PRN PRN PRN Reason: Nasal Dryness/Congestion Stop: 10/12/24 14:31 Vitamin D (Cholecalciferol 125 Mcg (5,000 Units) Tab) [facility] Stop: 10/14/24 08:59 Last Admin: 09/15/24 09:16 Dose: 125 mcg
[2024-09-16] MEDS: risperiDONE 1 MG TABLET PO SCH (10:39)
[2024-09-16] MEDS: IBUPROFEN 600 MG TAB PO PRN (13:27)
--- NOTE | 2024-09-16 13:31 | Pharmacy Report ---
Pharmacy Glycemic Short Note 2 - Date of Service September 16, 2024 - Glycemic Short BSG Results (Last 24 hours): 09/15/24 09/15/24 09/16/24 16:38 21:16 08:36 POC Glucose 94 102 H 180 H 09/16/24 11:49 POC Glucose 203 H OUTPATIENT ANTIDIABETIC REGIMEN: * Basaglar 16 units SC HS * Novolog Sliding scale * Metformin 1 gm PO BID * Trulicity 4.5 mg SC weekly ASSESSMENT: 09/16 * Lashaun recieved a total of 17 units of insulin yesterday (all bolus insulin) with variable glycemic control. * Fasting BSG trending upward, 180 mg/dL today. Patient refused Lantus on 09/14 and 09/15. Spoke with 3S RN - unsure if patient will accept basal this evening. * Lunch BSG tends to be the highest of the day followed by BSG below goal at dinner. Will tighten carb coverage to help with lunchtime spike and loosen correction factor to avoid evening hypoglycemia. 09/13 * Total of 21 units of insulin given yesterday. 8 units were basal and 13 units were bolus. * Fasting BSG this morning was 160mg/dL and then increased to 205mg/dL at lunch time. The Lantus dose was increased to 10 units starting this evening. (still ~40% less than her home dose of basal insulin) * Parameters of the bolus insulin were tightened yesterday and this will be continued for now. Patient still continues on her home metformin dose bid. 09/12 * 59 y/o F admitted on inpatient unit around a week ago for hyponatremia, UTI and cardiac condition requiring cath in addition to lilly. She has history of bipolar disorder and schizophrenia, Type 2 diabetes requiring insulin. Transferred to [facility] last night for psychiatric evaluation. * On the inpatient unit, patient had been receiving 5 units of basal insulin and Novolog ACHS- correction factor with stress between 2 and 3 but looser carb ratio. * BSGs yesterday were [phone] mg/dl. She received 5 units of basal and 14 units of bolus insulins yesterday. * Fasting BSG today was 145 mg/dl. * Metformin home dose was added to her meds today. * Will hold off on AM basal and move it to HS to be similar to home regimen. Initiated today's basal dose at 50% of home dose. PLAN FOR INPATIENT GLYCEMIC CONTROL: * Metformin 1 gm PO BID * Basal insulin * Lantus 10 units SQ HS * Bolus insulin * NovoLog per scale ACHS or Q6hrs while NPO * Goal Range: Low 110 mg/dL - High 140 mg/dL * Correction Factor: 30 mg/dL/unit * Nutritional / Prandial insulin per carb ratio of 1 unit per 12 grams CHO consumed
[2024-09-16 15:10] LABS: Appearance Urine Cloudy (Clear); Bacteria Urine Automated 4+ (None Seen); Bilirubin Urine Negative (Negative); Blood Urine Negative (Negative); Calcium Oxalate Crystals Urine Present (None Prsent); Cast Urine Automated 0-2 /lpf (0-2); Color Urine Yellow; Epithelial Cell Urine Auto >20 /hpf (0-2); Glucose Urine UA Negative (Negative); Ketones Urine 1+ (Negative); Leukocyte Esterase Urine 2+ (Negative); Nitrite Urine Negative (Negative); Protein Urine Trace (Negative); Specific Gravity Urine 1.037 (1.000-1.030); Urobilinogen Urine Negative (Negative); WBC Urine Automated 21-50 /hpf (0-5)
[2024-09-16] MEDS: hydrOXYzine HCl 25 MG TAB PO PRN (16:11)
[2024-09-16 20:49] VITALS: O2SAT 97
[2024-09-16] MEDS ORDERED: DOCUSATE SODIUM 100 MG CAP PO SCH (21:00)
--- NOTE | 2024-09-17 09:12 | Psychiatric Progress Note ---
Date of Service September 17, 2024 Impression / Recommendations Impression WILL PERSAUD is a 59-year-old wm with a history of psychosis, lilly, and was admitted on 09/12/24 20:08 on a 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 Initially hospitalized for management of hyponatremia and stabilized; had NSTEMI and stabilized; now transferred to inpatient BHU. Currently on 303 involuntary commitment. Diagnostically consistent with unspecified psychosis-differential includes schizoaffective d/o vs schizophrenia vs BPAD current mixed episode. Substance-induced unlikely given negative UDS and history of past psychiatric hospitalizations. Also with psycho genic polydipsia. A: Psychosis continues, mood symptoms more consistent with mixed state given poor sleep, expansive speech with some grandiosity and paranoia but also reporting significant depression. Remains unclear how much of presentation could be due to lilly given collateral report of good baseline functioning at times but hx of severe decompensations that take months to improve during extended inpatient hospitalizations. Review of past scripts notable for hx Invega SWEET, Depakote ER 500mg HS, Pristiq, Wellbutrin and Vraylar over recent years. UA positive for bacteria, culture pending but she is now reporting symptoms of burning and hesitancy and pain so will start nitrofurantoin which she consents to. Given cooperation with fluid restriction will ease restriction slightly and recheck Na+ in two days. Overall, I spent a total of 55 minutes with this case including review of chart records, nursing report, review of lab work, direct evaluation of the patient at bedside, counseling the patient, multidisciplinary team meeting, orders, and documentation in the electronic health record and reviewing past medication scripts. (1) Lilly: (2) Psychotic disorder: (3) Psychogenic polydipsia: (4) Cardiomyopathy, dilated, nonischemic: (5) Prolonged QT interval: (6) Abnormal echocardiogram: Plan 09/17/2024: -Decrease lorazepam to 1mg HS due to her ongoing report of difficulty focusing and feeling sedated -Continue risperidone 1mg BID -Ease fluid restriction slightly, repeat Na+ in 2 days -Repeat EKG tomorrow to assess QTc -Start Macrobid 100mg BID for 5 days 09/16/2024: -Increase risperidone to 1mg qAM and olanzapine 10mg prn IM for medication over objection -Continue risperidone 1mg HS -Continue water restriction and use of separate bathroom to avoid excess intake -Will repeat EKG again on 09/18/2024 to assess QTc 09/15/2024: -Start risperidone 0.5mg QAM po and olanzapine 10mg prn IM for medication over objection -Continue risperidone 1mg HS -Continue water restriction and use of separate bathroom to avoid excess intake -Continue with routine EKG q2-3 days to assess QTc as further doses of ant ipsychotic medication are utilized 09/14/2024: Water restriction at 1500 mL. Water turned off in bathroom with supervised bathroom visits. Discontinue Abilify and start risperidone 1 mg at bedtime. Draw blood sodium and urine osmolality tomorrow morning. Zofran ODT as needed started. EKG scheduled for tomorrow to monitor QTc prolongation. Vit D 5000un daily started. 09/13/2024: The patient was admitted to the [facility] ([facility]) on q15 min checks (behavioral with suicide precautions) for safety. The patient will participate in group, recreational, and milieu therapies and will be offered additional individual and family sessions as clinically appropriate. - Repeat EKG. Draw labs for BMP, vitamin D, B12. Draw urinalysis, urine osmolality. - Start Abilify 10 mg at bedtime. - Continue Lorazepam 2mg PO HS Inventory Assets Strengths: adherent to treatment, future oriented Needs: improved insight, social supports Suicide Risk Level Suicide Risk Level: Moderate (q15 min suicide checks) (mood changes and psychosis with disorganization and reports depression but denies SI and feels safe in the hospital, feels able to ask for support) Risk Factors Assessment Male: No : Yes Do You Have Access To A Gun?: No Health Problems: Yes Mental Health Diagnoses: Yes Substance Use Disorders: No Previous Attempt: No Family History of Suicide: No Previous Psychiatric Hospitalization: Yes Hopelessness: No Protective Factors Assessment Scientology Beliefs: Yes : No Responsible for Young Children: No Employed: No Stable Relationships: No Supportive Family: No Good Rapport with Provider: Yes Absence of Any Risk Factors Above: No Interval History Identifying Information WILL PERSAUD is a 59-year-old F who currently lives in alone, has a history of psychosis, lilly, and was admitted on 09/12/24 20:08 on a 302 in voluntary commitment for psychosis, lilly, polygenic polydipsia. Initially hospitalized for management of hyponatremia and stabilized; had NSTEMI and stabilized; now transferred to inpatient BHU. Chief Complaint "I have a brain in my head but I'm not a braggart". Review of Systems Sleep Information Total Hours of Sleep: 6.30 Sleep Comments: HS scheduled meds Meal Information Percent Meal Consumed - Breakfast: 100 Percent Meal Consumed - Lunch: 100 Percent Meal Consumed - Dinner: 100 Nutrition Comment: states "I can't eat when I'm nervous". Subjective Subjective Patient was seen & assessed and interval progress reviewed with treatment team nursing and social work. She took all of her medications last night. Today reports feeling sedated. Concerns yesterday evening for urinary retention but no evidence on bladder scan and voided well this morning. Remains irritable with some staff. Reporting concerns of FBI monitoring the hospital and that I have been influenced by her ex-boyfriend to give her medications she doesn't need. Tangential discussing a variety of topics but including her depression and desire to start an antidepressant medication. Reviewed goal of seeing effect of risperidone, ensuring no QTc worsening and then option to consider other medications. Doesn't want me to discuss Gee telling me "you shouldn't talk about it" due to her sense he influences things. Endorses SI earlier today "but that's gone now". Ongoing issues "focusing". Reports pain and burning with urination, consents to starting medication for presumed UTI. Physical Exam Psychiatric Orientation: alert, oriented to person and oriented to place Apperance: appropriately dressed Eye Contact: + fair eye contact Motor Behavior: no abnormal motor movements; no psychomotor retardation Speech: + abnormal rate/rhythm/volume of speech (expansive, but can interrupt) Affect: + flat affect Mood: + depressed mood Thought Process: + tangential thought process and + looseness of associations Thought Content: + preoccupation, + paranoid and + delusions Suicidal Thoughts: denies suicidal thoughts Homicidal Thoughts: denies homicidal thoughts Hallucinations: + auditory hallucinations Insight: + severely impaired insight Judgment: + limited judgement Vital Signs (Past 24 Hours) Last Vital Signs Temp 36.4 C L 09/17/24 06:57 Pulse 94 H 09/17/24 06:58 Resp 18 09/17/24 06:57 BP 121/78 09/17/24 06:58 Pulse Ox 97 09/16/24 20:48 O2 Del Method Room Air 09/16/24 20:48 Results & Data (U) Laboratory Results Laboratory Results - last 24 hr 09/16/24 09/16/24 09/16/24 11:49 14:35 16:44 POC Glucose 203 H 85 Urine Color Yellow Urine Appearance Cloudy A Urine pH 5.0 Ur Specific [place] 1.037 H Urine Protein Trace H Urine Glucose (UA) Negative Urine Ketones 1+ H Urine Blood Negative Urine Nitrite Negative Urine Bilirubin Negative Urine Urobilinogen Negative Ur Leukocyte Esterase 2+ H Urine WBC (Auto) 21-50 H Urine RBC (Auto) 3-5 H U Hyaline Cast (Auto) 0-2 U Epithel Cells (Auto) >20 H Urine Bacteria (Auto) 4+ H Calcium Oxalate Crystal Present A 09/16/24 09/17/24 09/17/24 20:44 06:37 08:45 POC Glucose 107 H 182 H 211 H Urine Color Urine Appearance Urine pH Ur Specific [place] Urine Protein Urine Glucose (UA) Urine Ketones Urine Blood Urine Nitrite Urine Bilirubin Urine Urobilinogen Ur Leukocyte Esterase Urine WBC (Auto) Urine RBC (Auto) U Hyaline Cast (Auto) U Epithel Cells (Auto) Urine Bacteria (Auto) Calcium Oxalate Crystal Current Inpatient Medications Current Inpatient Medications: Current Inpatient Medications Acetaminophen (Acetaminophen 325 Mg Tab) 650 mg PO Q4H PRN PRN Reason: Headache or Minor Fever Stop: 10/12/24 14:31 Last Admin: 09/16/24 17:51 Dose: 650 mg Al Hydrox/Mg Hydrox/Simethicone (Aluminum/Magnesium Susp 30 Ml Udc) 30 ml PO Q4H PRN PRN Reason: GI Upset Stop: 10/12/24 14:31 Ascorbic Acid (Ascorbic Acid 500 Mg Tab) 1,000 mg PO QAM [facility] Stop: 10/13/24 13:44 Last Admin: 09/17/24 08:55 Dose: 1,000 mg Aspirin (Aspirin 81 Mg Chew) 81 mg PO DAILY [facility] Stop: 10/13/24 08:59 Last Admin: 09/17/24 08:55 Dose: 81 mg Atorvastatin Calcium (Atorvastatin 40 Mg Tab) 40 mg PO QAM [facility] Stop: 10/13/24 08:59 Last Admin: 09/17/24 08:56 Dose: 40 mg Bismuth Subsalicylate (Bismuth Subsalicylate 262 Mg Chew) 2 tab PO Q30M PRN PRN Reason: Loose Stool/Diarrhea Stop: 10/12/24 14:31 Docusate Sodium (Docusate Sodium 100 Mg Cap) 100 mg PO BID PRN PRN Reason: constipation Stop: 10/16/24 20:59 Hydrocortisone (Hydrocortisone 1% Oint 30 Gm Tube) 1 appln EXT BID PRN PRN Reason: Affected Skin Folds Stop: 10/12/24 21:58 Last Admin: 09/13/24 16:42 Dose: 1 appln Hydroxyzine HCl (Hydroxyzine Hcl 25 Mg Tab) 50 mg PO HSZ PRN PRN Reason: Insomnia Stop: 10/12/24 14:31 Hydroxyzine HCl (Hydroxyzine Hcl 25 Mg Tab) 25 mg PO Q4H PRN PRN Reason: Anxiety Stop: 10/12/24 14:31 Last Admin: 09/16/24 16:11 Dose: 25 mg Ibuprofen (Ibuprofen 600 Mg Tab) 600 mg PO Q8H PRN PRN Reason: back pain Stop: 10/16/24 10:59 Last Admin: 09/16/24 21:03 Dose: 600 mg Insulin Aspart (Insulin Aspart Per Unit Charge) 0 units SC ACHS [facility] Stop: 10/12/24 21:59 Last Admin: 09/16/24 20:50 Dose: Not Given Insulin Glargine (Lantus Per Unit Charge) 10 units SC HS [facility] Stop: 10/13/24 21:59 Last Admin: 09/16/24 20:54 Dose: 10 units Levothyroxine Sodium (Levothyroxine Sodium 25 Mcg Tablet) 25 mcg PO DAILYBB [facility] Stop: 10/13/24 07:59 Last Admin: 09/17/24 08:55 Dose: 25 mcg Lorazepam (Lorazepam 1 Mg Tab) 2 mg PO Q8H PRN PRN Reason: Anxiety/Agitation Stop: 10/12/24 14:34 Lorazepam (Lorazepam 1 Mg Tab) 2 mg PO HS [facility]ONEY Stop: 10/12/24 21:59 Last Admin: 09/16/24 20:54 Dose: 2 mg Lorazepam (Lorazepam 2 Mg/1 Ml Vial) 2 mg IM Q8H PRN PRN Reason: Anxiety/Agitation Stop: 10/12/24 21:01 Magnesium Hydroxide (Magnesium Hydroxide Susp 30 Ml Udc) 30 ml PO DAILY PRN PRN Reason: Constipation Stop: 10/12/24 14:31 Metformin HCl (Metformin Hcl 500 Mg Tab) 1,000 mg PO BIDM [facility] Stop: 10/13/24 08:59 Last Admin: 09/17/24 08:56 Dose: 1,000 mg Metoprolol Succinate (Metoprolol Succ 50mg Ext Rel Tab) 50 mg PO BID [facility] Stop: 10/12/24 20:59 Last Admin: 09/16/24 20:49 Dose: Not Given Miscellaneous Information (Pharmacy Glycemic Mgmt Consult) 1 each N/A UD PRN; Protocol PRN Reason: Consult Stop: 10/12/24 22:55 Olanzapine (Olanzapine 10 Mg/2.1 Ml Sdv) 10 mg IM DAILY PRN PRN Reason: medication over objection Stop: 10/16/24 08:59 Ondansetron HCl (Ondansetron 4 Mg Od Tab) 4 mg PO Q6H PRN PRN Reason: Nausea Stop: 10/14/24 11:27 Last Admin: 09/16/24 11:05 Dose: 4 mg Pantoprazole Sodium ([facility]ole 40 Mg Tab) [facility] Stop: 10/13/24 08:59 Last Admin: 09/17/24 08:57 Dose: 40 mg Pregabalin (Pregabalin 75 Mg Cap) 75 mg PO BID [facility] Stop: 10/12/24 20:59 Last Admin: 09/17/24 08:58 Dose: 75 mg Risperidone (Risperidone 1 Mg Tablet) 1 mg PO HS [facility] Stop: 10/14/24 21:59 Last Admin: 09/16/24 20:54 Dose: 1 mg Risperidone (Risperidone 1 Mg Tablet) 1 mg PO QAM [facility] Stop: 10/16/24 09:59 Last Admin: 09/17/24 08:58 Dose: 1 mg Sodium Chloride (Sodium Chloride 0.65% Na Soln 45 Ml (Falls)) 1 - 2 sprays NA PRN PRN PRN Reason: Nasal Dryness/Congestion Stop: 10/12/24 14:31 Vitamin D (Cholecalciferol 125 Mcg (5,000 Units) Tab) 125 mcg PO QAM [facility] Stop: 10/14/24 08:59 Last Admin: 09/17/24 08:56 Dose: 125 mcg
--- NOTE | 2024-09-17 12:46 | Pharmacy Report ---
Pharmacy Glycemic Short Note 2 - Date of Service September 17, 2024 - Glycemic Short BSG Results (Last 24 hours): 09/16/24 09/16/24 09/17/24 16:44 20:44 06:37 POC Glucose 85 107 H 182 H 09/17/24 09/17/24 08:45 12:26 POC Glucose 211 H 70 OUTPATIENT ANTIDIABETIC REGIMEN: * Basaglar 16 units SC HS * Novolog Sliding scale * Metformin 1 gm PO BID * Trulicity 4.5 mg SC weekly HbA1c: 7.1% (09/10/24) ASSESSMENT: 09/17: * Blood sugars continue to be relatively labile * Increased concern for hypoglycemia given overall downward trend last evening and today * Will prioritize hypoglycemia limitation by loosening Novolog parameters and decreasing basal * Continue metformin 09/16 * Lashaun recieved a total of 17 units of insulin yesterday (all bolus insulin) with variable glycemic control. * Fasting BSG trending upward, 180 mg/dL today. Patient refused Lantus on 09/14 and 09/15. Spoke with 3S RN - unsure if patient will accept basal this evening. * Lunch BSG tends to be the highest of the day followed by BSG below goal at dinner. Will tighten carb coverage to help with lunchtime spike and loosen correction factor to avoid evening hypoglycemia. 09/13 * Total of 21 units of insulin given yesterday. 8 units were basal and 13 units were bolus. * Fasting BSG this morning was 160mg/dL and then increased to 205mg/dL at lunch time. The Lantus dose was increased to 10 units starting this evening. (still ~40% less than her home dose of basal insulin) * Parameters of the bolus insulin were tightened yesterday and this will be continued for now. Patient still continues on her home metformin dose bid. 09/12 * 59 y/o F admitted on inpatient unit around a week ago for hyponatremia, UTI and cardiac condition requiring cath in addition to lilly. She has history of bipolar disorder and schizophrenia, Type 2 diabetes requiring insulin. Transferred to [facility] last night for psychiatric evaluation. * On the inpatient unit, patient had been receiving 5 units of basal insulin and Novolog ACHS- correction factor with stress between 2 and 3 but looser carb ratio. * BSGs yesterday were [phone] mg/dl. She received 5 units of basal and 14 units of bolus insulins yesterday. * Fasting BSG today was 145 mg/dl. * Metformin home dose was added to her meds today. * Will hold off on AM basal and move it to HS to be similar to home regimen. Initiated today's basal dose at 50% of home dose. PLAN FOR INPATIENT GLYCEMIC CONTROL: * Metformin 1 gm PO BID * Basal insulin * Lantus 5 units SQ HS * Bolus insulin * NovoLog per scale ACHS or Q6hrs while NPO * Goal Range: Low 110 mg/dL - High 140 mg/dL * Correction Factor: 35 mg/dL/unit * Nutritional / Prandial insulin per carb ratio of 1 unit per 12 grams CHO consumed
[2024-09-17] MEDS: MAGNESIUM HYDROXIDE SUSP 30 ML UDC PO PRN (13:55)
[2024-09-17] MEDS: NITROFURANTOIN MONOHYDRATE 100 MG CAP PO SCH (21:52)
[2024-09-17] MEDS: LANTUS PER UNIT CHARGE SC SCH (22:06)
[2024-09-17] MEDS: LORazepam 1 MG TAB PO SCH (22:06)
--- NOTE | 2024-09-18 09:07 | Psychiatric Progress Note ---
Date of Service September 18, 2024 Impression / Recommendations Impression WILL PERSAUD is a 59-year-old wm with a history of psychosis, lilly, and was admitted on 09/12/24 20:08 on a 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 Initially hospitalized for management of hyponatremia and stabilized; had NSTEMI and stabilized; now transferred to inpatient BHU. Currently on 303 involuntary commitment. Diagnostically consistent with unspecified psychosis-differential includes schizoaffective d/o vs schizophrenia vs BPAD current mixed episode. Substance-induced unlikely given negative UDS and history of past psychiatric hospitalizations. Also with psycho genic polydipsia. A: Ongoing psychosis and mood lability with poor sleep, grandiosity, hyperactive, expansive speech and very poor insight. She continues to be focused on need for depression medication and is resistant to medications for mood stabilization and management of psychosis as she doesn't like that these slow her down. Tolerating risperidone so far per my observations as no evidence for EPS or other side effects. Will continue with risperidone given goal of eventual transition to SWEET since she has taken this in the past, reportedly with periods of good mood stability while on medications. Repeat EKG reviewed and QTc remains <500ms even with addition of risperidone which is reassuring for continued use. Will increase lorazpeam at HS given worsened sleep last night and increased symptoms of illly today. Got extra dose of risperidone this morning due to level of psychosis and lilly. Now on mouth checks and ODT risperidone due to multiple observed efforts to divert medications. MNPR due to psychosis and inability to tolerate a roommate Overall, I spent a total of 45 minutes with this case including review of chart records, nursing report, review of lab work, direct evaluation of the patient at bedside, counseling the patient, multidisciplinary team meeting, orders, and documentation in the electronic health record and reviewing past medication scripts. (1) Lilly: (2) Psychotic disorder: (3) Psychogenic polydipsia: (4) Cardiomyopathy, dilated, nonischemic: (5) Prolonged QT interval: (6) Abnormal echocardiogram: Plan 09/18/2024: -Increase lorazepam back to 2mg HS due to poor sleep and increased symptoms of lilly today -Switch to risperidone 1mg BID ODT for improved adherence -Mouth checks for medication adherence 09/17/2024: -Decrease lorazepam to 1mg HS due to her ongoing report of difficulty focusing and feeling sedated -Continue risperidone 1mg BID -Ease fluid restriction slightly, repeat Na+ in 2 days -Repeat EKG tomorrow to assess QTc -Start Macrobid 100mg BID for 5 days 09/16/2024: -Increase risperidone to 1mg qAM and olanzapine 10mg prn IM for medication over objection -Continue risperidone 1mg HS -Continue water restriction and use of separate bathroom to avoid excess intake -Will repeat EKG again on 09/18/2024 to assess QTc 09/15/2024: -Start risperidone 0.5mg QAM po and olanzapine 10mg prn IM for medication over objection -Continue risperidone 1mg HS -Continue water restriction and use of separate bathroom to avoid excess intake -Continue with routine EKG q2-3 days to assess QTc as further doses of antipsychotic medication are utilized 09/14/2024: Water restriction at 1500 mL. Water turned off in bathroom with supervised bathroom visits. Discontinue Abilify and start risperidone 1 mg at bedtime. Draw blood sodium and urine osmolality tomorrow morning. Zofran ODT as needed started. EKG scheduled for tomorrow to monitor QTc prolongation. Vit D 5000un daily started. 09/13/2024: The patient was admitted to the [facility] ([facility] unit) on q15 min checks (behavioral with suicide precautions) for safety. The patient will participate in group, recreational, and milieu therapies and will be offered additional individual and family sessions as clinically appropriate. - Repeat EKG. Draw labs for BMP, vitamin D, B12. Draw urinalysis, urine osmolality. - Start Abilify 10 mg at bedtime. - Continue Lorazepam 2mg PO HS Inventory Assets Strengths: adherent to treatment, future oriented Needs: improved insight, social supports Suicide Risk Level Suicide Risk Level: Moderate (q15 min suicide checks) (mood changes and psychosis with disorganization and reports depression but denies SI and feels safe in the hospital, feels able to ask for support) Risk Factors Assessment Male: No : Yes Do You Have Access To A Gun?: No Health Problems: Yes Mental Health Diagnoses: Yes Substance Use Disorders: No Previous Attempt: No Family History of Suicide: No Previous Psychiatric Hospitalization: Yes Hopelessness: No Protective Factors Assessment Jehovah'S Witness Beliefs: Yes : No Responsible for Young Children: No Employed: No Stable Relationships: No Supportive Family: No Good Rapport with Provider: Yes Absence of Any Risk Factors Above: No Interval History Identifying Information WILL PERSAUD is a 59-year-old F who currently lives in alone, has a history of psychosis, lilly, and was admitted on 09/12/24 20:08 on a 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 Initially hospitalized for management of hyponatremia and stabilized; had NSTEMI and stabilized; now transferred to inpatient U. Chief Complaint "I've just been in my room, I've just been showering, that's all". Review of Systems Sleep Information Total Hours of Sleep: 4.75 Sleep Comments: HS scheduled meds Meal Information Percent Meal Consumed - Breakfast: 100 Percent Meal Consumed - Lunch: 100 Percent Meal Consumed - Dinner: 100 Nutrition Comment: Subjective Subjective Patient was seen & assessed and interval progress reviewed with treatment team nursing and social work. Attending some groups but off topic. Nursing reports ongoing disorganization. Oddly racially focused at times. Paranoid in group about Gee. Today reports having a seizure overnight and someone making her remove her dentures and today can't find them and so thinks someone stole them. Continues to complain of being oversedated but was noted to be restless and awake much of the night. Ongoing somatic focus. Has been adherent with fluid restriction. Today has been intrusive with peers and making racially targeted comments at times. Found her dentures under her bed mid-morning after reporting various concerns that staff took them while "seeing me have a seizure". When I ask her about this she states "no, I wasn't paranoid, I thought I was having a seizure" and expands "I got confused". She continues to minimize any concerning behaviors or observations about her mood or decreased sleep with contradictory claims "no, I slept perfectly". She has started to make statements that this provider and others have "lilly" or "psychosis" and that we should be the ones in treatment. Ongoing statements about Gee targeting her and influencing her care here. Noted to be hiding pills in her pocket in an attempt not to take them. Dancing in the group room, very talkative with frequent requests. Alienates herself from peers due to bizarre comments she makes and at times rude and sexually inappropriate or accusatory claims. For example accused a peer of breaking her dentures before she found them in her room. Physical Exam Psychiatric Orientation: alert, oriented to person and oriented to place Apperance: appropriately dressed Eye Contact: + fair eye contact Motor Behavior: no abnormal motor movements; no psychomotor retardation Speech: + abnormal rate/rhythm/volume of speech (expansive, rapid) Affect: + labile affect Mood: + depressed mood and + irritable mood Thought Process: + tangential thought process and + looseness of associations Thought Content: + preoccupation, + paranoid and + delusions Suicidal Thoughts: denies suicidal thoughts Homicidal Thoughts: denies homicidal thoughts Hallucinations: + auditory hallucinations Insight: + severely impaired insight Judgment: + limited judgement Vital Signs (Past 24 Hours) Last Vital Signs Temp 36.6 C 09/18/24 06:50 Pulse 92 H 09/18/24 06:51 Resp 16 09/18/24 06:50 BP 114/77 09/18/24 06:51 Pulse Ox 97 09/16/24 20:48 O2 Del Method Room Air 09/16/24 20:48 Results & Data ([facility]) Laboratory Results Laboratory Results - last 24 hr 09/17/24 09/17/24 09/17/24 12:26 17:03 21:57 POC Glucose 70 143 H 160 H 09/18/24 08:46 POC Glucose 178 H Current Inpatient Medications Current Inpatient Medications: Current Inpatient Medications Acetaminophen (Acetaminophen 325 Mg Tab) 650 mg PO Q4H PRN PRN Reason: Headache or Minor Fever Stop: 10/12/24 14:31 Last Admin: 09/18/24 03:03 Dose: 650 mg Al Hydrox/Mg Hydrox/Simethicone (Aluminum/Magnesium Susp 30 Ml Udc) 30 ml PO Q4H PRN PRN Reason: GI Upset Stop: 10/12/24 14:31 Ascorbic Acid (Ascorbic Acid 500 Mg Tab) 1,000 mg PO QAM [facility] Stop: 10/13/24 13:44 Last Admin: 09/17/24 08:55 Dose: 1,000 mg Aspirin (Aspirin 81 Mg Chew) 81 mg PO DAILY [facility] Stop: 10/13/24 08:59 Last Admin: 09/17/24 08:55 Dose: 81 mg Atorvastatin Calcium (Atorvastatin 40 Mg Tab) 40 mg PO QAM [facility] Stop: 10/13/24 08:59 Last Admin: 09/17/24 08:56 Dose: 40 mg Bismuth Subsalicylate (Bismuth Subsalicylate 262 Mg Chew) 2 tab PO Q30M PRN PRN Reason: Loose Stool/Diarrhea Stop: 10/12/24 14:31 Docusate Sodium (Docusate Sodium 100 Mg Cap) 100 mg PO BID PRN PRN Reason: constipation Stop: 10/16/24 20:59 Hydrocortisone (Hydrocortisone 1% Oint 30 Gm Tube) 1 appln EXT BID PRN PRN Reason: Affected Skin Folds Stop: 10/12/24 21:58 Last Admin: 09/13/24 16:42 Dose: 1 appln Hydroxyzine HCl (Hydroxyzine Hcl 25 Mg Tab) 50 mg PO HSZ PRN PRN Reason: Insomnia Stop: 10/12/24 14:31 Hydroxyzine HCl (Hydroxyzine Hcl 25 Mg Tab) 25 mg PO Q4H PRN PRN Reason: Anxiety Stop: 10/12/24 14:31 Last Admin: 09/17/24 19:39 Dose: 25 mg Ibuprofen (Ibuprofen 600 Mg Tab) 600 mg PO Q8H PRN PRN Reason: back pain Stop: 10/16/24 10:59 Last Admin: 09/17/24 18:18 Dose: 600 mg Insulin Aspart (Insulin Aspart Per Unit Charge) 0 units SC [facility] Stop: 10/12/24 21:59 Last Admin: 09/17/24 22:07 Dose: 2 units Insulin Glargine (Lantus Per Unit Charge) 5 units SC HS TONEY Stop: 10/13/24 21:59 Last Admin: 09/17/24 22:06 Dose: 5 units Levothyroxine Sodium (Levothyroxine Sodium 25 Mcg Tablet) 25 mcg PO DAILYBB TONEY Stop: 10/13/24 07:59 Last Admin: 09/17/24 08:55 Dose: 25 mcg Lorazepam (Lorazepam 1 Mg Tab) 2 mg PO Q8H PRN PRN Reason: Anxiety/Agitation Stop: 10/12/24 14:34 Lorazepam (Lorazepam 2 Mg/1 Ml Vial) 2 mg IM Q8H PRN PRN Reason: Anxiety/Agitation Stop: 10/12/24 21:01 Lorazepam (Lorazepam 1 Mg Tab) 1 mg PO HS [facility] Stop: 10/17/24 21:59 Last Admin: 09/17/24 22:06 Dose: 1 mg Magnesium Hydroxide (Magnesium Hydroxide Susp 30 Ml Udc) 30 ml PO DAILY PRN PRN Reason: Constipation Stop: 10/12/24 14:31 Last Admin: 09/17/24 13:55 Dose: 30 ml Metformin HCl (Metformin Hcl 500 Mg Tab) 1,000 mg PO BIDM [facility] Stop: 10/13/24 08:59 Last Admin: 09/17/24 17:24 Dose: 1,000 mg Metoprolol Succinate (Metoprolol Succ 50mg Ext Rel Tab) 50 mg PO BID TONEY Stop: 10/12/24 20:59 Last Admin: 09/17/24 21:53 Dose: 50 mg Miscellaneous Information (Pharmacy Glycemic Mgmt Consult) 1 each N/A UD PRN; Protocol PRN Reason: Consult Stop: 10/12/24 22:55 Nitrofurantoin Macrocrystals (Nitrofurantoin Monohydrate 100 Mg Cap) 100 mg PO BID TONEY Stop: 09/22/24 20:59 Last Admin: 09/17/24 21:52 Dose: 100 mg Olanzapine (Olanzapine 10 Mg/2.1 Ml Sdv) 10 mg IM DAILY PRN PRN Reason: medication over objection Stop: 10/16/24 08:59 Ondansetron HCl (Ondansetron 4 Mg Od Tab) 4 mg PO Q6H PRN PRN Reason: Nausea Stop: 10/14/24 11:27 Last Admin: 09/18/24 02:57 Dose: 4 mg Pantoprazole Sodium (Pantoprazole 40 Mg Tab) 40 mg PO QAM TONEY Stop: 10/13/24 08:59 Last Admin: 09/17/24 08:57 Dose: 40 mg Pregabalin (Pregabalin 75 Mg Cap) 75 mg PO BID TONEY Stop: 10/12/24 20:59 Last Admin: 09/17/24 22:06 Dose: 75 mg Risperidone (Risperidone 1 Mg Tablet) 1 mg PO HS [facility] Stop: 10/14/24 21:59 Last Admin: 09/17/24 21:51 Dose: 1 mg Risperidone (Risperidone 1 Mg Tablet) 1 mg PO QAM [facility]ONE[facility] Stop: 10/16/24 09:59 Last Admin: 09/17/24 08:58 Dose: 1 mg Sodium Chloride (Sodium Chloride 0.65% Na Soln 45 Ml ([place])) 1 - 2 sprays NA PRN PRN PRN Reason: Nasal Dryness/Congestion Stop: 10/12/24 14:31 Vitamin D (Cholecalciferol 125 Mcg (5,000 Units) Tab) [facility] [place] Stop: 10/14/24 08:59 Last Admin: 09/17/24 08:56 Dose: 125 mcg
[2024-09-18] MEDS: risperiDONE 1 MG TABLET PO STA (11:09)
[2024-09-18] MEDS: LORazepam 0.5 MG TAB PO STA (16:59)
--- NOTE | 2024-09-18 18:18 | Electrocardiogram Report ---
Test Reason : Blood Pressure : */* mmHG Vent. Rate : 84 BPM Atrial Rate : 84 BPM P-R Int : 160 ms QRS Dur : 92 ms QT Int : 404 ms P-R-T Axes : 66 62 85 degrees QTcB Int : 477 ms Normal sinus rhythm T wave abnormality, consider anterolateral ischemia Prolonged QT Abnormal ECG When compared with ECG of 15-Sep-2024 10:01, T wave inversion more evident in Lateral leads Confirmed by Bogdan Owen ([id number]) on 09/18/2024 6:17:53 PM Referred By: Bill Sanford Confirmed By: Bogdan Owen
[2024-09-18] MEDS: LORazepam 1 MG TAB PO SCH (21:17)
--- NOTE | 2024-09-19 08:39 | Pharmacy Report ---
Pharmacy Glycemic Short Note 2 - Date of Service September 19, 2024 - Glycemic Short BSG Results (Last 24 hours): 09/18/24 09/18/24 09/18/24 08:46 12:44 17:26 POC Glucose 178 H 102 H 115 H 09/18/24 09/19/24 09/19/24 21:23 05:12 07:46 POC Glucose 131 H 128 H 133 H OUTPATIENT ANTIDIABETIC REGIMEN: * Basaglar 16 units SC HS * Novolog Sliding scale * Metformin 1 gm PO BID * Trulicity 4.5 mg SC weekly HbA1c: 7.1% (09/10/24) ASSESSMENT: 09/19: * Blood sugars reasonably well-controlled yesterday, ranging 102-178 mg/dL * Fasting blood sugar of 133 mg/dL this morning, which is improved * Do not anticipate any changes to current glycemic regimen 09/17: * Blood sugars continue to be relatively labile * Increased concern for hypoglycemia given overall downward trend last evening and today * Will prioritize hypoglycemia limitation by loosening Novolog parameters and decreasing basal * Continue metformin 09/16 * Lashaun recieved a total of 17 units of insulin yesterday (all bolus insulin) with variable glycemic control. * Fasting BSG trending upward, 180 mg/dL today. Patient refused Lantus on 09/14 and 09/15. Spoke with 3S RN - unsure if patient will accept basal this ev ening. * Lunch BSG tends to be the highest of the day followed by BSG below goal at dinner. Will tighten carb coverage to help with lunchtime spike and loosen correction factor to avoid evening hypoglycemia. 09/13 * Total of 21 units of insulin given yesterday. 8 units were basal and 13 units were bolus. * Fasting BSG this morning was 160mg/dL and then increased to 205mg/dL at lunch time. The Lantus dose was increased to 10 units starting this evening. (still ~40% less than her home dose of basal insulin) * Parameters of the bolus insulin were tightened yesterday and this will be continued for now. Patient still continues on her home metformin dose bid. 09/12 * 59 y/o F admitted on inpatient unit around a week ago for hyponatremia, UTI and cardiac condition requiring cath in addition to lilly. She has history of bipolar disorder and schizophrenia, Type 2 diabetes requiring insulin. Transferred to BHU last night for psychiatric evaluation. * On the inpatient unit, patient had been receiving 5 units of basal insulin and Novolog ACHS- correction factor with stress between 2 and 3 but looser carb ratio. * BSGs yesterday were [phone] mg/dl. She received 5 units of basal and 14 units of bolus insulins yesterday. * Fasting BSG today was 145 mg/dl. * Metformin home dose was added to her meds today. * Will hold off on AM basal and move it to HS to be similar to home regimen. In itiated today's basal dose at 50% of home dose. PLAN FOR INPATIENT GLYCEMIC CONTROL: * Metformin 1 gm PO BID * Basal insulin * Lantus 5 units SQ HS * Bolus insulin * NovoLog per scale ACHS or Q6hrs while NPO * Goal Range: Low 110 mg/dL - High 140 mg/dL * Correction Factor: 35 mg/dL/unit * Nutritional / Prandial insulin per carb ratio of 1 unit per 12 grams CHO consumed
--- NOTE | 2024-09-19 09:11 | Psychiatric Progress Note ---
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 Initially hospitalized for management of hyponatremia and stabilized; had NSTEMI and stabilized; now transferred to inpatient BHU. Currently on 303 involuntary commitment. Diagnostically consistent with unspecified psychosis-differential includes schizoaffective d/o vs schizophrenia vs BPAD current mixed episode. Substance-induced unlikely given negative UDS and history of past psychiatric hospitalizations. Also with psycho genic polydipsia. A: Ongoing psychosis and mood lability. Sleep improved a bit overnight with higher dose of ativan and ongoing use of risperidone. She's been utilizing prn ativan and finding this helpful, overall less intrusive today and better able to participate and be around peers. Na+ within normal range so will give back access to water in her bathroom. Will continue with fluid restriction for now. MNPR due to psychosis and inability to tolerate a roommate Overall, I spent a total of 40 minutes with this case including review of chart records, nursing report, review of lab work, direct evaluation of the patient at bedside, counseling the patient, multidisciplinary team meeting, orders, and documentation in the electronic health record and reviewing past medication scripts. (1) Lilly: (2) Psychotic disorder: (3) Psychogenic polydipsia: (4) Cardiomyopathy, dilated, nonischemic: (5) Prolonged QT interval: (6) Abnormal echocardiogram: Plan 09/19/2024: -Lorazepam 0.5mg BID prn for agitation/mood lability 09/18/2024: -Increase lorazepam back to 2mg HS due to poor sleep and increased symptoms of lilly today -Switch to risperidone 1mg BID ODT for improved adherence -Mouth checks for medication adherence 09/17/2024: -Decrease lorazepam to 1mg HS due to her ongoing report of difficulty focusing and feeling sedated -Continue risperidone 1mg BID -Ease fluid restriction slightly, repeat Na+ in 2 days -Repeat EKG tomorrow to assess QTc -Start Macrobid 100mg BID for 5 days 09/16/2024: -Increase risperidone to 1mg qAM and olanzapine 10mg prn IM for medication over objection -Continue risperidone 1mg HS -Continue water restriction and use of separate bathroom to avoid excess intake -Will repeat EKG again on 09/18/2024 to assess QTc 09/15/2024: -Start risperidone 0.5mg QAM po and olanzapine 10mg prn IM for medication over objection -Continue risperidone 1mg HS -Continue water restriction and use of separate bathroom to avoid excess intake -Continue with routine EKG q2-3 days to assess QTc as further doses of antipsychotic medication are utilized 09/14/2024: Water restriction at 1500 mL. Water turned off in bathroom with supervised bathroom visits. Discontinue Abilify and start risperidone 1 mg at bedtime. Draw blood sodium and urine osmolality tomorrow morning. Zofran ODT as needed started. EKG scheduled for tomorrow to monitor QTc prolongation. Vit D 5000un daily started. 09/13/2024: The patient was admitted to the [facility] ([facility] health unit) on q15 min checks (behavioral with suicide precautions) for safety. The patient will participate in group, recreational, and milieu therapies and will be offered additional individual and family sessions as clinically appropriate. - Repeat EKG. Draw labs for BMP, vitamin D, B12. Draw urinalysis, urine osmolality. - Start Abilify 10 mg at bedtime. - Continue Lorazepam 2mg PO HS Inventory Assets Strengths: adherent to treatment, future oriented Needs: improved insight, social supports Suicide Risk Level Suicide Risk Level: Moderate (q15 min suicide checks) (mood changes and psychosis with disorganization and reports depression but denies SI and feels safe in the hospital, feels able to ask for support) Risk Factors Assessment Male: No : Yes Do You Have Access To A Gun?: No Health Problems: Yes Mental Health Diagnoses: Yes Substance Use Disorders: No Previous Attempt: No Family History of Suicide: No Previous Psychiatric Hospitalization: Yes Hopelessness: No Protective Factors Assessment Oriental Orthodox Beliefs: Yes : No Responsible for Young Children: No Employed: No Stable Relationships: No Supportive Family: No Good Rapport with Provider: Yes Absence of Any Risk Factors Above: No Interval History Identifying Information WILL PERSAUD is a 59-year-old F who currently lives in alone, has a history of psychosis, illly, and was admitted on 09/12/24 20:08 on a 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 Initially hospitalized for management of hyponatremia and stabilized; had NSTEMI and stabilized; now transferred to inpatient BHU. Chief Complaint "I think I need to use a walker". Review of Systems Sleep Information Total Hours of Sleep: 7 Sleep Comments: HS scheduled meds Meal Information Percent Meal Consumed - Breakfast: 50 Percent Meal Consumed - Lunch: 75 Percent Meal Consumed - Dinner: 100 Subjective Subjective Patient was seen & assessed and interval progress reviewed with treatment team nursing and social work. Significant emotional lability-sad then dancing then angry. Took a prn ativan yesterday afternoon and then mood was less irritable and attended group. Some behavioral disorganization, urinated in a bedside basin overnight and then spilled it but took a shower and accepted staff assistance. Today reports her mood remains depressed and "very low, very slow" though is noted to talk expansively and can be difficult to interrupt. References concerns that ex-boyfriend is the reason she got label of bipolar disorder in the past and fixated on desire to start antidepressant medication like Wellbutrin. Reviewed my concerns given potential for current mixed state and that we can revisit this as her sleep stabilizes. She makes odd statements at times and suddenly becomes tearful during our conversation and tells me that she thinks she needs to start using a walker. Does agree to sign PIPPA for past psychiatric hospitalization at [place] as she wants to prove to me that she only has depression. Tells me "I wasn't ill" when she came to the hospital and feels this admission is a mistake. Validated her frustrations and concerns. Physical Exam Psychiatric Orientation: alert, oriented to person and oriented to place Apperance: appropriately dressed Eye Contact: + fair eye contact Motor Behavior: no abnormal motor movements; no psychomotor retardation Speech: + abnormal rate/rhythm/volume of speech (expansive, rapid) Affect: euthymic affect, + tearful affect, + labile affect and + irritable affect Mood: + depressed mood, + anxious mood and + irritable mood Thought Process: + tangential thought process and + looseness of associations Thought Content: + preoccupation, + paranoid and + delusions Suicidal Thoughts: denies suicidal plan; + reports suicidal thoughts (reports she has these intermittently) Homicidal Thoughts: denies homicidal thoughts Hallucinations: no auditory hallucinations (not observed responding to internal stimuli today) Insight: + severely impaired insight Judgment: + limited judgement Vital Signs (Past 24 Hours) Last Vital Signs Temp 36.2 C L 09/19/24 06:00 Pulse 84 09/19/24 06:00 Resp 16 09/19/24 06:00 BP 102/67 09/19/24 06:00 Pulse Ox 97 09/16/24 20:48 O2 Del Method Room Air 09/16/24 20:48 Results & Data ([facility]) Laboratory Results Laboratory Results - last 24 hr 09/18/24 09/18/24 09/18/24 12:44 17:26 21:23 Sodium POC Glucose 102 H 115 H 131 H 09/19/24 09/19/24 09/19/24 05:12 07:46 08:16 Sodium 138 POC Glucose 128 H 133 H Current Inpatient Medications Current Inpatient Medications: Current Inpatient Medications Acetaminophen (Acetaminophen 325 Mg Tab) 650 mg PO Q4H PRN PRN Reason: Headache or Minor Fever Stop: 10/12/24 14:31 Last Admin: 09/19/24 07:53 Dose: 650 mg Al Hydrox/Mg Hydrox/Simethicone (Aluminum/Magnesium Susp 30 Ml Udc) 30 ml PO Q4H PRN PRN Reason: GI Upset Stop: 10/12/24 14:31 Ascorbic Acid (Ascorbic Acid 500 Mg Tab) 1,000 mg PO QAM [facility] Stop: 10/13/24 13:44 Last Admin: 09/19/24 07:36 Dose: 1,000 mg Aspirin (Aspirin 81 Mg Chew) 81 mg PO DAILY [facility] Stop: 10/13/24 08:59 Last Admin: 09/19/24 07:38 Dose: 81 mg Atorvastatin Calcium (Atorvastatin 40 Mg Tab) 40 mg PO QAM [facility] Stop: 10/13/24 08:59 Last Admin: 09/19/24 07:38 Dose: 40 mg Bismuth Subsalicylate (Bismuth Subsalicylate 262 Mg Chew) 2 tab PO Q30M PRN PRN Reason: Loose Stool/Diarrhea Stop: 10/12/24 14:31 Docusate Sodium (Docusate Sodium 100 Mg Cap) 100 mg PO BID PRN PRN Reason: constipation Stop: 10/16/24 20:59 Hydrocortisone (Hydrocortisone 1% Oint 30 Gm Tube) 1 appln EXT BID PRN PRN Reason: Affected Skin Folds Stop: 10/12/24 21:58 Last Admin: 09/13/24 16:42 Dose: 1 appln Hydroxyzine HCl (Hydroxyzine Hcl 25 Mg Tab) 50 mg PO HSZ PRN PRN Reason: Insomnia Stop: 10/12/24 14:31 Hydroxyzine HCl (Hydroxyzine Hcl 25 Mg Tab) 25 mg PO Q4H PRN PRN Reason: Anxiety Stop: 10/12/24 14:31 Last Admin: 09/19/24 07:59 Dose: 25 mg Ibuprofen (Ibuprofen 600 Mg Tab) 600 mg PO Q8H PRN PRN Reason: back pain Stop: 10/16/24 10:59 Last Admin: 09/18/24 13:13 Dose: 600 mg Insulin Aspart (Insulin Aspart Per Unit Charge) 0 units SC [facility] Stop: 10/12/24 21:59 Last Admin: 09/18/24 21:36 Dose: 3 units Insulin Glargine (Lantus Per Unit Charge) 5 units SC HS [facility] Stop: 10/13/24 21:59 Last Admin: 09/18/24 21:36 Dose: 5 units Levothyroxine Sodium (Levothyroxine Sodium 25 Mcg Tablet) 25 mcg PO DAILYBB [facility] Stop: 10/13/24 07:59 Last Admin: 09/19/24 07:36 Dose: 25 mcg Lorazepam (Lorazepam 1 Mg Tab) 2 mg PO Q8H PRN PRN Reason: Anxiety/Agitation Stop: 10/12/24 14:34 Lorazepam (Lorazepam 2 Mg/1 Ml Vial) 2 mg IM Q8H PRN PRN Reason: Anxiety/Agitation Stop: 10/12/24 21:01 Lorazepam (Lorazepam 1 Mg Tab) 2 mg PO HS [facility] Stop: 10/18/24 21:59 Last Admin: 09/18/24 21:17 Dose: 2 mg Magnesium Hydroxide (Magnesium Hydroxide Susp 30 Ml Udc) 30 ml PO DAILY PRN PRN Reason: Constipation Stop: 10/12/24 14:31 Last Admin: 09/17/24 13:55 Dose: 30 ml Metformin HCl (Metformin Hcl 500 Mg Tab) 1,000 mg PO BIDM [facility] Stop: 10/13/24 08:59 Last Admin: 09/19/24 07:38 Dose: 1,000 mg Metoprolol Succinate (Metoprolol Succ 50mg Ext Rel Tab) 50 mg PO BID [facility] Stop: 10/12/24 20:59 Last Admin: 09/19/24 07:39 Dose: 50 mg Miscellaneous Information (Pharmacy Glycemic Mgmt Consult) 1 each N/A UD PRN; Protocol PRN Reason: Consult Stop: 10/12/24 22:55 Nitrofurantoin Macrocrystals (Nitrofurantoin Monohydrate 100 Mg Cap) 100 mg PO BID [facility] Stop: 09/22/24 20:59 Last Admin: 09/19/24 07:40 Dose: 100 mg Olanzapine (Olanzapine 10 Mg/2.1 Ml Sdv) 10 mg IM DAILY PRN PRN Reason: medication over objection Stop: 10/16/24 08:59 Ondansetron HCl (Ondansetron 4 Mg Od Tab) 4 mg PO Q6H PRN PRN Reason: Nausea Stop: 10/14/24 11:27 Last Admin: 09/18/24 18:27 Dose: 4 mg Pantoprazole Sodium (Pantoprazole 40 Mg Tab) 40 mg PO QAM [facility] Stop: 10/13/24 08:59 Last Admin: 09/19/24 07:40 Dose: 40 mg Pregabalin (Pregabalin 75 Mg Cap) 75 mg PO BID [facility] Stop: 10/12/24 20:59 Last Admin: 09/19/24 07:41 Dose: 75 mg Risperidone (Risperidone 1 Mg Tablet) 1 mg PO HS [facility] Stop: 10/14/24 21:59 Last Admin: 09/18/24 21:15 Dose: 1 mg Risperidone (Risperidone 1 Mg Tablet) 1 mg PO QAM [facility] Stop: 10/16/24 09:59 Last Admin: 09/19/24 07:40 Dose: 1 mg Sodium Chloride (Sodium Chloride 0.65% Na Soln 45 Ml ([place])) 1 - 2 sprays NA PRN PRN PRN Reason: Nasal Dryness/Congestion Stop: 10/12/24 14:31 Vitamin D (Cholecalciferol 125 Mcg (5,000 Units) Tab) 125 mcg PO QAM [facility] Stop: 10/14/24 08:59 Last Admin: 09/19/24 07:38 Dose: 125 mcg
[2024-09-19] MEDS: LORazepam 0.5 MG TAB PO PRN (15:34)
[2024-09-19] MEDS: risperiDONE ODT 0.5 MG SOLTAB PO SCH (21:08)
[2024-09-20] MEDS: risperiDONE ODT 0.5 MG SOLTAB PO SCH (08:01)
--- NOTE | 2024-09-20 09:05 | Psychiatric Progress Note ---
Date of Service September 20, 2024 Impression / Recommendations Impression WILL PERSAUD is a 59-year-old wm with a history of psychosis, corine, and was admitted on 09/12/24 20:08 on a 302 involuntary commitment for psychosis, corine, polygenic polydipsia. Initially hospitalized for management of hyponatremia and stabilized; had NSTEMI and stabilized; now transferred to inpatient BHU. Currently on 303 involuntary commitment. Diagnostically consistent with unspecified psychosis-differential includes schizoaffective d/o vs schizophrenia vs BPAD current mixed episode. Substance-induced unlikely given negative UDS and history of past psychiatric hospitalizations. Also with psycho genic polydipsia. A: Increasingly suspect mixed state of BPAD with ongoing psychosis with delusions/paranoia/loosening of associations. Given improving sleep and ongoing reported depression symptoms will start very low dose SSRI in addition of risperidone and ativan to offer mood stabilization and psychosis treatment. Doing well with returned water access in her bathroom so will discontinue fluid restrictions and recheck Na+ in two days to see if treatment is lessening her psychogenic polydipsia. MNPR due to psychosis and inability to tolerate a roommate Overall, I spent a total of 35 minutes with this case including review of chart records, nursing report, review of lab work, direct evaluation of the patient at bedside, counseling the patient, multidisciplinary team meeting, orders, and documentation in the electronic health record and reviewing past medication scripts. (1) Corine: (2) Psychotic disorder: (3) Psychogenic polydipsia: (4) Cardiomyopathy, dilated, nonischemic: (5) Prolonged QT interval: (6) Abnormal echocardiogram: Plan 09/20/2024: -Discontinue fluid restrictions, recheck Na+ on 09/22/2024 -Trial very low dose sertraline 12.5mg daily (given concern for worsening hypomania but also with potential mixed mood symptoms) 09/19/2024: -Lorazepam 0.5mg BID prn for agitation/mood lability 09/18/2024: -Increase lorazepam back to 2mg HS due to poor sleep and increased symptoms of corine today -Switch to risperidone 1mg BID ODT for improved adherence -Mouth checks for medication adherence 09/17/2024: -Decrease lorazepam to 1mg HS due to her ongoing report of difficulty focusing and feeling sedated -Continue risperidone 1mg BID -Ease fluid restriction slightly, repeat Na+ in 2 days -Repeat EKG tomorrow to assess QTc -Start Macrobid 100mg BID for 5 days 09/16/2024: -Increase risperidone to 1mg qAM and olanzapine 10mg prn IM for medication over objection -Continue risperidone 1mg HS -Continue water restriction and use of separate bathroom to avoid excess intake -Will repeat EKG again on 09/18/2024 to assess QTc 09/15/2024: -Start risperidone 0.5mg QAM po and olanzapine 10mg prn IM for medication over objection -Continue risperidone 1mg HS -Continue water restriction and use of separate bathroom to avoid excess intake -Continue with routine EKG q2-3 days to assess QTc as further doses of antipsychotic medication are utilized 09/14/2024: Water restriction at 1500 mL. Water turned off in bathroom with supervised bathroom visits. Discontinue Abilify and start risperidone 1 mg at bedtime. Draw blood sodium and urine osmolality tomorrow morning. Zofran ODT as needed started. EKG scheduled for tomorrow to monitor QTc prolongation. Vit D 5000un daily started. 09/13/2024: The patient was admitted to the [facility] ([facility] health unit) on q15 min checks (behavioral with suicide precautions) for safety. The patient will participate in group, recreational, and milieu therapies and will be offered additional individual and family sessions as clinically appropriate. - Repeat EKG. Draw labs for BMP, vitamin D, B12. Draw urinalysis, urine osmolality. - Start Abilify 10 mg at bedtime. - Continue Lorazepam 2mg PO HS Inventory Assets Strengths: adherent to treatment, future oriented Needs: improved insight, social supports Suicide Risk Level Suicide Risk Level: Moderate (q15 min suicide checks) (mood changes and psychosis with disorganization and reports depression but denies SI and feels safe in the hospital, feels able to ask for support) Risk Factors Assessment Male: No : Yes Do You Have Access To A Gun?: No Health Problems: Yes Mental Health Diagnoses: Yes Substance Use Disorders: No Previous Attempt: No Family History of Suicide: No Previous Psychiatric Hospitalization: Yes Hopelessness: No Protective Factors Assessment Yazidi Beliefs: Yes : No Responsible for Young Children: No Employed: No Stable Relationships: No Supportive Family: No Good Rapport with Provider: Yes Absence of Any Risk Factors Above: No Interval History Identifying Information WILL REICHWEIN is a 59-year-old F who currently lives in alone, has a history of psychosis, corine, and was admitted on 09/12/24 20:08 on a 302 involuntary commitment for psychosis, corine, polygenic polydipsia. Initially hospitalized for management of hyponatremia and stabilized; had NSTEMI and stabilized; now transferred to inpatient BHU. Chief Complaint "You just don't understand". Review of Systems Sleep Information Total Hours of Sleep: 7.30 Sleep Comments: meds Meal Information Percent Meal Consumed - Breakfast: 100 Percent Meal Consumed - Lunch: 75 Percent Meal Consumed - Dinner: 100 Subjective Subjective Patient was seen & assessed and interval progress reviewed with treatment team nursing and social work. Taking her medications, attending groups and participating appropriately at times. Made a delusional statement about a peer. Getting prn ativan and Vistaril at times. Appropriate with water being turned back on. Frustrated by her ongoing concern that her depression is not being addressed. She feels like her mood is low and becomes tearful stating her wish to be on a depression medication. She reflects that she slept well and wonders about having access to a mug of water like her peers. Continues to focus on desire for an antidepressant. Physical Exam Psychiatric Orientation: alert, oriented to person and oriented to place Apperance: appropriately dressed Eye Contact: + fair eye contact Motor Behavior: no abnormal motor movements; no psychomotor retardation Speech: normal rate/rhythm/volume of speech (expansive) Affect: + tearful affect and + irritable affect Mood: + depressed mood, + anxious mood and + irritable mood Thought Process: + looseness of associations and + perseveration Thought Content: + preoccupation, + paranoid and + delusions Suicidal Thoughts: denies suicidal plan; + reports suicidal thoughts (reports she has these intermittently) Homicidal Thoughts: denies homicidal thoughts Hallucinations: + auditory hallucinations (suspected) Insight: + severely impaired insight Judgment: + limited judgement Vital Signs (Past 24 Hours) Last Vital Signs Temp 35.7 C L 09/20/24 06:00 Pulse 85 09/20/24 06:09 Resp 16 09/20/24 06:00 BP 109/52 L 09/20/24 06:09 Pulse Ox 97 09/16/24 20:48 O2 Del Method Room Air 09/16/24 20:48 Results & Data ([facility]) Laboratory Results Laboratory Results - last 24 hr 09/19/24 09/19/24 09/19/24 12:39 16:54 20:24 POC Glucose 121 H 158 H 93 09/20/24 05:36 POC Glucose 137 H Current Inpatient Medications Current Inpatient Medications: Current Inpatient Medications Acetaminophen (Acetaminophen 325 Mg Tab) 650 mg PO Q4H PRN PRN Reason: Headache or Minor Fever Stop: 10/12/24 14:31 Last Admin: 09/19/24 18:00 Dose: 650 mg Al Hydrox/Mg Hydrox/Simethicone (Aluminum/Magnesium Susp 30 Ml Udc) 30 ml PO Q4H PRN PRN Reason: GI Upset Stop: 10/12/24 14:31 Ascorbic Acid (Ascorbic Acid 500 Mg Tab) 1,000 mg PO QAM [facility] Stop: 10/13/24 13:44 Last Admin: 09/20/24 07:58 Dose: 1,000 mg Aspirin (Aspirin 81 Mg Chew) 81 mg PO DAILY [facility] Stop: 10/13/24 08:59 Last Admin: 09/20/24 08:00 Dose: 81 mg Atorvastatin Calcium (Atorvastatin 40 Mg Tab) 40 mg PO QAM [facility] Stop: 10/13/24 08:59 Last Admin: 09/20/24 08:00 Dose: 40 mg Bismuth Subsalicylate (Bismuth Subsalicylate 262 Mg Chew) 2 tab PO Q30M PRN PRN Reason: Loose Stool/Diarrhea Stop: 10/12/24 14:31 Docusate Sodium (Docusate Sodium 100 Mg Cap) 100 mg PO BID PRN PRN Reason: constipation Stop: 10/16/24 20:59 Hydrocortisone (Hydrocortisone 1% Oint 30 Gm Tube) 1 appln EXT BID PRN PRN Reason: Affected Skin Folds Stop: 10/12/24 21:58 Last Admin: 09/13/24 16:42 Dose: 1 appln Hydroxyzine HCl (Hydroxyzine Hcl 25 Mg Tab) 50 mg PO HSZ PRN PRN Reason: Insomnia Stop: 10/12/24 14:31 Hydroxyzine HCl (Hydroxyzine Hcl 25 Mg Tab) 25 mg PO Q4H PRN PRN Reason: Anxiety Stop: 10/12/24 14:31 Last Admin: 09/19/24 18:24 Dose: 25 mg Ibuprofen (Ibuprofen 600 Mg Tab) 600 mg PO Q8H PRN PRN Reason: back pain Stop: 10/16/24 10:59 Last Admin: 09/19/24 21:08 Dose: 600 mg Insulin Aspart (Insulin Aspart Per Unit Charge) 0 units SC ACHS [facility] Stop: 10/12/24 21:59 Last Admin: 09/19/24 21:06 Dose: 1 units Insulin Glargine (Lantus Per Unit Charge) 5 units SC HS [facility] Stop: 10/13/24 21:59 Last Admin: 09/19/24 21:07 Dose: 5 units Levothyroxine Sodium (Levothyroxine Sodium 25 Mcg Tablet) 25 mcg PO DAILYBB [facility] Stop: 10/13/24 07:59 Last Admin: 09/20/24 08:00 Dose: 25 mcg Lorazepam (Lorazepam 2 Mg/1 Ml Vial) 2 mg IM Q8H PRN PRN Reason: Anxiety/Agitation Stop: 10/12/24 21:01 Lorazepam (Lorazepam 1 Mg Tab) 2 mg PO HS [facility] Stop: 10/18/24 21:59 Last Admin: 09/19/24 21:07 Dose: 2 mg Lorazepam (Lorazepam 0.5 Mg Tab) 0.5 mg PO BID PRN PRN Reason: Anxiety Stop: 10/19/24 09:10 Last Admin: 09/19/24 15:34 Dose: 0.5 mg Magnesium Hydroxide (Magnesium Hydroxide Susp 30 Ml Udc) 30 ml PO DAILY PRN PRN Reason: Constipation Stop: 10/12/24 14:31 Last Admin: 09/19/24 10:24 Dose: 30 ml Metformin HCl (Met[facility] Hcl 500 Mg Tab) [facility] Stop: 10/13/24 08:59 Last Admin: 09/20/24 08:00 Dose: 1,000 mg Metoprolol Succinate (Metoprolol Succ 50mg Ext Rel Tab) 50 mg PO BID [facility] Stop: 10/12/24 20:59 Last Admin: 09/20/24 08:01 Dose: 50 mg Miscellaneous Information (Pharmacy Glycemic Mgmt Consult) 1 each N/A UD PRN; Protocol PRN Reason: Consult Stop: 10/12/24 22:55 Nitrofurantoin Macrocrystals (Nitrofurantoin Monohydrate 100 Mg Cap) 100 mg PO BID [facility] Stop: 09/22/24 20:59 Last Admin: 09/20/24 08:01 Dose: 100 mg Olanzapine (Olanzapine 10 Mg/2.1 Ml Sdv) 10 mg IM DAILY PRN PRN Reason: medication over objection Stop: 10/16/24 08:59 Ondansetron HCl (Ondansetron 4 Mg Od Tab) 4 mg PO Q6H PRN PRN Reason: Nausea Stop: 10/14/24 11:27 Last Admin: 09/18/24 18:27 Dose: 4 mg Pantoprazole Sodium (Pantoprazole 40 Mg Tab) 40 mg PO QAM [facility] Stop: 10/13/24 08:59 Last Admin: 09/20/24 08:01 Dose: 40 mg Pregabalin (Pregabalin 75 Mg Cap) 75 mg PO BID [facility] Stop: 10/12/24 20:59 Last Admin: 09/20/24 08:00 Dose: 75 mg Risperidone (Risperidone Odt 0.5 Mg Soltab) 1 mg PO QAM [facility] Stop: 10/20/24 08:59 Last Admin: 09/20/24 08:01 Dose: 1 mg Risperidone (Risperidone Odt 0.5 Mg Soltab) 2 mg PO HS [facility] Stop: 10/19/24 21:59 Last Admin: 09/19/24 21:08 Dose: 2 mg Sodium Chloride (Sodium Chloride 0.65% Na Soln 45 Ml ([place])) 1 - 2 sprays NA PRN PRN PRN Reason: Nasal Dryness/Congestion Stop: 10/12/24 14:31 Vitamin D (Cholecalciferol 125 Mcg (5,000 Units) Tab) 125 mcg PO QAM [facility] Stop: 10/14/24 08:59 Last Admin: 09/20/24 07:58 Dose: 125 mcg
[2024-09-20] MEDS: SERTRALINE HCL 50 MG TABLET PO SCH (13:09)
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
--- NOTE | 2024-09-21 09:51 | Pharmacy Report ---
Pharmacy Glycemic Short Note 2 - Date of Service September 21, 2024 - Glycemic Short BSG Results (Last 24 hours): 09/20/24 09/20/24 09/20/24 11:29 17:21 21:15 POC Glucose 104 H 110 H 135 H 09/21/24 08:30 POC Glucose 118 H OUTPATIENT ANTIDIABETIC REGIMEN: * Basaglar 16 units SC HS * Novolog Sliding scale * Metformin 1 gm PO BID * Trulicity 4.5 mg SC weekly HbA1c: 7.1% (09/10/24) ASSESSMENT: 10/01: * Lashaun received 17 units of insulin yesterday (5 were basal) * Fasting BSG this AM within goal range, continue current basal regimen * Some BSGs below goal range, but not hypoglycemic, loosened carbohydrate ratio slightly yesterday, continue with current correction factor and metformin for prandial coverage. 09/19: * Blood sugars reasonably well-controlled yesterday, ranging 102-178 mg/dL * Fasting blood sugar of 133 mg/dL this morning, which is improved * Do not anticipate any changes to current glycemic regimen 09/17: * Blood sugars continue to be relatively labile * Increased concern for hypoglycemia given overall downward trend last evening and today * Will prioritize hypoglycemia limitation by loosening Novolog parameters and decreasing basal * Continue metformin 09/16 * Lashaun recieved a total of 17 units of insulin yesterday (all bolus insulin) with variable glycemic control. * Fasting BSG trending upward, 180 mg/dL today. Patient refused Lantus on 09/14 and 09/15. Spoke with 3S RN - unsure if patient will accept basal this evening. * Lunch BSG tends to be the highest of the day followed by BSG below goal at dinner. Will tighten carb coverage to help with lunchtime spike and loosen correction factor to avoid evening hypoglycemia. 09/13 * Total of 21 units of insulin given yesterday. 8 units were basal and 13 units were bolus. * Fasting BSG this morning was 160mg/dL and then increased to 205mg/dL at lunch time. The Lantus dose was increased to 10 units starting this evening. (still ~40% less than her home dose of basal insulin) * Parameters of the bolus insulin were tightened yesterday and this will be continued for now. Patient still continues on her home metformin dose bid. 09/12 * 59 y/o F admitted on inpatient unit around a week ago for hyponatremia, UTI and cardiac condition requiring cath in addition to lilly. She has history of bipolar disorder and schizophrenia, Type 2 diabetes requiring insulin. Transferred to [facility] last night for psychiatric evaluation. * On the inpatient unit, patient had been receiving 5 units of basal insulin and Novolog ACHS- correction factor with stress between 2 and 3 but looser carb ratio. * BSGs yesterday were [phone] mg/dl. She received 5 units of basal and 14 units of bolus insulins yesterday. * Fasting BSG today was 145 mg/dl. * Metformin home dose was added to her meds today. * Will hold off on AM basal and move it to HS to be similar to home regimen. Initiated today's basal dose at 50% of home dose. PLAN FOR INPATIENT GLYCEMIC CONTROL: * Metformin 1 gm PO BID * Basal insulin * Lantus 5 units SQ HS * Bolus insulin * NovoLog per scale ACHS or Q6hrs while NPO * Goal Range: Low 110 mg/dL - High 140 mg/dL * Correction Factor: 35 mg/dL/unit * Nutritional / Prandial insulin per carb ratio of 1 unit per 15 grams CHO consumed
--- NOTE | 2024-09-22 14:04 | Psychiatric Progress Note ---
Date of Service September 22, 2024 Impression / Recommendations Impression WILL PERSAUD is a 59-year-old wm with a history of psychosis, lilly, and was admitted on 09/12/24 20:08 on a 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 Initially hospitalized for management of hyponatremia and stabilized; had NSTEMI and stabilized; now transferred to inpatient BHU. Currently on 303 involuntary commitment which expires on 10/01/2024. Diagnostically consistent with unspecified psychosis-differential includes schizoaffective d/o vs schizophrenia vs BPAD current mixed episode. Substance- induced unlikely given negative UDS and history of past psychiatric hosp italizations. Also with psychogenic polydipsia. A: Patient appears less labile presents more organized thought process. Continues to demonstrate poor insight regarding her mood state and is highly focused on antidepressant treatment and disregards concerns for potential hyponatremia. will coordinate with social work to assure safe transition back into the community. Patient is currently off water restriction presents a stable sodium level; we will continue to monitor. MNPR due to psychosis and inability to tolerate a roommate Overall, I spent a total of 35 minutes with this case including review of chart records, nursing report, review of lab work, direct evaluation of the patient at bedside, counseling the patient, multidisciplinary team meeting, orders, and documentation in the electronic health record and reviewing past medication scripts. (1) Bipolar 1 disorder, mixed: (2) Psychotic disorder: (3) Psychogenic polydipsia: (4) Cardiomyopathy, dilated, nonischemic: (5) Prolonged QT interval: (6) Abnormal echocardiogram: Plan 09/22/2024: Continue medications and treatment plan. 09/21/2024: -Continue current medications and tx plan -Recheck Na+ tomorrow 09/20/2024: -Discontinue fluid restrictions, recheck Na+ on 09/22/2024 -Trial very low dose sertraline 12.5mg daily (given concern for worsening hypomania but also with potential mixed mood symptoms) 09/19/2024: -Lorazepam 0.5mg BID prn for agitation/mood lability 09/18/2024: -Increase lorazepam back to 2mg HS due to poor sleep and increased symptoms of lilly today -Switch to risperidone 1mg BID ODT for improved adherence -Mouth checks for medication adherence 09/17/2024: -Decrease lorazepam to 1mg HS due to her ongoing report of difficulty focusing and feeling sedated -Continue risperidone 1mg BID -Ease fluid restriction slightly, repeat Na+ in 2 days -Repeat EKG tomorrow to assess QTc -Start Macrobid 100mg BID for 5 days 09/16/2024: -Increase risperidone to 1mg qAM and olanzapine 10mg prn IM for medication over objection -Continue risperidone 1mg HS -Continue water restriction and use of separate bathroom to avoid excess intake -Will repeat EKG again on 09/18/2024 to assess QTc 09/15/2024: -Start risperidone 0.5mg QAM po and olanzapine 10mg prn IM for medication over objection -Continue risperidone 1mg HS -Continue water restriction and use of separate bathroom to avoid excess intake -Continue with routine EKG q2-3 days to assess QTc as further doses of antipsychotic medication are utilized 09/14/2024: Water restriction at 1500 mL. Water turned off in bathroom with supervised bathroom visits. Discontinue Abilify and start risperidone 1 mg at bedtime. Draw blood sodium and urine osmolality tomorrow morning. Zofran ODT as needed started. EKG scheduled for tomorrow to monitor QTc prolongation. Vit D 5000un daily started. 09/13/2024: The patient was admitted to the [facility] ([facility] mental health unit) on q15 min checks (behavioral with suicide precautions) for safety. The patient will participate in group, recreational, and milieu therapies and will be offered additional individual and family sessions as clinically appropriate. - Repeat EKG. Draw labs for BMP, vitamin D, B12. Draw urinalysis, urine osmolality. - Start Abilify 10 mg at bedtime. - Continue Lorazepam 2mg PO HS Inventory Assets Strengths: adherent to treatment, future oriented Needs: improved insight, social supports Suicide Risk Level Suicide Risk Level: Moderate (q15 min suicide checks) (mood changes and psychosis with disorganization and reports depression but denies SI and feels safe in the hospital, feels able to ask for support) Risk Factors Assessment Male: No : Yes Do You Have Access To A Gun?: No Health Problems: Yes Mental Health Diagnoses: Yes Substance Use Disorders: No Previous Attempt: No Family History of Suicide: No Previous Psychiatric Hospitalization: Yes Hopelessness: No Protective Factors Assessment Buddhist Beliefs: Yes : No Responsible for Young Children: No Employed: No Stable Relationships: No Supportive Family: No Good Rapport with Provider: Yes Absence of Any Risk Factors Above: No Interval History Identifying Information WILL PERSAUD is a 59-year-old F who currently lives in alone, has a history of psychosis, lilly, and was admitted on 09/12/24 20:08 on a 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 Initially hospitalized for management of hyponatremia and stabilized; had NSTEMI and stabilized; now transferred to inpatient BHU. Chief Complaint "Feeling tired all the time" Review of Systems Sleep Information Total Hours of Sleep: 7 Sleep Comments: meds Meal Information Percent Meal Consumed - Breakfast: 100 Percent Meal Consumed - Lunch: 100 Percent Meal Consumed - Dinner: 100 Subjective Subjective Patient was seen & assessed and interval progress reviewed with treatment team nursing and social work Patient reports low energy and feeling tired. She denies SI. Complains of depression and feels that her sertraline should be increased. Feels the UTI caused her initial confusion. Reports having burning on urination but then saying it is getting better when I tell her I can do a urinalysis. Says that she is fighting her appetite (nursing reports she is eating meals). Says that she will "comply with everything" and is doing well. Reports future plans to get a job at [employer] and that it is waiting for her. Says that her landlord is not going to effect her and is going to work with her situation (not the impression the inpatient team got from the landlord). Seems resistant when offered to have social work coordinate discharge with landlord getting her car; however agreeable. Reports that the sister had manic episodes and her father and father's brother both committed suicide. Physical Exam Mental Examination Appearance: Well Groomed Eye Contact: Maintains Eye Contact Motor Behavior: Unremarkable Speech: Normal Mood: Euthymic and Calm Affect: Constricted Thought Process: Intact and Goal Oriented Thought Content: Goal Oriented (towards discharge, providing conflicting information), Linear and Preoccupation (focused on getting antidepressant treatment) Hallucinations: None Insight: Poor Judgement: Poor Vital Signs (Past 24 Hours) Last Vital Signs Temp 36.5 C 09/22/24 06:45 Pulse 81 09/22/24 06:45 Resp 18 09/22/24 06:45 BP 123/78 09/22/24 06:45 Pulse Ox 97 09/16/24 20:48 O2 Del Method Room Air 09/16/24 20:48 Results & Data ([facility]) Laboratory Results Laboratory Results - last 24 hr 09/21/24 09/21/24 09/22/24 16:59 20:19 08:35 Sodium 135 L POC Glucose 133 H 103 H 09/22/24 09/22/24 08:46 12:33 Sodium POC Glucose 128 H 106 H Current Inpatient Medications Current Inpatient Medications: Current Inpatient Medications Acetaminophen (Acetaminophen 325 Mg Tab) 650 mg PO Q4H PRN PRN Reason: Headache or Minor Fever Stop: 10/12/24 14:31 Last Admin: 09/22/24 06:19 Dose: 650 mg Al Hydrox/Mg Hydrox/Simethicone (Aluminum/Magnesium Susp 30 Ml Udc) 30 ml PO Q4H PRN PRN Reason: GI Upset Stop: 10/12/24 14:31 Ascorbic Acid (Ascorbic Acid 500 Mg Tab) 1,000 mg PO QAM [facility] Stop: 10/13/24 13:44 Last Admin: 09/22/24 09:20 Dose: 1,000 mg Aspirin (Aspirin 81 Mg Chew) 81 mg PO DAILY [facility] Stop: 10/13/24 08:59 Last Admin: 09/22/24 09:20 Dose: 81 mg Atorvastatin Calcium (Atorvastatin 40 Mg Tab) 40 mg PO QAM [facility] Stop: 10/13/24 08:59 Last Admin: 09/22/24 09:20 Dose: 40 mg Bismuth Subsalicylate (Bismuth Subsalicylate 262 Mg Chew) 2 tab PO Q30M PRN PRN Reason: Loose Stool/Diarrhea Stop: 10/12/24 14:31 Docusate Sodium (Docusate Sodium 100 Mg Cap) 100 mg PO BID PRN PRN Reason: constipation Stop: 10/16/24 20:59 Hydrocortisone (Hydrocortisone 1% Oint 30 Gm Tube) 1 appln EXT BID PRN PRN Reason: Affected Skin Folds Stop: 10/12/24 21:58 Last Admin: 09/13/24 16:42 Dose: 1 appln Hydroxyzine HCl (Hydroxyzine Hcl 25 Mg Tab) 50 mg PO HSZ PRN PRN Reason: Insomnia Stop: 10/12/24 14:31 Hydroxyzine HCl (Hydroxyzine Hcl 25 Mg Tab) 25 mg PO Q4H PRN PRN Reason: Anxiety Stop: 10/12/24 14:31 Last Admin: 09/19/24 18:24 Dose: 25 mg Ibuprofen (Ibuprofen 600 Mg Tab) 600 mg PO Q8H PRN PRN Reason: back pain Stop: 10/16/24 10:59 Last Admin: 09/22/24 09:36 Dose: 600 mg Insulin Aspart (Insulin Aspart Per Unit Charge) 0 units SC ACHS [facility]ONE[facility] Stop: 10/12/24 21:59 Last Admin: 09/22/24 13:10 Dose: 4 units Insulin Glargine (Lantus Per Unit Charge) 5 units SC HS [facility] Stop: 10/13/24 21:59 Last Admin: 09/21/24 21:13 Dose: 5 units Levothyroxine Sodium (Levothyroxine Sodium 25 Mcg Tablet) 25 mcg PO DAILYBB [facility] Stop: 10/13/24 07:59 Last Admin: 09/22/24 09:19 Dose: 25 mcg Lorazepam (Lorazepam 2 Mg/1 Ml Vial) 2 mg IM Q8H PRN PRN Reason: Anxiety/Agitation Stop: 10/12/24 21:01 Lorazepam (Lorazepam 1 Mg Tab) 2 mg PO HS TONEY Stop: 10/18/24 21:59 Last Admin: 09/21/24 21:14 Dose: 2 mg Lorazepam (Lorazepam 0.5 Mg Tab) 0.5 mg PO BID PRN PRN Reason: Anxiety Stop: 10/19/24 09:10 Last Admin: 09/21/24 17:06 Dose: 0.5 mg Magnesium Hydroxide (Magnesium Hydroxide Susp 30 Ml Udc) 30 ml PO DAILY PRN PRN Reason: Constipation Stop: 10/12/24 14:31 Last Admin: 09/19/24 10:24 Dose: 30 ml Metformin HCl (Metformin Hcl 500 Mg Tab) 1,000 mg PO BIDM [facility] Stop: 10/13/24 08:59 Last Admin: 09/22/24 09:20 Dose: 1,000 mg Metoprolol Succinate (Metoprolol Succ 50mg Ext Rel Tab) 50 mg PO BID [facility] Stop: 10/12/24 20:59 Last Admin: 09/22/24 09:21 Dose: 50 mg Miscellaneous Information (Pharmacy Glycemic Mgmt Consult) 1 each N/A UD PRN; Protocol PRN Reason: Consult Stop: 10/12/24 22:55 Nitrofurantoin Macrocrystals (Nitrofurantoin Monohydrate 100 Mg Cap) 100 mg PO BID [facility] Stop: 09/22/24 20:59 Last Admin: 09/22/24 09:21 Dose: 100 mg Olanzapine (Olanzapine 10 Mg/2.1 Ml Sdv) 10 mg IM DAILY PRN PRN Reason: medication over objection Stop: 10/16/24 08:59 Ondansetron HCl (Ondansetron 4 Mg Od Tab) 4 mg PO Q6H PRN PRN Reason: Nausea Stop: 10/14/24 11:27 Last Admin: 09/18/24 18:27 Dose: 4 mg Pantoprazole Sodium (Pantoprazole 40 Mg Tab) [facility] [place] Stop: 10/13/24 08:59 Last Admin: 09/22/24 09:21 Dose: 40 mg Pregabalin (Pregabalin 75 Mg Cap) 75 mg PO BID [facility] Stop: 10/12/24 20:59 Last Admin: 09/22/24 09:25 Dose: 75 mg Risperidone (Risperidone Odt 0.5 Mg Soltab) 1 mg PO QAM [facility] Stop: 10/20/24 08:59 Last Admin: 09/22/24 09:22 Dose: 1 mg Risperidone (Risperidone Odt 0.5 Mg Soltab) 2 mg PO HS [facility] Stop: 10/19/24 21:59 Last Admin: 09/21/24 21:13 Dose: 2 mg Sertraline HCl (Sertraline Hcl 50 Mg Tablet) 12.5 mg PO QAM [facility] Stop: 10/20/24 12:44 Last Admin: 09/22/24 09:21 Dose: 12.5 mg Sodium Chloride (Sodium Chloride 0.65% Na Soln 45 Ml ([place])) 1 - 2 sprays NA PRN PRN PRN Reason: Nasal Dryness/Congestion Stop: 10/12/24 14:31 Vitamin D (Cholecalciferol 125 Mcg (5,000 Units) Tab) 125 mcg PO QAM [facility] Stop: 10/14/24 08:59 Last Admin: 09/22/24 09:20 Dose: 125 mcg
[2024-09-23] MEDS: PALIPERIDONE PALMITATE 234 MG/1.5 ML SYR IM ONE (13:20)
--- NOTE | 2024-09-23 15:20 | Psychiatric Progress Note ---
Date of Service September 23, 2024 Impression / Recommendations Impression WILL PERSAUD is a 59-year-old wm with a history of psychosis, lilly, and was admitted on 09/12/24 20:08 on a 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 Initially hospitalized for management of hyponatremia and stabilized; had NSTEMI and stabilized; now transferred to inpatient BHU. Currently on 303 involuntary commitment which expires on 10/01/2024. Diagnostically consistent with unspecified psychosis-differential includes schizoaffective d/o vs schizophrenia vs BPAD current mixed episode. Substance- induced unlikely given negative UDS and history of past psychiatric hosp italizations. Also with psychogenic polydipsia. A: Patient is presenting improved sleep and appears to have less racing thoughts. Patient's complaints of depression and low energy do not reflect be haviors and actions on the unit. Highly focused on getting treatment for different illnesses despite limited symptomatology for those illnesses. Agreeable to long-acting injection for mood stabilization. Continues to be goal directed on discharge with unclear aftercare plan. MNPR due to psychosis and inability to tolerate a roommate Overall, I spent a total of 35 minutes with this case including review of chart records, nursing report, review of lab work, direct evaluation of the patient at bedside, counseling the patient, multidisciplinary team meeting, orders, and documentation in the electronic health record and reviewing past medication scripts. (1) Bipolar 1 disorder, mixed: (2) Psychotic disorder: (3) Psychogenic polydipsia: (4) Cardiomyopathy, dilated, nonischemic: (5) Prolonged QT interval: (6) Abnormal echocardiogram: Plan 09/23/2024: Urinalysis and urine osmolality tomorrow a.m. BMP and EKG tomorrow. Discontinue sertraline. Start venlafaxine extended release 37.5 mg daily. Initiate Invega Sustenna 234 mg IM once. Lorazepam decreased to 1.5 mg at bedtime. 09/22/2024: Continue medications and treatment plan. 09/21/2024: -Continue current medications and tx plan -Recheck Na+ tomorrow 09/20/2024: -Discontinue fluid restrictions, recheck Na+ on 09/22/2024 -Trial very low dose sertraline 12.5mg daily (given concern for worsening hypomania but also with potential mixed mood symptoms) 09/19/2024: -Lorazepam 0.5mg BID prn for agitation/mood lability 09/18/2024: -Increase lorazepam back to 2mg HS due to poor sleep and increased symptoms of illly today -Switch to risperidone 1mg BID ODT for improved adherence -Mouth checks for medication adherence 09/17/2024: -Decrease lorazepam to 1mg HS due to her ongoing report of difficulty focusing and feeling sedated -Continue risperidone 1mg BID -Ease fluid restriction slightly, repeat Na+ in 2 days -Repeat EKG tomorrow to assess QTc -Start Macrobid 100mg BID for 5 days 09/16/2024: -Increase risperidone to 1mg qAM and olanzapine 10mg prn IM for medication over objection -Continue risperidone 1mg HS -Continue water restriction and use of separate bathroom to avoid excess intake -Will repeat EKG again on 09/18/2024 to assess QTc 09/15/2024: -Start risperidone 0.5mg QAM po and olanzapine 10mg prn IM for medication over objection -Continue risperidone 1mg HS -Continue water restriction and use of separate bathroom to avoid excess intake -Continue with routine EKG q2-3 days to assess QTc as further doses of antipsychotic medication are utilized 09/14/2024: Water restriction at 1500 mL. Water turned off in bathroom with supervised bathroom visits. Discontinue Abilify and start risperidone 1 mg at bedtime. Draw blood sodium and urine osmolality tomorrow morning. Zofran ODT as needed started. EKG scheduled for tomorrow to monitor QTc prolongation. Vit D 5000un daily started. 09/13/2024: The patient was admitted to the [facility] ([facility] mental health unit) on q15 min checks (behavioral with suicide precautions) for safety. The patient will participate in group, recreational, and milieu therapies and will be offered additional individual and family sessions as clinically appropriate. - Repeat EKG. Draw labs for BMP, vitamin D, B12. Draw urinalysis, urine osmolality. - Start Abilify 10 mg at bedtime. - Continue Lorazepam 2mg PO HS Inventory Assets Strengths: adherent to treatment, future oriented Needs: improved insight, social supports Suicide Risk Level Suicide Risk Level: Moderate (q15 min suicide checks) (mood changes and psychosis with disorganization and reports depression but denies SI and feels safe in the hospital, feels able to ask for support) Risk Factors Assessment Male: No : Yes Do You Have Access To A Gun?: No Health Problems: Yes Mental Health Diagnoses: Yes Substance Use Disorders: No Previous Attempt: No Family History of Suicide: No Previous Psychiatric Hospitalization: Yes Hopelessness: No Protective Factors Assessment Synagogue Beliefs: Yes : No Responsible for Young Children: No Employed: No Stable Relationships: No Supportive Family: No Good Rapport with Provider: Yes Absence of Any Risk Factors Above: No Interval History Identifying Information WILL PERSAUD is a 59-year-old F who currently lives in alone, has a history of psychosis, lilly, and was admitted on 09/12/24 20:08 on a 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 Initially hospitalized for management of hyponatremia and stabilized; had NSTEMI and stabilized; now transferred to inpatient U. Chief Complaint "I am very tired, no energy. I am depressed" Review of Systems Sleep Information Total Hours of Sleep: 7.5 Sleep Comments: meds Meal Information Percent Meal Consumed - Breakfast: 100 Percent Meal Consumed - Lunch: 75 Percent Meal Consumed - Dinner: 100 Subjective Subjective Patient was seen & assessed and interval progress reviewed with treatment team nursing and social work On interview patient reports she is tired and has low energy. Patient is smiling and appears bright at times. (Nursing notes patient has been engaging on the unit, attending all groups and interacted with peers). Reports doing well on Effexor in the past and wants to try that over Zoloft. Reports she is sleeping well. She complains of tardive dyskinesia and then starts making movements with her mouth such as grinding teeth (this was not observed throughout her hospitalization). She reports a plan to go back home and work part-time at [employer]. She reported starting a job there in the summer but then I got hot and that she could not work anymore and they let her go. Reports excess thirst has improved and we reflect on our concerns when she was initially hospitalized. Reports not having an appetite (eating her meals). Agreeable to long-acting injection given health benefits that were proposed. Physical Exam Mental Examination Appearance: Well Groomed Eye Contact: Maintains Eye Contact Motor Behavior: Unremarkable Speech: Normal Mood: Euthymic and Calm Affect: Constricted Thought Process: Intact and Goal Oriented Thought Content: Goal Oriented (towards discharge, providing conflicting information), Linear and Preoccupation (focused on getting antidepressant treatment) Hallucinations: None Insight: Poor Judgement: Poor Vital Signs (Past 24 Hours) Last Vital Signs Temp 36.4 C L 09/23/24 06:45 Pulse 93 H 09/23/24 06:45 Resp 16 09/23/24 06:45 BP 107/76 09/23/24 06:45 Pulse Ox 97 09/16/24 20:48 O2 Del Method Room Air 09/16/24 20:48 Results & Data ([facility]) Laboratory Results Laboratory Results - last 24 hr 09/22/24 09/22/24 09/23/24 16:44 20:10 07:04 POC Glucose 100 H 148 H 111 H 09/23/24 12:35 POC Glucose 68 L* Current Inpatient Medications Current Inpatient Medications: Current Inpatient Medications Acetaminophen (Acetaminophen 325 Mg Tab) 650 mg PO Q4H PRN PRN Reason: Headache or Minor Fever Stop: 10/12/24 14:31 Last Admin: 09/23/24 13:42 Dose: 650 mg Al Hydrox/Mg Hydrox/Simethicone (Aluminum/Magnesium Susp 30 Ml Udc) 30 ml PO Q4H PRN PRN Reason: GI Upset Stop: 10/12/24 14:31 Ascorbic Acid (Ascorbic Acid 500 Mg Tab) 1,000 [facility] [place] Stop: 10/13/24 13:44 Last Admin: 09/23/24 08:15 Dose: 1,000 mg Aspirin (Aspirin 81 Mg Chew) 81 mg PO DAILY [facility] Stop: 10/13/24 08:59 Last Admin: 09/23/24 08:14 Dose: 81 mg Atorvastatin Calcium (Atorvastatin 40 Mg Tab) 40 mg PO QAM [facility] Stop: 10/13/24 08:59 Last Admin: 09/23/24 08:15 Dose: 40 mg Bismuth Subsalicylate (Bismuth Subsalicylate 262 Mg Chew) 2 tab PO Q30M PRN PRN Reason: Loose Stool/Diarrhea Stop: 10/12/24 14:31 Docusate Sodium (Docusate Sodium 100 Mg Cap) 100 mg PO BID PRN PRN Reason: constipation Stop: 10/16/24 20:59 Hydrocortisone (Hydrocortisone 1% Oint 30 Gm Tube) 1 appln EXT BID PRN PRN Reason: Affected Skin Folds Stop: 10/12/24 21:58 Last Admin: 09/13/24 16:42 Dose: 1 appln Hydroxyzine HCl (Hydroxyzine Hcl 25 Mg Tab) 50 mg PO HSZ PRN PRN Reason: Insomnia Stop: 10/12/24 14:31 Hydroxyzine HCl (Hydroxyzine Hcl 25 Mg Tab) 25 mg PO Q4H PRN PRN Reason: Anxiety Stop: 10/12/24 14:31 Last Admin: 09/23/24 12:20 Dose: 25 mg Ibuprofen (Ibuprofen 600 Mg Tab) 600 mg PO Q8H PRN PRN Reason: back pain Stop: 10/16/24 10:59 Last Admin: 09/23/24 15:11 Dose: 600 mg Insulin Aspart (Insulin Aspart Per Unit Charge) 0 [facility]; Protocol Stop: 10/12/24 21:59 Last Admin: 09/23/24 13:15 Dose: 1 units Insulin Glargine (Lantus Per Unit Charge) [address] [facility] Stop: 10/13/24 21:59 Last Admin: 09/22/24 21:55 Dose: 5 units Levothyroxine Sodium (Levothyroxine Sodium 25 Mcg Tablet) [facility] Stop: 10/13/24 07:59 Last Admin: 09/23/24 08:16 Dose: 25 mcg Lorazepam (Lorazepam 2 Mg/1 Ml Vial) 2 mg IM Q8H PRN PRN Reason: Anxiety/Agitation Stop: 10/12/24 21:01 Lorazepam (Lorazepam 0.5 Mg Tab) 0.5 mg PO BID PRN PRN Reason: Anxiety Stop: 10/19/24 09:10 Last Admin: 09/21/24 17:06 Dose: 0.5 mg Lorazepam (Lorazepam 0.5 Mg Tab) 1.[address] [facility] Stop: 10/23/24 21:59 Magnesium Hydroxide (Magnesium Hydroxide Susp 30 Ml Udc) 30 ml PO DAILY PRN PRN Reason: Constipation Stop: 10/12/24 14:31 Last Admin: 09/23/24 09:04 Dose: 30 ml Metformin HCl (Metformin Hcl 500 Mg Tab) 1,000 mg [facility] [place] Stop: 10/13/24 08:59 Last Admin: 09/23/24 08:12 Dose: 1,000 mg Metoprolol Succinate (Metoprolol Succ 50mg Ext Rel Tab) 50 mg PO BID [facility] Stop: 10/12/24 20:59 Last Admin: 09/23/24 08:16 Dose: 50 mg Miscellaneous Information (Pharmacy Glycemic Mgmt Consult) 1 each N/A UD PRN; Protocol PRN Reason: Consult Stop: 10/12/24 22:55 Olanzapine (Olanzapine 10 Mg/2.1 Ml Sdv) 10 mg IM DAILY PRN PRN Reason: medication over objection Stop: 10/16/24 08:59 Ondansetron HCl (Ondansetron 4 Mg Od Tab) 4 mg PO Q6H PRN PRN Reason: Nausea Stop: 10/14/24 11:27 Last Admin: 09/23/24 14:30 Dose: 4 mg Pantoprazole Sodium (Pantoprazole 40 Mg Tab) 40 mg PO QAM [facility] Stop: 10/13/24 08:59 Last Admin: 09/23/24 08:15 Dose: 40 mg Pregabalin (Pregabalin 75 Mg Cap) 75 mg PO BID [facility] Stop: 10/12/24 20:59 Last Admin: 09/23/24 08:19 Dose: 75 mg Risperidone (Risperidone Odt 0.5 Mg Soltab) 1 mg PO QAM [facility] Stop: 10/20/24 08:59 Last Admin: 09/23/24 08:11 Dose: 1 mg Risperidone (Risperidone Odt 0.5 Mg Soltab) 2 mg PO HS [facility] Stop: 10/19/24 21:59 Last Admin: 09/22/24 21:53 Dose: 2 mg Sodium Chloride (Sodium Chloride 0.65% Na Soln 45 Ml ([place])) 1 - 2 sprays NA PRN PRN PRN Reason: Nasal Dryness/Congestion Stop: 10/12/24 14:31 Venlafaxine HCl (Venlafaxine Hcl Xr 37.5 Mg Capxr) 37.5 mg PO QAM [facility] Stop: 10/24/24 08:59 Vitamin D (Cholecalciferol 125 Mcg (5,000 Units) Tab) 125 mcg PO QAM [facility] Stop: 10/14/24 08:59 Last Admin: 09/23/24 08:14 Dose: 125 mcg
[2024-09-23] MEDS: LORazepam 0.5 MG TAB PO SCH (21:22)
[2024-09-24] MEDS: DOCUSATE SODIUM 100 MG CAP PO PRN (04:17)
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
[2024-09-24 07:51] LABS: Appearance Urine Clear (Clear); Bacteria Urine Automated None Seen (None Seen); Bilirubin Urine Negative (Negative); Blood Urine Negative (Negative); Cast Urine Automated 0-2 /lpf (0-2); Color Urine Yellow; Epithelial Cell Urine Auto 0-2 /hpf (0-2); Glucose Urine UA Negative (Negative); Ketones Urine Negative (Negative); Leukocyte Esterase Urine Trace (Negative); Nitrite Urine Negative (Negative); Protein Urine Negative (Negative); RBC Urine Automated 0-2 /hpf (0-2); Specific Gravity Urine 1.003 (1.000-1.030); Urobilinogen Urine Negative (Negative); WBC Urine Automated 0-5 /hpf (0-5)
[2024-09-24 07:56] LABS: Anion Gap 3 (3-11); BUN Creatinine Ratio 17.1 (10-20); Blood Urea Nitrogen 12 mg/dl (6-23); Calcium 9.2 mg/dl (8.6-10.3); Carbon Dioxide 32 mmol/L (21-32); Chloride 99 mmol/L (98-107); Glucose 127 mg/dl (70-99(Fasting)); Potassium 4.5 mmol/L (3.5-5.1); Sodium 134 mmol/L (136-145)
[2024-09-24] MEDS: risperiDONE 1 MG/ML SOLUTION PO ONE (08:39)
[2024-09-24] MEDS: VENLAFAXINE HCL XR 37.5 MG CAPXR PO SCH (08:39)
[2024-09-24] MEDS ORDERED: GLUCOSE 10 TAB/TUBE PO PRN (08:45)
[2024-09-24] MEDS ORDERED: CARBOHYDRATES FOR HYPOGLYCEMIA PO PRN (08:45)
[2024-09-24] MEDS ORDERED: GLUCOSE 40% GEL 15 GM TUBE PO PRN (08:45)
[2024-09-24] MEDS ORDERED: DEXTROSE 50% 50 ML SYRINGE IV PRN (08:45)
[2024-09-24] MEDS ORDERED: GLUCAGON FOR INJ 1 MG VIAL SQ PRN (08:45)
[2024-09-24] MEDS: risperiDONE 1 MG TABLET PO SCH (11:11)
[2024-09-24] MEDS: METHENAMINE HIPPURATE 1 GM TAB PO SCH (12:04)
--- NOTE | 2024-09-24 12:29 | Pharmacy Report ---
Pharmacy Glycemic Short Note 2 - Date of Service September 24, 2024 - Glycemic Short BSG Results (Last 24 hours): 09/23/24 09/23/24 09/23/24 12:35 17:12 20:24 Glucose POC Glucose 68 L* 94 118 H 09/24/24 09/24/24 09/24/24 07:17 07:25 11:44 Glucose 127 H POC Glucose 109 H 86 OUTPATIENT ANTIDIABETIC REGIMEN: * Basaglar 16 units SC HS * Novolog Sliding scale * Metformin 1 gm PO BID * Trulicity 4.5 mg SC weekly HbA1c: 7.1% (09/10/24) ASSESSMENT: 09/24: * 16 units of insulin total were given yesterday--5 were basal and 11 were bolus. * Fasting BSG this AM was 109mg/dL. The BSG dropped to 86mg/dL at lunch today and there was a low BSG yesterday at lunch time (68mg/dL). Bolus insulin parameters were already loosened yesterday. Due to concern for hypoglycemia, the basal insulin will be held tonight. The bolus insulin regimen will be continued as ordered and the metformin as she takes outpatient will also be continued. 09/21: * Lashaun received 17 units of insulin yesterday (5 were basal) * Fasting BSG this AM within goal range, continue current basal regimen * Some BSGs below goal range, but not hypoglycemic, loosened carbohydrate ratio slightly yesterday, continue with current correction factor and metformin for prandial coverage. 09/19: * Blood sugars reasonably well-controlled yesterday, ranging 102-178 mg/dL * Fasting blood sugar of 133 mg/dL this morning, which is improved * Do not anticipate any changes to current glycemic regimen 09/17: * Blood sugars continue to be relatively labile * Increased concern for hypoglycemia given overall downward trend last evening and today * Will prioritize hypoglycemia limitation by loosening Novolog parameters and decreasing basal * Continue metformin 09/16 * Lashaun recieved a total of 17 units of insulin yesterday (all bolus insulin) with variable glycemic control. * Fasting BSG trending upward, 180 mg/dL today. Patient refused Lantus on 09/14 and 09/15. Spoke with 3S RN - unsure if patient will accept basal this evening. * Lunch BSG tends to be the highest of the day followed by BSG below goal at dinner. Will tighten carb coverage to help with lunchtime spike and loosen correction factor to avoid evening hypoglycemia. 09/13 * Total of 21 units of insulin given yesterday. 8 units were basal and 13 units were bolus. * Fasting BSG this morning was 160mg/dL and then increased to 205mg/dL at lunch time. The Lantus dose was increased to 10 units starting this evening. (still ~40% less than her home dose of basal insulin) * Parameters of the bolus insulin were tightened yesterday and this will be continued for now. Patient still continues on her home metformin dose bid. 09/12 * 59 y/o F admitted on inpatient unit around a week ago for hyponatremia, UTI and cardiac condition requiring cath in addition to lilly. She has history of bipolar disorder and schizophrenia, Type 2 diabetes requiring insulin. Transferred to [facility] last night for psychiatric evaluation. * On the inpatient unit, patient had been receiving 5 units of basal insulin and Novolog ACHS- correction factor with stress between 2 and 3 but looser carb ratio. * BSGs yesterday were [phone] mg/dl. She received 5 units of basal and 14 units of bolus insulins yesterday. * Fasting BSG today was 145 mg/dl. * Metformin home dose was added to her meds today. * Will hold off on AM basal and move it to HS to be similar to home regimen. Initiated today's basal dose at 50% of home dose. PLAN FOR INPATIENT GLYCEMIC CONTROL: * Metformin 1 gm PO BID * Bolus insulin * NovoLog per scale ACHS or Q6hrs while NPO * Goal Range: Low 110 mg/dL - High 140 mg/dL * Correction Factor: 40 mg/dL/unit * Nutritional / Prandial insulin per carb ratio of 1 unit per 20 grams CHO consumed
--- NOTE | 2024-09-24 15:19 | Electrocardiogram Report ---
Test Reason : Blood Pressure : */* mmHG Vent. Rate : 77 BPM Atrial Rate : 77 BPM P-R Int : 174 ms QRS Dur : 92 ms QT Int : 458 ms P-R-T Axes : 42 58 149 degrees QTcB Int : 518 ms Normal sinus rhythm T wave abnormality, consider inferolateral ischemia Prolonged QT Abnormal ECG When compared with ECG of 18-Sep-2024 14:48, T wave inversion less evident in Inferior leads T wave inversion less evident in Anterolateral leads Confirmed by Satinder Doss ([id number]) on 09/24/2024 3:19:29 PM Referred By: Bill Sanford Confirmed By: Satinder Doss
[2024-09-24] MEDS: ASCORBIC ACID 500 MG TAB PO SCH (21:16)
[2024-09-24] MEDS: traZODone HCL 50 MG TAB PO SCH (21:17)
[2024-09-24] MEDS: risperiDONE 2 MG TABLET PO SCH (21:17)
[2024-09-24] MEDS: LORazepam 1 MG TAB PO SCH (21:21)
[2024-09-24] MEDS ORDERED: risperiDONE 1 MG/ML SOLUTION PO ONE (22:00)
--- NOTE | 2024-09-25 14:15 | Psychiatric Progress Note ---
Date of Service September 25, 2024 Impression / Recommendations Impression WILL PERSAUD is a 59-year-old wm with a history of psychosis, lilly, and was admitted on 09/12/24 20:08 on a 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 Initially hospitalized for management of hyponatremia and stabilized; had NSTEMI and stabilized; now transferred to inpatient [facility]. Currently on 303 involuntary commitment which expires on 10/01/2024. Diagnostically consistent with unspecified psychosis-differential includes schizoaffective d/o vs schizophrenia vs BPAD current mixed episode. Substance- induced unlikely given negative UDS and history of past psychiatric hosp italizations. Also with psychogenic polydipsia. A: Patient presenting more stable mood, less racing thoughts, improved outlook, less preoccupation. EKG reviewed and presents with prolonged QT over 520; likely due to recent venlafaxine initiation. Plan to DC venlafaxine and trial low-dose escitalopram; medication s/e, risks addressed with patient and agreeable. Plan for BMP, urinalysis, urine osmolality tomorrow and will repeat EKG prior to discharge. Coordinating with social work for aftercare planning. Second loading dose of Invega Sustenna planned for . MNPR due to psychosis and inability to tolerate a roommate Overall, I spent a total of 35 minutes with this case including review of chart records, nursing report, review of lab work, direct evaluation of the patient at bedside, counseling the patient, multidisciplinary team meeting, orders, and documentation in the electronic health record and reviewing past medication scripts. (1) Bipolar 1 disorder, mixed: (2) Psychotic disorder: (3) Psychogenic polydipsia: (4) Cardiomyopathy, dilated, nonischemic: (5) Prolonged QT interval: (6) Abnormal echocardiogram: Plan 09/25/2024: Discontinue venlafaxine. Start escitalopram 5 mg daily. BMP, UA, urine osmolality tomorrow morning. EKG planned for . 09/24/2024: Water restriction at 2 L daily. Start trazodone 50 mg at bedtime. Decrease lorazepam to 1 mg at bedtime. Start Methenamine 1 g twice daily. 09/23/2024: Urinalysis and urine osmolality tomorrow a.m. BMP and EKG tomorrow. Discontinue sertraline. Start venlafaxine extended release 37.5 mg daily. Initiate Invega Sustenna 234 mg IM once. Lorazepam decreased to 1.5 mg at bedtime. 09/22/2024: Continue medications and treatment plan. 09/21/2024: -Continue current medications and tx plan -Recheck Na+ tomorrow 09/20/2024: -Discontinue fluid restrictions, recheck Na+ on 09/22/2024 -Trial very low dose sertraline 12.5mg daily (given concern for worsening hypomania but also with potential mixed mood symptoms) 09/19/2024: -Lorazepam 0.5mg BID prn for agitation/mood lability 09/18/2024: -Increase lorazepam back to 2mg HS due to poor sleep and increased symptoms of lilly today -Switch to risperidone 1mg BID ODT for improved adherence -Mouth checks for medication adherence 09/17/2024: -Decrease lorazepam to 1mg HS due to her ongoing report of difficulty focusing and feeling sedated -Continue risperidone 1mg BID -Ease fluid restriction slightly, repeat Na+ in 2 days -Repeat EKG tomorrow to assess QTc -Start Macrobid 100mg BID for 5 days 09/16/2024: -Increase risperidone to 1mg qAM and olanzapine 10mg prn IM for medication over objection -Continue risperidone 1mg HS -Continue water restriction and use of separate bathroom to avoid excess intake -Will repeat EKG again on 09/18/2024 to assess QTc 09/15/2024: -Start risperidone 0.5mg QAM po and olanzapine 10mg prn IM for medication over objection -Continue risperidone 1mg HS -Continue water restriction and use of separate bathroom to avoid excess intake -Continue with routine EKG q2-3 days to assess QTc as further doses of antipsychotic medication are utilized 09/14/2024: Water restriction at 1500 mL. Water turned off in bathroom with supervised bathroom visits. Discontinue Abilify and start risperidone 1 mg at bedtime. Draw blood sodium and urine osmolality tomorrow morning. Zofran ODT as needed started. EKG scheduled for tomorrow to monitor QTc prolongation. Vit D 5000un daily started. 09/13/2024: The patient was admitted to the [facility] ([facility] unit) on q15 min checks (behavioral with suicide precautions) for safety. The patient will participate in group, recreational, and milieu therapies and will be offered additional individual and family sessions as clinically appropriate. - Repeat EKG. Draw labs for BMP, vitamin D, B12. Draw urinalysis, urine osmolality. - Start Abilify 10 mg at bedtime. - Continue Lorazepam 2mg PO HS Inventory Assets Strengths: adherent to treatment, future oriented Needs: improved insight, social supports Suicide Risk Level Suicide Risk Level: Moderate (q15 min suicide checks) (mood changes and psychosis with disorganization and reports depression but denies SI and feels safe in the hospital, feels able to ask for support) Risk Factors Assessment Male: No : Yes Do You Have Access To A Gun?: No Health Problems: Yes Mental Health Diagnoses: Yes Substance Use Disorders: No Previous Attempt: No Family History of Suicide: No Previous Psychiatric Hospitalization: Yes Hopelessness: No Protective Factors Assessment Church Beliefs: Yes : No Responsible for Young Children: No Employed: No Stable Relationships: No Supportive Family: No Good Rapport with Provider: Yes Absence of Any Risk Factors Above: No Interval History Identifying Information WILL PERSAUD is a 59-year-old F who currently lives in alone, has a history of psychosis, lilly, and was admitted on 09/12/24 20:08 on a 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 Initially hospitalized for management of hyponatremia and stabilized; had NSTEMI and stabilized; now transferred to inpatient U. Chief Complaint "Okay" Review of Systems Sleep Information Total Hours of Sleep: 6.30 Sleep Comments: HS Ativan and Trazadone Meal Information Percent Meal Consumed - Breakfast: 100 Percent Meal Consumed - Lunch: 100 Percent Meal Consumed - Dinner: 100 Subjective Subjective Patient was seen & assessed and interval progress reviewed with treatment team nursing and social work Patient slept 6.5 hours per nursing. She says that she slept well. Reports plan to go back to her job at [employer]. Unsure if she will return and asked me for advice. Says that her mood is "better" and rates it at 6 out of 10. Says that she has no energy but it is improving slowly. She denies SI. Patient appears more calmer today. Slightly withdrawn. Discussed her EKG and lab findings and expected discharge plan and agreeable. Physical Exam Mental Examination Appearance: Well Groomed Eye Contact: Maintains Eye Contact Motor Behavior: Unremarkable Speech: Normal Mood: Euthymic and Calm Affect: Constricted Thought Process: Intact and Goal Oriented Thought Content: Intact and Linear Hallucinations: None Insight: Poor (to limited, improved) Judgement: Poor (to limited, improved) Vital Signs (Past 24 Hours) Last Vital Signs Temp 36.4 C L 09/25/24 06:52 Pulse 76 09/25/24 06:53 Resp 18 09/25/24 06:52 BP 108/70 09/25/24 06:53 Pulse Ox 97 09/16/24 20:48 O2 Del Method Room Air 09/16/24 20:48 Results & Data ([facility]) Laboratory Results Laboratory Results - last 24 hr 09/24/24 09/24/24 09/25/24 17:00 20:11 06:56 POC Glucose 98 138 H 179 H 09/25/24 12:07 POC Glucose 103 H Current Inpatient Medications Current Inpatient Medications: Current Inpatient Medications Acetaminophen (Acetaminophen 325 Mg Tab) 650 mg PO Q4H PRN PRN Reason: Headache or Minor Fever Stop: 10/12/24 14:31 Last Admin: 09/25/24 05:00 Dose: 650 mg Al Hydrox/Mg Hydrox/Simethicone (Aluminum/Magnesium Susp 30 Ml Udc) 30 ml PO Q4H PRN PRN Reason: GI Upset Stop: 10/12/24 14:31 Ascorbic Acid (Ascorbic Acid 500 Mg Tab) 1,000 mg PO BID TONEY Stop: 10/24/24 20:59 Last Admin: 09/25/24 08:36 Dose: 1,000 mg Aspirin (Aspirin 81 Mg Chew) 81 mg PO DAILY TONEY Stop: 10/13/24 08:59 Last Admin: 09/25/24 08:36 Dose: 81 mg Atorvastatin Calcium (Atorvastatin 40 Mg Tab) 40 mg PO QAM TONEY Stop: 10/13/24 08:59 Last Admin: 09/25/24 08:36 Dose: 40 mg Bismuth Subsalicylate (Bismuth Subsalicylate 262 Mg Chew) 2 tab PO Q30M PRN PRN Reason: Loose Stool/Diarrhea Stop: 10/12/24 14:31 Dextrose (Dextrose 50% 50 Ml Syringe) 25 - 50 ml IV UD PRN; Protocol PRN Reason: Hypoglycemia Protocol Stop: 10/24/24 08:44 Docusate Sodium (Docusate Sodium 100 Mg Cap) 100 mg PO BID PRN PRN Reason: constipation Stop: 10/16/24 20:59 Last Admin: 09/24/24 04:17 Dose: 100 mg Escitalopram Oxalate (Escitalopram Oxalate 10 Mg Tab) 5 mg PO QAM [facility] Stop: 10/26/24 08:59 Glucagon (Glucagon For Inj 1 Mg Vial) 1 mg SQ UD PRN; Protocol PRN Reason: Hypoglycemia Protocol Stop: 10/24/24 08:44 Glucose (Glucose 40% Gel 15 Gm Tube) 15 - 30 gm PO UD PRN; Protocol PRN Reason: Hypoglycemia Protocol Stop: 10/24/24 08:44 Glucose (Glucose 10 Tab/Tube) 4 - 8 tab PO UD PRN; Protocol PRN Reason: Hypoglycemia Protocol Stop: 10/24/24 08:44 Hydrocortisone (Hydrocortisone 1% Oint 30 Gm Tube) 1 appln EXT BID PRN PRN Reason: Affected Skin Folds Stop: 10/12/24 21:58 Last Admin: 09/13/24 16:42 Dose: 1 appln Hydroxyzine HCl (Hydroxyzine Hcl 25 Mg Tab) 50 mg PO HSZ PRN PRN Reason: Insomnia Stop: 10/12/24 14:31 Hydroxyzine HCl (Hydroxyzine Hcl 25 Mg Tab) 25 mg PO Q4H PRN PRN Reason: Anxiety Stop: 10/12/24 14:31 Last Admin: 09/25/24 06:24 Dose: 25 mg Ibuprofen (Ibuprofen 600 Mg Tab) 600 mg PO Q8H PRN PRN Reason: back pain Stop: 10/16/24 10:59 Last Admin: 09/24/24 20:35 Dose: 600 mg Insulin Aspart (Insulin Aspart Per Unit Charge) 0 [facility]; Protocol Stop: 10/12/24 21:59 Last Admin: 09/25/24 12:48 Dose: 2 units Levothyroxine Sodium (Levothyroxine Sodium 25 Mcg Tablet) 25 mcg PO DAILYBB [facility] Stop: 10/13/24 07:59 Last Admin: 09/25/24 08:35 Dose: 25 mcg Lorazepam (Lorazepam 2 Mg/1 Ml Vial) 2 mg IM Q8H PRN PRN Reason: Anxiety/Agitation Stop: 10/12/24 21:01 Lorazepam (Lorazepam 0.5 Mg Tab) 0.5 mg PO BID PRN PRN Reason: Anxiety Stop: 10/19/24 09:10 Last Admin: 09/21/24 17:06 Dose: 0.5 mg Lorazepam (Lorazepam 1 Mg Tab) 1 mg PO HS [facility] Stop: 10/24/24 21:59 Last Admin: 09/24/24 21:21 Dose: 1 mg Magnesium Hydroxide (Magnesium Hydroxide Susp 30 Ml Udc) 30 ml PO DAILY PRN PRN Reason: Constipation Stop: 10/12/24 14:31 Last Admin: 09/24/24 15:19 Dose: 30 ml Metformin HCl (Metformin Hcl 500 Mg Tab) 1,000 mg PO BIDM [facility] Stop: 10/13/24 08:59 Last Admin: 09/25/24 08:36 Dose: 1,000 mg Methenamine Hippurate (Methenamine Hippurate 1 Gm Tab) 1 gm PO BID [facility] Stop: 09/29/24 11:44 Last Admin: 09/25/24 08:36 Dose: 1 gm Metoprolol Succinate (Metoprolol Succ 50mg Ext Rel Tab) 50 mg PO BID [facility] Stop: 10/12/24 20:59 Last Admin: 09/25/24 08:37 Dose: 50 mg Miscellaneous (Carbohydrates For Hypoglycemia ) 15 - 30 gm PO UD PRN PRN Reason: Hypoglycemia Treatment Stop: 10/24/24 08:44 Miscellaneous Information (Pharmacy Glycemic Mgmt Consult) 1 each N/A UD PRN; Protocol PRN Reason: Consult Stop: 10/12/24 22:55 Olanzapine (Olanzapine 10 Mg/2.1 Ml Sdv) 10 mg IM DAILY PRN PRN Reason: medication over objection Stop: 10/16/24 08:59 Ondansetron HCl (Ondansetron 4 Mg Od Tab) 4 mg PO Q6H PRN PRN Reason: Nausea Stop: 10/14/24 11:27 Last Admin: 09/23/24 14:30 Dose: 4 mg Pantoprazole Sodium (Pantoprazole 40 Mg Tab) 40 mg PO QAM [facility] Stop: 10/13/24 08:59 Last Admin: 09/25/24 08:37 Dose: 40 mg Pregabalin (Pregabalin 75 Mg Cap) 75 mg PO BID [facility] Stop: 10/12/24 20:59 Last Admin: 09/25/24 08:39 Dose: 75 mg Risperidone (Risperidone 1 Mg Tablet) 1 mg PO QAM [facility] Stop: 10/24/24 10:49 Last Admin: 09/25/24 08:37 Dose: 1 mg Risperidone (Risperidone 2 Mg Tablet) 2 mg PO HS TONEY Stop: 10/24/24 21:59 Last Admin: 09/24/24 21:17 Dose: 2 mg Sodium Chloride (Sodium Chloride 0.65% Na Soln 45 Ml ([place])) 1 - 2 sprays NA PRN PRN PRN Reason: Nasal Dryness/Congestion Stop: 10/12/24 14:31 Trazodone HCl (Trazodone Hcl 50 Mg Tab) 50 mg PO HS TONEY Stop: 10/24/24 21:59 Last Admin: 09/24/24 21:17 Dose: 50 mg Vitamin D (Cholecalciferol 125 Mcg (5,000 Units) Tab) 125 mcg PO QAM [facility] Stop: 10/14/24 08:59 Last Admin: 09/25/24 08:36 Dose: 125 mcg Mental Health & Subst Abuse Tx Psychiatrist Name of Psychiatrist: Ramesh Wang - Intake via phone call (For therapy and psychiatry) Psychiatrist's Date Of Appointment With Psychiatric Provider: 10/02/24 Time of Appointment with Psychiatrist: 3PM Psychiatric Appointment Comment: Phone call appointment Tax Examining Technician Name of Tax Examining Technician: Service Access Managment ([facility]) administrative manager in [facility] Phone Number for Tax Examining Technician: [phone] Date of Appointment with Tax Examining Technician: 09/27/24 Time of Appointment with Tax Examining Technician: 930AM Case Management Appointment Comment: Intake appt via phone call Post Discharge Appointments Primary Care Physician Name Of Family Doctor/PCP: Rick Tolliver Specialist Name of Specialist: Crisis support hotline Phone Number for Specialist: [phone] Other #1: Name of Aftercare Appointment: Tj cameron administrative manager Caitlin Phone Number of Aftercare Appointment: [phone] Aftercare Appointment Comment: Tj ALVES CM is available upon discharge to assist with aftercare support
[2024-09-25] MEDS: LANTUS PER UNIT CHARGE SC SCH (21:07)
[2024-09-26 08:36] LABS: Anion Gap 6 (3-11); Blood Urea Nitrogen 13 mg/dl (6-23); Calcium 9.1 mg/dl (8.6-10.3); Carbon Dioxide 29 mmol/L (21-32); Chloride 103 mmol/L (98-107); Glucose 148 mg/dl (70-99(Fasting)); Potassium 4.1 mmol/L (3.5-5.1); Sodium 138 mmol/L (136-145)
[2024-09-26] MEDS: ESCITALOPRAM OXALATE 10 MG TAB PO SCH (09:00)
[2024-09-26 13:26] LABS: Appearance Urine Clear (Clear); Bacteria Urine Automated None Seen (None Seen); Bilirubin Urine Negative (Negative); Blood Urine Negative (Negative); Cast Urine Automated 0-2 /lpf (0-2); Color Urine Yellow; Glucose Urine UA Negative (Negative); Ketones Urine Trace (Negative); Leukocyte Esterase Urine 2+ (Negative); Nitrite Urine Negative (Negative); Protein Urine Negative (Negative); RBC Urine Automated 0-2 /hpf (0-2); Specific Gravity Urine 1.022 (1.000-1.030); Urobilinogen Urine Negative (Negative); pH Urine 5.5 (4.5-7.5)
--- NOTE | 2024-09-26 14:45 | Psychiatric Progress Note ---
Date of Service September 26, 2024 Impression / Recommendations Impression WILL PERSAUD is a 59-year-old wm with a history of psychosis, lilly, and was admitted on 09/12/24 20:08 on a 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 Initially hospitalized for management of hyponatremia and stabilized; had NSTEMI and stabilized; now transferred to inpatient BHU. Currently on 303 involuntary commitment which expires on 10/01/2024. Diagnostically consistent with unspecified psychosis-differential includes schizoaffective d/o vs schizophrenia vs BPAD current mixed episode. Substance- induced unlikely given negative UDS and history of past psychiatric hosp italizations. Also with psychogenic polydipsia. A: Patient presents more stable mood and appears to have better control over thirst. Sodium resulted at 138 and within normal limits. She is hopeful and future oriented. No prominent irritable or anxious mood. Plan for second loading dose of Invega Sustenna 156 mg tomorrow. We will repeat EKG to assess prolonged QT. MNPR due to psychosis and inability to tolerate a roommate Overall, I spent a total of 35 minutes with this case including review of chart records, nursing report, review of lab work, direct evaluation of the patient at bedside, counseling the patient, multidisciplinary team meeting, orders, and documentation in the electronic health record and reviewing past medication scripts. (1) Bipolar 1 disorder, mixed: (2) Psychotic disorder: (3) Psychogenic polydipsia: (4) Cardiomyopathy, dilated, nonischemic: (5) Prolonged QT interval: (6) Abnormal echocardiogram: Plan 09/26/2024: EKG this evening. Continue medications and treatment plan. Invega Sustenna 156 mg IM once tomorrow morning. 09/25/2024: Discontinue venlafaxine. Start escitalopram 5 mg daily. BMP, UA, urine osmolality tomorrow morning. EKG planned for . 09/24/2024: Water restriction at 2 L daily. Start trazodone 50 mg at bedtime. Decrease lorazepam to 1 mg at bedtime. Start Methenamine 1 g twice daily. 09/23/2024: Urinalysis and urine osmolality tomorrow a.m. BMP and EKG tomorrow. Discontinue sertraline. Start venlafaxine extended release 37.5 mg daily. Initiate Invega Sustenna 234 mg IM once. Lorazepam decreased to 1.5 mg at bedtime. 09/22/2024: Continue medications and treatment plan. 09/21/2024: -Continue current medications and tx plan -Recheck Na+ tomorrow 09/20/2024: -Discontinue fluid restrictions, recheck Na+ on 09/22/2024 -Trial very low dose sertraline 12.5mg daily (given concern for worsening hypomania but also with potential mixed mood symptoms) 09/19/2024: -Lorazepam 0.5mg BID prn for agitation/mood lability 09/18/2024: -Increase lorazepam back to 2mg HS due to poor sleep and increased symptoms of lilly today -Switch to risperidone 1mg BID ODT for improved adherence -Mouth checks for medication adherence 09/17/2024: -Decrease lorazepam to 1mg HS due to her ongoing report of difficulty focusing and feeling sedated -Continue risperidone 1mg BID -Ease fluid restriction slightly, repeat Na+ in 2 days -Repeat EKG tomorrow to assess QTc -Start Macrobid 100mg BID for 5 days 09/16/2024: -Increase risperidone to 1mg qAM and olanzapine 10mg prn IM for medication over objection -Continue risperidone 1mg HS -Continue water restriction and use of separate bathroom to avoid excess intake -Will repeat EKG again on 09/18/2024 to assess QTc 09/15/2024: -Start risperidone 0.5mg QAM po and olanzapine 10mg prn IM for medication over objection -Continue risperidone 1mg HS -Continue water restriction and use of separate bathroom to avoid excess intake -Continue with routine EKG q2-3 days to assess QTc as further doses of antipsychotic medication are utilized 09/14/2024: Water restriction at 1500 mL. Water turned off in bathroom with supervised bathroom visits. Discontinue Abilify and start risperidone 1 mg at bedtime. Draw blood sodium and urine osmolality tomorrow morning. Zofran ODT as needed started. EKG scheduled for tomorrow to monitor QTc prolongation. Vit D 5000un daily started. 09/13/2024: The patient was admitted to the [facility] ([facility] unit) on q15 min checks (behavioral with suicide precautions) for safety. The patient will participate in group, recreational, and milieu therapies and will be offered additional individual and family sessions as clinically appropriate. - Repeat EKG. Draw labs for BMP, vitamin D, B12. Draw urinalysis, urine osmolality. - Start Abilify 10 mg at bedtime. - Continue Lorazepam 2mg PO HS Inventory Assets Strengths: adherent to treatment, future oriented Needs: improved insight, social supports Suicide Risk Level Suicide Risk Level: Moderate (q15 min suicide checks) (mood changes and psychosis with disorganization and reports depression but denies SI and feels safe in the hospital, feels able to ask for support) Risk Factors Assessment Male: No : Yes Do You Have Access To A Gun?: No Health Problems: Yes Mental Health Diagnoses: Yes Substance Use Disorders: No Previous Attempt: No Family History of Suicide: No Previous Psychiatric Hospitalization: Yes Hopelessness: No Protective Factors Assessment Evangelical Beliefs: Yes : No Responsible for Young Children: No Employed: No Stable Relationships: No Supportive Family: No Good Rapport with Provider: Yes Absence of Any Risk Factors Above: No Interval History Identifying Information WILL PERSAUD is a 59-year-old F who currently lives in alone, has a history of psychosis, lilly, and was admitted on 09/12/24 20:08 on a 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 Initially hospitalized for management of hyponatremia and stabilized; had NSTEMI and stabilized; now transferred to inpatient BHU. Chief Complaint "Good" Review of Systems Sleep Information Total Hours of Sleep: 6.75 Sleep Comments: HS Ativan and Trazadone Meal Information Percent Meal Consumed - Breakfast: 100 Percent Meal Consumed - Lunch: 100 Percent Meal Consumed - Dinner: 90 Subjective Subjective Patient was seen & assessed and interval progress reviewed with treatment team nursing and social work Nursing reports patient slept 6 hours. Is able to get a discount for releasing her impounded car. She reports feeling better on Lexapro. Has been controlling her water intake. Feels hopeful for the future. Says that she can manage her diabetes upon discharge. Agreeable to the second loading dose of Invega Sustenna tomorrow. Wants to get her meds at [facility] in [place]. Has been making outpatient appointments herself for her pain specialist. Physical Exam Mental Examination Appearance: Well Groomed Eye Contact: Maintains Eye Contact Motor Behavior: Unremarkable Speech: Normal Mood: Euthymic and Calm Affect: Constricted Thought Process: Intact and Goal Oriented Thought Content: Intact and Linear Hallucinations: None Insight: Poor (to limited, improved) Judgement: Poor (to limited, improved) Vital Signs (Past 24 Hours) Last Vital Signs Temp 36.9 C 09/26/24 06:42 Pulse 93 H 09/26/24 06:43 Resp 16 09/26/24 06:42 BP 116/75 09/26/24 06:43 Pulse Ox 97 09/16/24 20:48 O2 Del Method Room Air 09/16/24 20:48 Results & Data ([facility]) Laboratory Results Laboratory Results - last 24 hr 09/25/24 09/25/24 09/26/24 16:59 20:11 07:50 Sodium Potassium Chloride Carbon Dioxide Anion Gap BUN Creatinine Est Cr Clr Drug Dosing eGFR BUN/Creatinine Ratio Glucose POC Glucose 174 H 99 150 H Calcium Urine Color Urine Appearance Urine pH Ur Specific [place] Urine Protein Urine Glucose (UA) Urine Ketones Urine Blood Urine Nitrite Urine Bilirubin Urine Urobilinogen Ur Leukocyte Esterase Urine WBC (Auto) Urine RBC (Auto) U Hyaline Cast (Auto) U Epithel Cells (Auto) Urine Bacteria (Auto) Urine Osmolality 09/26/24 09/26/24 09/26/24 07:55 12:22 13:15 Sodium 138 Potassium 4.1 Chloride 103 Carbon Dioxide 29 Anion Gap 6 BUN 13 Creatinine 0.62 Est Cr Clr Drug Dosing Not Reportable eGFR 102.52 BUN/Creatinine Ratio 21.0 H Glucose 148 H POC Glucose 115 H Calcium 9.1 Urine Color Yellow Urine Appearance Clear Urine pH 5.5 Ur Specific [place] 1.022 Urine Protein Negative Urine Glucose (UA) Negative Urine Ketones Trace H Urine Blood Negative Urine Nitrite Negative Urine Bilirubin Negative Urine Urobilinogen Negative Ur Leukocyte Esterase 2+ H Urine WBC (Auto) 6-10 H Urine RBC (Auto) 0-2 U Hyaline Cast (Auto) 0-2 U Epithel Cells (Auto) 6-10 H Urine Bacteria (Auto) None Seen Urine Osmolality 695 Current Inpatient Medications Current Inpatient Medications: Current Inpatient Medications Acetaminophen (Acetaminophen 325 Mg Tab) 650 mg PO Q4H PRN PRN Reason: Headache or Minor Fever Stop: 10/12/24 14:31 Last Admin: 09/26/24 13:04 Dose: 650 mg Al Hydrox/Mg Hydrox/Simethicone (Aluminum/Magnesium Susp 30 Ml Udc) 30 ml PO Q4H PRN PRN Reason: GI Upset Stop: 10/12/24 14:31 Ascorbic Acid (Ascorbic Acid 500 Mg Tab) 1,000 mg PO BID TONEY Stop: 10/24/24 20:59 Last Admin: 09/26/24 08:58 Dose: 1,000 mg Aspirin (Aspirin 81 Mg Chew) 81 mg PO DAILY TONEY Stop: 10/13/24 08:59 Last Admin: 09/26/24 08:59 Dose: 81 mg Atorvastatin Calcium (Atorvastatin 40 Mg Tab) 40 mg PO QAM TONEY Stop: 10/13/24 08:59 Last Admin: 09/26/24 08:59 Dose: 40 mg Bismuth Subsalicylate (Bismuth Subsalicylate 262 Mg Chew) 2 tab PO Q30M PRN PRN Reason: Loose Stool/Diarrhea Stop: 10/12/24 14:31 Dextrose (Dextrose 50% 50 Ml Syringe) 25 - 50 ml IV UD PRN; Protocol PRN Reason: Hypoglycemia Protocol Stop: 10/24/24 08:44 Docusate Sodium (Docusate Sodium 100 Mg Cap) 100 mg PO BID PRN PRN Reason: constipation Stop: 10/16/24 20:59 Last Admin: 09/24/24 04:17 Dose: 100 mg Escitalopram Oxalate (Escitalopram Oxalate 10 Mg Tab) 5 mg PO QAM [facility] Stop: 10/26/24 08:59 Last Admin: 09/26/24 09:00 Dose: 5 mg Glucagon (Glucagon For Inj 1 Mg Vial) 1 mg SQ UD PRN; Protocol PRN Reason: Hypoglycemia Protocol Stop: 10/24/24 08:44 Glucose (Glucose 40% Gel 15 Gm Tube) 15 - 30 gm PO UD PRN; Protocol PRN Reason: Hypoglycemia Protocol Stop: 10/24/24 08:44 Glucose (Glucose 10 Tab/Tube) 4 - 8 tab PO UD PRN; Protocol PRN Reason: Hypoglycemia Protocol Stop: 10/24/24 08:44 Hydrocortisone (Hydrocortisone 1% Oint 30 Gm Tube) 1 appln EXT BID PRN PRN Reason: Affected Skin Folds Stop: 10/12/24 21:58 Last Admin: 09/13/24 16:42 Dose: 1 appln Hydroxyzine HCl (Hydroxyzine Hcl 25 Mg Tab) 50 mg PO HSZ PRN PRN Reason: Insomnia Stop: 10/12/24 14:31 Hydroxyzine HCl (Hydroxyzine Hcl 25 Mg Tab) 25 mg PO Q4H PRN PRN Reason: Anxiety Stop: 10/12/24 14:31 Last Admin: 09/25/24 06:24 Dose: 25 mg Ibuprofen (Ibuprofen 600 Mg Tab) 600 mg PO Q8H PRN PRN Reason: back pain Stop: 10/16/24 10:59 Last Admin: 09/24/24 20:35 Dose: 600 mg Insulin Aspart (Insulin Aspart Per Unit Charge) 0 units SC [facility]; Protocol Stop: 10/12/24 21:59 Last Admin: 09/26/24 13:01 Dose: 2 units Insulin Glargine (Lantus Per Unit Charge) 3 units SC [facility] Stop: 10/25/24 21:59 Last Admin: 09/25/24 21:07 Dose: 3 units Levothyroxine Sodium (Levothyroxine Sodium 25 Mcg Tablet) [facility] Stop: 10/13/24 07:59 Last Admin: 09/26/24 08:58 Dose: 25 mcg Lorazepam (Lorazepam 2 Mg/1 Ml Vial) 2 mg IM Q8H PRN PRN Reason: Anxiety/Agitation Stop: 10/12/24 21:01 Lorazepam (Lorazepam 0.5 Mg Tab) 0.5 mg PO BID PRN PRN Reason: Anxiety Stop: 10/19/24 09:10 Last Admin: 09/21/24 17:06 Dose: 0.5 mg Lorazepam (Lorazepam 1 Mg Tab) 1 mg PO [facility] Stop: 10/24/24 21:59 Last Admin: 09/25/24 21:06 Dose: 1 mg Magnesium Hydroxide (Magnesium Hydroxide Susp 30 Ml Udc) 30 ml PO DAILY PRN PRN Reason: Constipation Stop: 10/12/24 14:31 Last Admin: 09/25/24 17:54 Dose: 30 ml Metformin HCl (Metformin Hcl 500 Mg Tab) [facility] Stop: 10/13/24 08:59 Last Admin: 09/26/24 09:00 Dose: 1,000 mg Methenamine Hippurate (Methenamine Hippurate 1 Gm Tab) 1 gm PO BID [facility] Stop: 09/29/24 11:44 Last Admin: 09/26/24 09:01 Dose: 1 gm Metoprolol Succinate (Metoprolol Succ 50mg Ext Rel Tab) 50 mg PO BID [facility] Stop: 10/12/24 20:59 Last Admin: 09/26/24 09:01 Dose: 50 mg Miscellaneous (Carbohydrates For Hypoglycemia ) 15 - 30 gm PO UD PRN PRN Reason: Hypoglycemia Treatment Stop: 10/24/24 08:44 Miscellaneous Information (Pharmacy Glycemic Mgmt Consult) 1 each N/A UD PRN; Protocol PRN Reason: Consult Stop: 10/12/24 22:55 Olanzapine (Olanzapine 10 Mg/2.1 Ml Sdv) 10 mg IM DAILY PRN PRN Reason: medication over objection Stop: 10/16/24 08:59 Ondansetron HCl (Ondansetron 4 Mg Od Tab) 4 mg PO Q6H PRN PRN Reason: Nausea Stop: 10/14/24 11:27 Last Admin: 09/23/24 14:30 Dose: 4 mg Paliperidone Palmitate (Paliperidone Palmitate 156 Mg/Ml Syr) 156 mg IM ONE ONE Stop: 09/27/24 09:01 Pantoprazole Sodium (Pantoprazole 40 Mg Tab) 40 mg PO QAM [facility] Stop: 10/13/24 08:59 Last Admin: 09/26/24 09:01 Dose: 40 mg Pregabalin (Pregabalin 75 Mg Cap) 75 mg PO BID [facility] Stop: 10/12/24 20:59 Last Admin: 09/26/24 09:04 Dose: 75 mg Risperidone (Risperidone 1 Mg Tablet) 1 mg PO QAM [facility] Stop: 10/24/24 10:49 Last Admin: 09/26/24 09:02 Dose: 1 mg Risperidone (Risperidone 2 Mg Tablet) 2 mg PO HS [facility] Stop: 10/24/24 21:59 Last Admin: 09/25/24 21:07 Dose: 2 mg Sodium Chloride (Sodium Chloride 0.65% Na Soln 45 Ml ([place])) 1 - 2 sprays NA PRN PRN PRN Reason: Nasal Dryness/Congestion Stop: 10/12/24 14:31 Vitamin D (Cholecalciferol 125 Mcg (5,000 Units) Tab) 125 mcg PO QAM TONEY Stop: 10/14/24 08:59 Last Admin: 09/26/24 08:59 Dose: 125 mcg Mental Health & Subst Abuse Tx Psychiatrist Name of Psychiatrist: [facility] - Intake via phone call (For therapy and psychiatry) Psychiatrist's Date Of Appointment With Psychiatric Provider: 10/02/24 Time of Appointment with Psychiatrist: 3PM Psychiatric Appointment Comment: Phone call appointment Therapist Name of Therapist: Ramesh Wang - will be assigned a therapist after intake appt on 10/02/24 Therapist's Insurance Sales Specialist Name of Insurance Sales Specialist: [employer] (JERROD) senior technical manager in [facility] Phone Number for Insurance Sales Specialist: [phone] Date of Appointment with Insurance Sales Specialist: 09/27/24 Time of Appointment with Insurance Sales Specialist: 930AM Case Management Appointment Comment: Intake appt via phone call Post Discharge Appointments Primary Care Physician Name Of Family Doctor/PCP: Dr. Gee Escalera [facility] Date of Future Appointment with PCP: 10/08/24 Time of Appointment with PCP: 3PM Pain Clinic Name of Pain Clinic: Dr. Kwon - Injection appt Date of Appointment with Pain Clinic: 10/03/24 Time of Appointment with Pain Clinic: 1235PM Specialist Name of Specialist: [facility] - Dr. Qasim Schulte Phone Number for Specialist: [phone] Date of Appointment with Specialist: 10/12/24 Time of Appointment with Specialist: 10:45AM Other #1: Name of Aftercare Appointment: Tj ALVES senior technical manager Caitlin Phone Number of Aftercare Appointment: [phone] Aftercare Appointment Comment: Tj ALVES CM is available upon discharge to assist with aftercare support #2: Name of Aftercare Appointment: Crisis support hotline Phone Number of Aftercare Appointment: [phone] #3: Name of Aftercare Appointment: Error
[2024-09-27 06:47] VITALS: RESP 18; TEMP 97.3
--- NOTE | 2024-09-27 10:05 | Discharge Summary ---
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 DAILYBB Qty: 30 0RF methenamine hippurate 1 gram Tablet 1 g PO BID Qty: 60 0RF cholecalciferol (vitamin D3) 125 mcg (5,000 unit) Tablet 125 mcg PO QAM Qty: 30 0RF pantoprazole 40 mg Tablet,Delayed Release (Dr/Ec) 40 mg PO QAM Qty: 30 0RF lorazepam 1 mg Tablet 1 mg PO HS PRN (Reason: insomnia) Qty: 15 0RF pregabalin [Lyrica] 75 mg Capsule 75 mg PO BID Qty: 60 0RF aspirin 81 mg tablet,delayed release (DR/EC) 81 mg PO DAILY Qty: 30 0RF escitalopram oxalate 5 mg tablet 5 mg PO QAM Qty: 30 0RF ascorbic acid (vitamin C) 1,000 mg capsule 1,000 mg PO BID Qty: 60 0RF insulin glargine [Lantus Solostar U-100 Insulin] 100 unit/mL (3 mL) insulin pen 4 unit subcut PM Qty: 15 0RF insulin aspart U-100 [Novolog FlexPen U-100 Insulin] 100 unit/mL (3 mL) insulin pen 3 unit subcut TID Qty: 15 0RF nitrofurantoin macrocrystal 100 mg capsule 100 mg PO BID 5 Days Qty: 10 0RF Rx Instructions: must administer with a meal/food nitrofurantoin macrocrystal 50 mg capsule 50 mg PO HS Qty: 30 0RF Rx Instructions: must administer with a meal/food. Take every night after completing initial treatment course for UTI. Continued trospium 20 mg tablet 20 mg PO BID montelukast 10 mg tablet 10 mg PO HS Trulicity 4.5 mg/0.5 mL pen injector 4.5 mg SUBCUT WK cyclobenzaprine 5 mg tablet 5 mg TID PRN (Reason: Muscle Spasm) Discontinued atorvastatin [Lipitor] 40 mg tablet 40 mg PO DAILY metformin 1,000 mg tablet 1,000 mg PO BID levothyroxine 25 mcg tablet 25 mcg PO DAILY insulin aspart U-100 [Novolog FlexPen U-100 Insulin] 100 unit/mL (3 mL) insulin pen SUBCUT DIRECTED methenamine hippurate 1 gram tablet 1 g BID pregabalin 75 mg capsule 75 mg PO BID pantoprazole 40 mg tablet,delayed release (DR/EC) 40 mg PO DAILY insulin glargine [Basaglar KwikPen U-100 Insulin] 100 unit/mL (3 mL) insulin pen 16 unit SUBCUT HS insulin glargine [Lantus U-100 Insulin] 100 unit/mL Solution 5 unit subcut DAILY Qty: 10 0RF aspirin 81 mg Tablet,Delayed Release (Dr/Ec) 81 mg PO DAILY Qty: 1 0RF metoprolol succinate 50 mg Tablet Extended Release 24 Hr 50 mg PO BID Qty: 30 0RF methenamine hippurate 1 gram tablet Discharge Orders: Discharge Order (Routine); Ordered 09/27/24 Ordered By: Bill Sanford Admission Data Admit Date/Time: 09/12/24 20:08 Attending Provider: Bill Sanford Admit Provider: Bill Sanford Primary Care Provider: Gee Escalera Other Interventions: PSY Interdisciplinary Discharge Planning Last Done: 09/27/24 08:56 Coding [place] [address] D/C day mgmt > 30 min Patient Type Established History Comprehensive Exam Comprehensive Medical Decision Making High Complexity Diagnoses Bipolar 1 disorder, mixed F31.60 Psychotic disorder F29 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
[2024-09-27 10:06] VITALS: BP 107/69; PULSE 86
[2024-09-27] MEDS: NITROFURANTOIN MONOHYDRATE 100 MG CAP PO STA (10:15)
--- NOTE | 2024-09-27 10:21 | Electrocardiogram Report ---
Test Reason : Blood Pressure : */* mmHG Vent. Rate : 88 BPM Atrial Rate : 88 BPM P-R Int : 162 ms QRS Dur : 94 ms QT Int : 394 ms P-R-T Axes : 68 33 154 degrees QTcB Int : 476 ms Normal sinus rhythm T wave abnormality, consider inferior ischemia T wave abnormality, consider anterolateral ischemia Prolonged QT Abnormal ECG When compared with ECG of 24-Sep-2024 13:49, T wave inversion more evident in Anterolateral leads Confirmed by Satinder Doss ([id number]) on 09/27/2024 10:21:33 AM Referred By: Bill Sanford Confirmed By: Satinder Doss
[2024-09-27] MEDS: PALIPERIDONE PALMITATE 156 MG/ML SYR IM ONE (11:14)
[2024-09-27] MEDS ORDERED: LANTUS PER UNIT CHARGE SC SCH (22:00)
== END 2024-09-27 13:30 | disposition home or self-care (01) | DRG 885 ==
LOC: SUATTDRO 20:08 → 3S 20:08